=== PATIENT | female | born 1945 | race Caucasian/White ===

== ENCOUNTER → 2016-08-09 | Outpatient (CLI) | payer OTHER ==
[~2016-08-09] MED LIST: ATOR10TA82 PO; COEN100C11 PO; LOSA50TA6 PO; OFLO0.3S4 OPR; OMEG-112 PO; PANT40TA PO; PRED1SUS3 OPR; RALO60TA30 PO; RANI300T2 PO; [UNRECOGNIZED DRUG - OTHER] PO
--- NOTE | 2016-08-09 09:16 | DIAGNOSTIC IMAGING REPORT ---
LEFT PELVIS UNILATERAL HIP 1 VIEW CLINICAL HISTORY: LEFT HIP PAIN COMPARISON STUDY: None. FINDINGS: No fracture or dislocation within the pelvis or hips. There is osteitis pubis. Moderate to severe osteoarthritis within the left hip demonstrated by cartilage space narrowing and marginal osteophytes. There is also subchondral sclerosis. The right hip cartilage spaces maintained for age. The sacrum is intact. IMPRESSION: Moderate to severe left hip osteoarthritis. No fracture or dislocation. Electronically signed by: Alexei Braga M.D. 08/09/2016 9:15 AM Dictated Date/Time: 08/09/2016 9:13 AM
== END | disposition home or self-care (01) ==
LOC: C.RDSM 11:08
PROVIDERS: ATTEND Physician Assistant
DX: M25.552 Pain in left hip (principal)

== ENCOUNTER → 2016-08-15 | Outpatient (CLI) | payer OTHER ==
--- NOTE | 2016-08-15 14:09 | MAMMOGRAPHY REPORT ---
BILATERAL DIGITAL SCREENING MAMMOGRAM WITH CAD: 08/15/2016 CLINICAL HISTORY: Routine screening. Patient has no complaints. TECHNIQUE: Bilateral CC and MLO views were obtained. Current study was also evaluated with a Comput er Aided Detection (CAD) system. COMPARISON: Comparison is made to exams dated: 08/16/2015 mammogram, 01/27/2015 mammogram, 4 mammogram, 01/05/2013 mammogram, 12/20/2011 mammogram, and 12/18/2010 mammogram - [facility]. BREAST COMPOSITION: There are scattered areas of fibroglandular density in both breasts. FINDINGS: There are bilateral scattered and grouped benign rim calcifications in the breasts. Chang german, there are possible new clusters of microcalcifications in the 12:00 and upper outer middle one third of the left breast, for which additional spot magnification views are recommended. No other suspicious mass, architectural distortion or cluster of suspicious microcalcifications is s een bilaterally. IMPRESSION: ACR BI-RADS CATEGORY 0: INCOMPLETE EVALUATION: NEED ADDITIONAL IMAGING EVALUATION The possible new clusters of microcalcifications in the left 12:00 and upper outer breast need addit ional imaging evaluation. The patient will be called to schedule an appointment. Approximately 10% of breast cancers are not detected with mammography. A negative mammographic repor t should not delay biopsy if a clinically suggestive mass is present. Ellie Levin M.D. ay/:08/15/2016 09:36:05 Wet Primer Powder Blender: Janee COLLINS(Dacrie)(M), [facility] letter sent: Addl Imaging 0 BI-RADS Code: ACR BI-RADS Category 0: Incomplete Evaluation: Need Additional Imaging Evaluation
== END | disposition home or self-care (01) ==
LOC: C.MAMM 09:10
PROVIDERS: ATTEND Obstetrics & Gynecology
DX: Z12.31 Encounter for screening mammogram for malignant neoplasm of breast (principal); R92.0 Mammographic microcalcification found on diagnostic imaging of breast

== ENCOUNTER → 2016-08-22 | Outpatient (CLI) | payer OTHER ==
--- NOTE | 2016-08-22 13:13 | MAMMOGRAPHY REPORT ---
UNILATERAL LEFT DIGITAL DIAGNOSTIC MAMMOGRAM: 08/22/2016 CLINICAL HISTORY: Callback from screening mammogram for left breast calcifications. TECHNIQUE: Spot magnification left CC and ML views were obtained. COMPARISON: Comparison is made to exams dated: 08/15/2016 mammogram, 08/16/2015 mammogram, 01/27/2015 ultrasound, 01/27/2015 mammogram, 07/27/2014 mammogram, and 01/27/2014 mammogram - [facility]. BREAST COMPOSITION: There are scattered areas of fibroglandular density in the left breast. FINDINGS: Again noted are loosely grouped benign-appearing calcifications in the left 12:00 breast w hich are stable compared to the 2016 spot magnification views and have coarsened from exams prior to 2016, and are considered benign given the stability and coarsening. However, there is a 4 mm cluster of calcifications in the left upper outer quadrant which are increased compared to prior exams, and are linear in distribution. Given the interval increase and linear distribution, the calcifications are indeterminate and stereotactic biopsy is recommended for further evaluation. IMPRESSION: ACR BI-RADS CATEGORY 4: SUSPICIOUS Increasing cluster of calcifications in a linear distribution in the left upper outer quadrant. The calcifications are indeterminate and stereotactic biopsy is recommended for further evaluation. A phone call was made to the physician's office to confirm faxed results were received. The patient has been verbally notified of the results. She tentatively scheduled the biopsy before leaving the [facility]. Approximately 10% of breast cancers are not detected with mammography. A negative mammographic report should not delay biopsy if a clinically suggestive mass is present. Kristen Davis M.D. /:08/22/2016 11:53:44 Waste Specialist: Janee PIERCE)(Cyn), [facility] letter sent: Abnormal 4/5 BI-RADS Code: ACR BI-RADS Category 4: Suspicious
== END | disposition home or self-care (01) ==
LOC: C.MAMM 11:21
PROVIDERS: ATTEND Obstetrics & Gynecology
DX: R92.0 Mammographic microcalcification found on diagnostic imaging of breast (principal)

== ENCOUNTER → 2016-08-29 | Outpatient (CLI) | payer OTHER ==
--- NOTE | 2016-08-29 13:21 | Discharge Instructions ---
Discharge Instructions Procedure Procedure Date: Aug 29, 2016. Reason for visit: Left Calcs. Discharge Discharge Date: Aug 29, 2016. Discharge Diagnosis: status post breast biopsy Instructions Activity Recommendations: Additional Limitations (see below) Return to School/Work: no limitations Recommended Home Diet: No Limitations Provider Instructions: ACTIVITY RECOMMENDATIONS: * No lifting, pushing, pulling or exercising the affected side for three days. RETURN TO SCHOOL/WORK: * You may return to work/school after the procedure, but do not perform any strenuous activities for 24 to 48 hours. MEDICATIONS: * Tylenol (two 325 mg) every four to six hours if needed for mild pain (if not allergic to Tylenol). DIET: * Resume previous diet. SPECIAL CARE INSTRUCTIONS: * Keep biopsy site dry for 24 hours. May shower after 24 hours, but do not soak (bathe) incision. * May remove Tegaderm (plastic patch) tomorrow AFTER showering. * Leave the steri-strips on for one week. Allow the steri-strips to fall off by themselves. If not off after one week, you may remove them. You may place a Bandaid crosswise over the strips, if desired. * Apply ice 10 minutes on and 10 minutes off as needed. * Wear a bra at bedtime to sleep more comfortably for 2-3 days. * Your referring physician should have the results after approximately 5 to 7 business days. * Call for unusual bleeding, fever, drainage, etc or if you have any questions call during normal business hours or after hours call Dr Davis, . FOLLOW UP VISIT: Follow-up with Referring Physician as scheduled. Allergies Coded Allergies: Cephalexin (Verified Allergy, Unknown, UNKNOWN, 03/02/15) PER PT CAUSED VAGINAL YEAST INFECTION Lisinopril (Verified Allergy, Unknown, UNKNOWN, 03/02/15) PER PT CAUSES COUGH. Amauri Llamas Recommendations: Call your doctor if: * Temperature above 101 degrees * Pain not relieved by pain medicine ordered * There is increased drainage or redness from any incision * You have any unanswered questions or concerns. Your Doctors Instructions noted above were prepared by provider Kristen Davis. Patient Signature Section: Patient Instructions Signature Page Tata Petty Patient (or Guardian) Signature/Date: I have read and understand the instructions given to me by my caregivers. Caregiver/RN/Doctor Signature/Date: The above-named patient and/or guardian has received patient instructions on this date. + Original Patient Signature Page (only) stays with chart. Please make copy for patient.
--- NOTE | 2016-08-29 16:40 | MAMMOGRAPHY REPORT ---
THIS REPORT HAS BEEN AMENDED. STEREOTACTIC GUIDED BIOPSY LEFT BREAST: 08/29/2016 CLINICAL HISTORY: Indeterminate calcifications in the left upper outer quadrant. PATIENT CONSENT: The procedure, risks, benefits, and alternatives of stereotactic biopsy with clip pl acement were discussed with the patient, and verbal and written consent was obtained. A timeout was performed immediately prior to the procedure. PROCEDURE DESCRIPTION: With stereotactic guidance, aseptic technique, and lidocaine as a local anesth etic (1% lidocaine to anesthetize the skin and 1% lidocaine with epinephrine to anesthetize the deepe r tissues), the area of concern in the left upper outer quadrant was sampled multiple times with a 9- gauge vacuum-assisted biopsy needle ([employer]). The path of approach was lateral. The specimen r adiograph demonstrates calcifications to be present in the samples. A metallic marker clip was place d at the biopsy site. This was confirmed on postprocedure mammograms. Direct pressure was applied a t the biopsy site and hemostasis was readily achieved. The patient tolerated the procedure without c omplication. She was given wound care instructions. COMPARISON: Comparison is made to exams dated: 08/22/2016 mammogram, 08/15/2016 mammogram, and 6 mammogram - [facility]. IMPRESSION: STEREOTACTIC GUIDED BIOPSY Stereotactic guided biopsy of indeterminate calcifications in the left upper outer quadrant, with cli p placement. The patient will receive pathology results from her referring provider. Kristen Davis M.D. ah/:08/29/2016 13:22:35 Exhibits Curator: Justyna Haskins RT(R)(M), [facility] AMENDMENT: 10/02/2016 Ellie Levin M.D. Pathology results from the stereotactic guided biopsy of linear microcalcifications in the upper oute r middle one third of the left breast yielded benign breast tissue with microcalcification. Negative for in situ and invasive carcinoma. The pathology results are concordant with the imaging appearanc e. There were other grouped and clustered microcalcifications in the 12:00 middle to posterior left [address]ie[address] st were previously followed with spot magnification views and appear to have coarsened based on those diagnostic images, but given the numerous bilateral microcalcifications, would recommend remaining a diagnostic patient in 12 months at the time of next annual exam to include spot magnification views. These recommendations were discussed with Dr. Godinez at approximately 4 PM on 10/01/2016.
--- NOTE | 2016-08-29 16:40 | MAMMOGRAPHY REPORT ---
UNILATERAL LEFT DIGITAL DIAGNOSTIC MAMMOGRAM: 08/29/2016 CLINICAL HISTORY: Status post left breast stereotactic biopsy. TECHNIQUE: Left CC and LM views were obtained. COMPARISON: Comparison is made to exams dated: 08/22/2016 mammogram, 08/15/2016 mammogram, 08/16/2015 ma mmogram, 01/27/2015 mammogram, 01/27/2014 mammogram, and 01/05/2013 mammogram - [facility]. BREAST COMPOSITION: There are scattered areas of fibroglandular density in the left breast. FINDINGS: A preprocedural left LM view was obtained for biopsy planning purposes. Postprocedural le ft CC and LM views were obtained, which shows a new biopsy marker clip at the site of the biopsied ca lcifications in the left upper outer quadrant. No significant postbiopsy hematoma is seen. IMPRESSION: POST PROCEDURE IMAGING FOR MARKER PLACEMENT New biopsy marker clip status post left breast stereotactic biopsy. Pathology results are pending. Approximately 10% of breast cancers are not detected with mammography. A negative mammographic report should not delay biopsy if a clinically suggestive mass is present. Kristen Davis M.D. ah/:08/29/2016 13:38:41 Awning Maker And Installer: Justyna COLLINS(R)(M), [facility] BI-RADS Code: Post Procedure Imaging For Marker Placement
== END | disposition home or self-care (01) ==
LOC: C.MAMM 12:43
PROVIDERS: ATTEND Obstetrics & Gynecology
DX: R92.0 Mammographic microcalcification found on diagnostic imaging of breast (principal)

== ENCOUNTER → 2017-01-29 | Outpatient (CLI) | payer OTHER | END | disposition home or self-care (01) | LOC: C.MAMM 10:17 | PROVIDERS: ATTEND Family Medicine | DX: Z09 Encounter for follow-up examination after completed treatment for conditions other than malignant neoplasm (principal); Z87.39 Personal history of other diseases of the musculoskeletal system and connective tissue ==

== ENCOUNTER → 2017-05-02 | Outpatient (CLI) | payer OTHER ==
--- NOTE | 2017-05-02 09:38 | DIAGNOSTIC IMAGING REPORT ---
R ANKLE MIN 3 VIEWS ROUTINE, R TIBIA/FIBULA 2 VIEWS ROUTINE CLINICAL HISTORY: 71 years-old Female presenting with M79.606 Leg pain, [id number]. TECHNIQUE: Frontal, mortise, and lateral views of the right ankle as well as frontal and lateral views of the right lower leg were obtained. COMPARISON: Plain radiographs of the right ankle from 08/31/2008. FINDINGS: Right ankle: Ossicle at the inferior pole of the lateral malleolus is unchanged from prior, possibly indicating old avulsion injury or chronic degeneration. Ankle mortise intact. No acute fracture or malalignment. No advanced degenerative change. Inferior bone spur noted at the calcaneus at the origin of the plantar fascia. No gross evidence of an ankle joint effusion. Right lower leg: Knee joint and ankle mortise congruent. Minimal osteophytosis suggested at the medial and patellofemoral compartments of the knee. No acute fracture or malalignment. No radiographic soft tissue abnormality. IMPRESSION: 1. No acute osseous injury of the right ankle. 2. No acute osseous injury of the right lower leg. Electronically signed by: Gurpreet To M.D. 05/02/2017 9:37 AM Dictated Date/Time: 05/02/2017 9:34 AM
== END | disposition home or self-care (01) ==
LOC: C.RAD 09:10
PROVIDERS: ATTEND Psychiatry & Neurology Neurology
DX: M79.604 Pain in right leg (principal)

== ENCOUNTER → 2017-05-08 | Outpatient (CLI) | payer OTHER ==
--- NOTE | 2017-05-08 08:21 | DIAGNOSTIC IMAGING REPORT ---
MRI LUMBAR SPINE W/O CONTRAST CLINICAL HISTORY: M54.16 low back pain with right leg radiculopathy. TECHNIQUE: Sagittal and axial T1, T2 and STIR images were obtained. COMPARISON STUDY: No previous studies for comparison. OBSERVATIONS: T12-L1 endplate edema, is likely on a degenerative discogenic basis. L1-2: No disc protrusions or extrusions. No evidence of spinal canal or neural foraminal compromise. L2-3: No disc protrusions or extrusions. No evidence of spinal canal or neural foraminal compromise. L3-4: There is a mild circumferential disc bulge. There is no significant spinal or foraminal stenosis L4-5: There is a mild circumferential disc bulge. There is facet joint arthropathy. There is no significant spinal or foraminal stenosis. There is a minimal grade 1 spondylolisthesis of L4 on L5 L5-S1: There is a minimal grade 1 spondylolisthesis of L5 on S1. There is a mild circumferential disc bulge. There is no significant spinal or foraminal stenosis. The conus medullaris and cauda equina appear normal. IMPRESSION: Mild multilevel spondylitic changes. No evidence of significant spinal or foraminal stenosis Electronically signed by: Jimmy Brito M.D. 05/08/2017 8:20 AM Dictated Date/Time: 05/08/2017 8:15 AM
== END | disposition home or self-care (01) ==
LOC: C.MRIBC 06:56
PROVIDERS: ATTEND Psychiatry & Neurology Neurology
DX: M54.16 Radiculopathy, lumbar region (principal); M47.896 Other spondylosis, lumbar region

== ENCOUNTER 2019-06-04 04:52 | Inpatient (IN) ==
--- NOTE | 2019-05-20 15:06 | History & Physical Report ---
Date of Service May 20, 2019 Assessment & Plan (1) Primary localized osteoarthrosis of right hip: DIAGNOSIS: Right hip osteoarthritis. PROCEDURE: Right total hip arthroplasty. PLAN: The patient is scheduled to undergo this procedure with Dr. Gurpreet Wu as an inpatient at [facility] on June 04, 2019. Risks and complications of the procedure such as infection, bleeding, pain, scarring, nerve and blood vessel damage, weakness, wound problems, incomplete relief of symptoms, hardware failure, hardware loosening, wire fracture, tendon or ligament injury, dislocation, leg length inequality, localized embolism, heart attack, stroke, and were explained to the patient at her visit yesterday by Dr. Wu. Informed consent from the procedure was obtained. We have obtained preoperative medical clearance from the patient's primary care provider, Dr. Luis Farrell. We have up-to-date labs including CBC with differential, complete metabolic panel, EKG, hemoglobin A1c, and a chest x-ray. We will need a new urinalysis, urine culture, PT/INR, blood type and screen and a nasal culture for MRSA. Patient has her Pre Anesthesia Testing appointment next Saturday at the hospital and will obtain the necessary testing at that time. The patient was scheduled for her 2-week postoperative followup visit with myself on 06/19/19 @ 2 PM. The patient was advised she will be provided with prescriptions for narcotic pain medication upon discharge from the hospital. PDMP was checked. No red flags were raised from prescribing this medication. I also advised her that we will prescribe her with some diclofenac sodium and instructed her about the use of a baby aspirin twice daily and Extra Strength Tylenol postoperatively for DVT prophylaxis and pain control respectively. The patient states that she already has a handicap plackard for her vehicle that is valid until the end of August. The patient has a walker and hip kit that she purchased last August. The patient was given some paperwork in regard to discharge planning. She has attending the lectures in offered by [facility] in regard to joint replacement therapy and has paperwork that instructed her about antibiotic use prior to any dental procedures postoperatively. I provided the patient with a booklet for hip replacement surgery, advised her to read thoroughly, showed her the exercises that she would do for 2 weeks postoperatively. She states she will most likely use [facility] to come into her home to help her do these exercises prior to her 2- week followup visit. The patient verbalized understanding of all information provided during today's visit, thanks us for her care, and states if she has additional questions or concerns that should arise prior to her surgery date, she will contact the clinic accordingly. History of Present Illness Primary Care Provider: Luis Farrell Chief Complaint: Right Hip Pain History of Present Illness: This 74-year-old female presents to the clinic today for preoperative history and physical. This patient was initially scheduled to undergo a Right total hip arthroplasty on 09/12/18 but due to a diagnosis of breast cancer that required surgery, chemotherapy and radiation therapy was delayed until all treatment was complete and clearance from her oncologist. The patient has a longstanding history of significant right hip pain and feels it has become increasingly worse over the past 9 months causing her to limp with ambulation. The patient has failed conservative measurements including physical therapy and use of nonsteroidal agents; Tylenol, turmeric, Voltaren gel. She states that this pain is preventing her from doing her normal daily activities, which include walking, hiking, and gardening. Past Medical History: Problems: Preop examination Trochanteric bursitis History of squamous cell carcinoma Neuropathy Polyneuropathy Degenerative joint disease (DJD) of hip IT band syndrome Biswas's cyst Degenerative arthritis of knee Knee pain, left Prediabetic, prediabetes HTN - Hypertension GERD Hyperlipidemia Allergic rhinitis due to allergen Torn meniscus Family history of cardiovascular disease HEADACHE Hip pain, left Hand pain, left Shoulder joint pain Seasonal allergies Osteoarthrosis of the carpometacarpal joint of the thumb Impingement syndrome of shoulder region H/O: injury Strain of rotator cuff capsule Cholesterol Index finger Family history of OA - Osteoarthritis of joint of finger Fatigue - symptom Breast cancer, left Procedure History Procedure Procedure Date Comments Mohs surgery Insertion of A-port right subclavian vein 11/20/2018 Lumpectomy of left breast 09/26/2018 Surgery 09/26/2018 - left breast partial masectomy Diagnostic mammogram 08/27/2018 - New biopsy clips status post left breast and axillary biopsies. Path report pending Biopsy of breast 08/27/2018 - The differential is taht of invasive lobular cancer versus invasive ductal cancer Ultrasound Guided Biopsy Left Breast 08/27/2018 - Impression:Ultrasound-guided core needle biopsy of the left 11:00 breast mass, with clip placement. The patient will receive pathology results from her referring provider. Unilateral Left Digital Diagnostic Mammogram Tomosynthesis and targeted left ultrasound 08/26/2018 - Impression: ACR BI RADS CATEGORY 4: SUSPICOUS ULTRASOUND.1. There is a persistent irregular and spiculated mass with associated clustered calcification in the 11:00 to 12:00 posterior left breast seen mammographically and on ultrasound. The largest mammographic mreasurement is 15 mm, the largest ultrasound measurement is 11.5 mm, slight differences are felt to be due to the ill-defined nature of this lesion. Further characterization with left breast ultrasound-guided core biopsy is recommended. 2. Left axillary lymph node sampling is also recommended with fine-needle aspiration and possible core biopsy, of the most prominent 33.6 mm lymph node identified in the left axilla. Mammogram 08/21/2018 - acr bi-rads category 0 : incomplete evaluation: need additional imaging evaluation left breast focal asymmetry with possible associated architectural distortion, for which additional imagine evaluation is recommended Mammogram - screening 08/19/2017 - WNL - 1 yr Epidural steroid injection 08/08/2017 - osmin [place] - lumbar MRI of lumbar spine 05/08/2017 - MULTI MIDLEVEL SPONDYLITIC CHANGES. No evidence of significant spinal or foraminal stenosis X-ray of right ankle 05/02/2017 - no acute osseous injury of right ankle Lower leg X-ray-right 05/02/2017 - no acute osseous injur to right lower leg EMG - Electromyography 02/19/2017 - sensory-motor axonal polyneuropathy Femoral neck DEXA scan 01/29/2017 - Z score 1.3 - followup January 2019 Mammogram 08/29/2016 - amended biopsy left breastnegative for in situ & invasive carcinomarepaet 1 yr unilateral left mammogram 08/22/2016 - increasing cluster of calcifications in a linear distrubution in the left upper outer quadrant. The calcifications are indeterminate and stereotactic biopsy is recommended for further evaluation - Dr. Flores ordered Mammogram - screening 08/15/2016 - benign breast tissue with microcalcifications, Negative for in Situ and invasive carcinoma - stereotactic guided biopsy - there are bilateral scattered and grouped benign rim calcifications in the breasts. However, there are possible new clusters of microcalcifications in the 12:00 and upper outer middle one third of the left breast, for which additional spot magnification views are recommended. Skeletal X-ray of pelvis and hip 08/09/2016 - Moderate to severe left hip osteoarthritis. No fracture or dilocation Biswas's cyst 07/16/2016 - aspiratio Mammogram - screening 08/16/2015 - WNL - 1yr X-ray of left knee 07/19/2015 - exophytic bony exostosis projecting from the proximal fibula. Study of knee is otherwise negative. Cataract extraction 03/02/2015 - senile cataract, left eye Cataract extraction 02/16/2015 - senilr nuclear right eye Mammogram abnormal 01/27/2015 - lenghty report - repeat 6 months PAP test date 10/01/2014 Mammogram - screening 07/27/2014 - cluster calcifications - recheck 6 months Mammogram 01/27/2014 - New clustered microcalcifications in left breast benign. Short interval f/u recommended. Abnormal mammogram 01/11/2014 - need compression views of left breast Mammogram 01/05/2013 - No evidence of malignancy Right shoulder /SAD/biceps Tenotomy 10/21/2012 EKG-preop 09/29/2012 R shoulder x-ray-PSSM 07/21/2012 DEXA-Normal 10/16/2010 - Repeat in 5 yearas rec : OCT 2015 COLONOSCOPY 03/18/2008 Cardiac Cath--WNL 03/18/2004 Dermabrasion to face 03/18/2002 Stress ECHO-False Positive 05/16/2001 FNA RIGHT BREAST 03/18/2001 Fusion Fifth Metatarsal RIGHT foot 03/18/1997 Right foot surgery 1995 BRANNON-BSO 03/18/1993 Dermabrasion to face 03/18/1991 RIGHT Axillary growth removed-BENIGN 03/18/1952 Allergies and Sensitivities: Keflex(vaginitis) Allergy Not found in Search(nasal congestion) lisinopril(COUGH) Current Home Meds: (Last Updated 05/19 07:58) vitamin D (Calcium 600+D) 1 tab PO bid; glucosamine (glucosamine-chondroitin 600 mg-750 mg oral tablet) PO BID; topical (diclofenac 1% topical gel)apply 1 APPLICATION TOPICALLY four times a day if needed - NOT TO EXCEED 16 GRAMS/DAY/SINGLE JOINT OF LOWER EXTREMITIES; (Pepcid 20 mg oral tablet) 10 mg PO Daily avoid eating and drinking for 10 minutes after each dose & use prn; losartan (hydroCHLOROthiazide-losartan 12.5 mg-50 mg oral tablet) take 1 tablet by mouth once daily 90 DAY SUPPLY PER INSURANCE PLEASE letrozole 2.5 mg PO Daily; topical (mometasone 0.1% topical cream) 1 appl topical bid apply to forehead dermatitis until clear and then as needed multivitamin(Aleve) prn; polyunsaturated fatty acids (omega-3 polyunsaturated fatty acids 1100 mg oral delayed release capsule)(pantoprazole 40 mg oral delayed release tablet) take 1 tablet by mouth once daily(Crestor 10 mg oral tablet) 10 mg PO qhs; (Coenzyme Q10) 100 mg PO Daily Date 05/19 07:58 Temp 36.6 Pulse 84 BP 126/70 RR 24 SpO2 97% Wt(kg) 36.6 Physical Exam: Skin: Patient's skin is normal in appearance. No open skin lesions or discharge. Eyes: Pupils are equal reactive to light and accommodating. Extraocular movements are intact. Throat: Posterior pharynx clear with absence of edema, erythema, or exudate. Cardiovascular Exam: Patient has a regular rate and rhythm with no murmurs or gallops appreciated. Lungs: Auscultation of lung myers reveals clear breath sounds throughout with no wheezing, rales, or rhonchi. Abdomen is not obese, nondistended, nontender with normoactive bowel sounds. Extremities: Right hip, the patient has negative Logroll test, positive straight leg raise test, positive Stinchfield test. Flexion to 130 degrees. She has no pain with light internal and external rotation. SHIRLEY test is 3 fists. Quad strength is 3.5 to 5/5. There is tenderness to palpation over the posterior aspect of the hip. Pain when patient performs straight leg raise test and Stinchfield test is referred to the anterior groin. The patient is neurovascularly intact in the right lower extremity. External rotation is to 30 degrees and internal rotation to 10 degrees. The patient's gait is antalgic. Neurological Exam: Cranial nerves 2 through 12 are intact. No motor or sensory deficits. Psychological/General Exam: The patient is alert and oriented x3 with proper grooming and hygiene. DIAGNOSIS: Right hip osteoarthritis. PROCEDURE: Right total hip arthroplasty. PLAN: The patient is scheduled to undergo this procedure with Dr. Gurpreet Wu as an inpatient at [facility] on June 04, 2019. Risks and complications of the procedure such as infection, bleeding, pain, sc arring, nerve and blood vessel damage, weakness, wound problems, incomplete relief of symptoms, hardware failure, hardware loosening, wire fracture, tendon or ligament injury, dislocation, leg length inequality, localized embolism, heart attack, stroke, and were explained to the patient at her visit yesterday by Dr. Wu. Informed consent from the procedure was obtained. We have obtained preoperative medical clearance from the patient's primary care provider, Dr. Luis Farrell. We have up-to-date labs including CBC with differential, complete metabolic panel, EKG, hemoglobin A1c, and a chest x-ray. We will need a new urinalysis, urine culture, PT/INR, blood type and screen and a nasal culture for MRSA. Patient has her Pre Anesthesia Testing appointment next Saturday at the hospital and will obtain the necessary testing at that time. The patient was scheduled for her 2-week postoperative followup visit with myself on 06/19/19 @ 2 PM. The patient was advised she will be provided with prescriptions for narcotic pain medication upon discharge from the hospital. PDMP was checked. No red flags were raised from prescribing this medication. I also advised her that we will prescribe her with some diclofenac sodium and instructed her about the use of a baby aspirin twice daily and Extra Strength Tylenol postoperatively for DVT prophylaxis and pain control respectively. The patient states that she already has a handicap plackard for her vehicle that is valid until the end of August. The patient has a walker and hip kit that she purchased last August. The patient was given some paperwork in regard to discharge planning. She has attending the lectures in offered by [facility] in regard to joint replacement therapy and has paperwork that instructed her about antibiotic use prior to any dental procedures postoperatively. I provided the patient with a booklet for hip replacement surgery, advised her to read thoroughly, showed her the exercises that she would do for 2 weeks postoperatively. She states she will most likely use [facility] to come into her home to help her do these exercises prior to her 2- week followup visit. The patient verbalized understanding of all information provided during today's visit, thanks us for her care, and states if she has additional questions or concerns that should arise prior to her surgery date, she will contact the clinic accordingly. Allergies Allergy/AdvReac Type Severity Reaction Status Date / Time cephalexin Allergy Unknown VAGINITIS Verified 02/23/19 11:33 adhesive tape AdvReac Mild SKIN Verified 02/23/19 11:33 IRRITATION AT TIMES-SOME TAPES lisinopril AdvReac Unknown Cough Verified 02/23/19 11:33 Home Medications Home Medications Medication Instructions Recorded Confirmed Type Calcium 600 with Vitamin D3 1 tab PO BID 08/15/18 02/23/19 History Centrum Silver 1 tab PO QAM 08/15/18 02/23/19 History Glucosamine-Chondr (boswellia) 1 tab PO BID 08/15/18 02/23/19 History coenzyme Q10 [CoQ-10] 100 mg PO QPM 08/15/18 02/23/19 History losartan-hydrochlorothiazide 1 tab PO QAM 08/15/18 02/23/19 History omega-3 fatty acids [Fish Oil 1,000 mg PO QAM 08/15/18 02/23/19 History Concentrate] rosuvastatin 10 mg PO QPM 08/15/18 02/23/19 History acetaminophen [Tylenol Extra 1,000 mg PO BID PRN 11/11/18 02/23/19 History Strength] naproxen sodium [Aleve] 220 mg PO BID PRN 11/11/18 02/23/19 History pantoprazole 40 mg tablet,delayed 40 mg PO PRN tab 12/31/18 02/23/19 History release raloxifene 60 mg tablet 60 mg PO QAM 12/31/18 02/23/19 History cannabidiol 100 mg/mL oral solution PO DAILY ml 03/02/19 02/23/19 History fluocinonide 0.05 % topical cream 1 applic TOP QID PRN #60 gm 03/02/19 Rx Past Med/Surg History Medical History Anxiety NO MEDS 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 Per patient negative test-NO ISSUES SINCE Hx of migraines Hx of rosacea Hyperlipidemia Hypertension Osteoarthritis Port-A-Cath in place (11/20/18) Insertion of A-Port Right Subclavian Vein Dr. Payne 11-20-18 Seasonal allergies Surgical History H/O excision of mass SQUAMOUS CELL SKIN BETWEEN BREASTS H/O partial mastectomy 09/2018 WITH NODE BX-[facility]-GETTING CHEMO Q 3 WEEKS BINH History of cardiac cath 2004 [facility]-NO PROBLEMS/NO STENTS History of colonoscopy History of Mohs micrographic surgery for skin cancer nose Hx of foot surgery right Hx of rotator cuff surgery right Hx of total hysterectomy S/P cataract surgery R/L Status post epidural steroid injection done 06/2017 and 07/2017 Family History Father , age 80 stroke Family history of diabetes mellitus Brother Age: 80 Family history of diabetes mellitus Hypertension Heart disease Grandmother (Paternal) , in her seventies perhaps cause unknown Family history of diabetes mellitus Sister Age: 60 Hypertension Breast cancer Mother , of heart disease Heart disease Social History Preferred Language: Czech Communication Ability: Effective Visual Impairment: No Limitations 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 5-6 cigarettes per week. ; Second Hand Exposure: No ; Hx Alcohol Use: Yes Alcohol type: beer and wine Hx Substance Use: No Review of Systems All systems reviewed & are unremarkable except as noted in HPI & below Physical Exam Physical Exam: Physical Exam: Skin: Patient's skin is normal in appearance. No open skin lesions or discharge. Eyes: Pupils are equal reactive to light and accommodating. Extraocular movements are intact. Throat: Posterior pharynx clear with absence of edema, erythema, or exudate. Cardiovascular Exam: Patient has a regular rate and rhythm with no murmurs or gallops appreciated. Lungs: Auscultation of lung myers reveals clear breath sounds throughout with no wheezing, rales, or rhonchi. Abdomen is not obese, nondistended, nontender with normoactive bowel sounds. Extremities: Right hip, the patient has neg ative Logroll test, positive straight leg raise test, positive Stinchfield test. Flexion to 130 degrees. She has no pain with light internal and external rotation. SHIRLEY test is 3 fists. Quad strength is 3.5 to 5/5. There is tenderness to palpation over the posterior aspect of the hip. Pain when patient performs straight leg raise test and Stinchfield test is referred to the anterior groin. The patient is neurovascularly intact in the right lower extremity. External rotation is to 30 degrees and internal rotation to 10 degrees. The patient's gait is antalgic. Neurological Exam: Cranial nerves 2 through 12 are intact. No motor or sensory deficits. Psychological/General Exam: The patient is alert and oriented x3 with proper grooming and hygiene.
--- NOTE | 2019-05-25 16:14 | PAT Medication Instructions ---
Medication Instructions Date of Service May 25, 2019 Home Medications Medication Instructions Recorded fluocinonide 0.05 % topical cream 1 applic TOP QID PRN #60 gm 03/02/19 Centrum Silver 1 tab PO QAM Glucosamine-Chondr (boswellia) 1 tab PO BID coenzyme Q10 [CoQ-10] 100 mg PO QPM losartan-hydrochlorothiazide 1 tab PO QAM omega-3 fatty acids [Fish Oil Concentrate] 1,000 mg PO QAM rosuvastatin 10 mg PO QPM acetaminophen [Tylenol Extra Strength] 1,000 mg PO BID PRN naproxen sodium [Aleve] 220 mg PO BID PRN pantoprazole 40 mg tablet,delayed release 40 mg PO PRN fluocinonide 0.05 % topical cream 1 applic TOP QID PRN calcium carbonate-vitamin D3 [Calcium 600 + D(3)] 1 tab PO BID letrozole 2.5 mg PO QAM ASK your surgeon for instructions naproxen sodium [Aleve] 220 mg PO BID PRN STOP taking 2 weeks before surgery If surgery is within 2 weeks, stop taking as soon as possible. Glucosamine-Chondr (boswellia) 1 tab PO BID coenzyme Q10 [CoQ-10] 100 mg PO QPM omega-3 fatty acids [Fish Oil Concentrate] 1,000 mg PO QAM STOP taking 24 hours before surgery fluocinonide 0.05 % topical cream 1 applic TOP QID PRN DO NOT take the morning of surgery Centrum Silver 1 tab PO QAM losartan-hydrochlorothiazide 1 tab PO QAM calcium carbonate-vitamin D3 [Calcium 600 + D(3)] 1 tab PO BID Take morning of surgery With a small sip of water, OTHERWISE NOTHING TO EAT OR DRINK AFTER MIDNIGHT: acetaminophen [Tylenol Extra Strength] 1,000 mg PO BID PRN (if needed, may be taken up to four hours before surgery) pantoprazole 40 mg tablet,delayed release 40 mg PO PRN (if needed) letrozole 2.5 mg PO QAM Take evening before surgery rosuvastatin 10 mg PO QPM acetaminophen [Tylenol Extra Strength] 1,000 mg PO BID PRN (if needed) pantoprazole 40 mg tablet,delayed release 40 mg PO PRN (if needed) Other Notes If you have any questions please call us at [phone] or [phone] or [phone] or [phone]
--- NOTE | 2019-05-26 08:56 | Anesthesiology Consultation ---
Date of Service May 26, 2019 Assessment & Plan (1) Encounter for pre-operative examination: Chart Review Chart Review: Acceptable Risk for Surgery (pending surgeon-ordered PCP clearance) and Patient seen in Pre Admission Testing Teaching & Discussion Instructed NPO after midnight before surgery, except medications with 15 cc of water. Medication instructions provided according to the PAT guidelines. History Surgery Operation Date: 06/04/19 11:35 Proposed Procedures p Right Total Hip Arthroplasty - Gurpreet Wu MD Height/Weight Height: 5 ft 6 in Weight: 67.5 kg Allergies Allergy/AdvReac Type Severity Reaction Status Date / Time cephalexin Allergy Unknown VAGINITIS Verified 05/25/19 15:17 adhesive tape AdvReac Mild SKIN Verified 05/25/19 15:17 IRRITATION AT TIMES-SOME TAPES lisinopril AdvReac Unknown Cough Verified 05/25/19 15:17 Medications Home Medications Medication Instructions Recorded Confirmed Last Taken Centrum Silver 1 tab PO QAM 08/15/18 05/25/19 11/19/18 06:30 Glucosamine-Chondr (boswellia) 1 tab PO BID 08/15/18 05/25/19 11/16/18 19:00 coenzyme Q10 [CoQ-10] 100 mg PO QPM 08/15/18 05/25/19 11/16/18 19:00 losartan-hydrochlorothiazide 1 tab PO QAM 08/15/18 05/25/19 11/19/18 06:30 omega-3 fatty acids [Fish Oil 1,000 mg PO QAM 08/15/18 05/25/19 11/16/18 06:30 Concentrate] rosuvastatin 10 mg PO QPM 08/15/18 05/25/19 11/19/18 19:00 acetaminophen [Tylenol Extra 1,000 mg PO BID PRN 11/11/18 05/25/19 11/19/18 20:00 Strength] naproxen sodium [Aleve] 220 mg PO BID PRN 11/11/18 05/25/19 Unknown pantoprazole 40 mg tablet,delayed 40 mg PO PRN PRN tab 12/31/18 05/25/19 Unknown release fluocinonide 0.05 % topical cream 1 applic TOP QID PRN #60 gm 03/02/19 05/25/19 Unknown calcium carbonate-vitamin D3 1 tab PO BID 05/25/19 05/25/19 Unknown [Calcium 600 + D(3)] letrozole 2.5 mg PO QAM 05/25/19 05/25/19 Unknown Past Medical History Medical History GERD (gastroesophageal reflux disease) History of breast cancer (~2018) L BREAST 2019 [place] Finished chemo 12/2018, finished radiation 02/2019. History of neuropathy Legs. Resolved with steroid injections by pain mgmt. History of palpitations 2003 - cardiac workup included stress test, which was + for reversible ischemia -- sent to [place] for cath (no stents). Per patient cath was clear. No issues since, does not follow with cardio. Hx of migraines Hx of rosacea Hx of skin cancer, basal cell Hx of squamous cell carcinoma of skin Hyperlipidemia Hypertension Osteoarthritis Port-A-Cath in place (11/20/18) Insertion of A-Port Right Subclavian Vein Dr. Payne 11-20-18 Seasonal allergies Exercise / Class Metabolic Activity II 4-5 Yardwork/Stairs/Walk up hill (DOES STAIRS DAILY AT HOME, USING CANE FOR HIP PAIN, NO SOB OR CP) Past Family History Family History Father , age 80 stroke Family history of diabetes mellitus Brother Age: 80 Family history of diabetes mellitus Hypertension Heart disease Grandmother (Paternal) , in her seventies perhaps cause unknown Family history of diabetes mellitus Sister Age: 60 Hypertension Breast cancer Mother , of heart disease Heart disease Past Surgical History Surgical History H/O excision of mass SQUAMOUS CELL SKIN BETWEEN BREASTS H/O partial mastectomy L SIDE 09/2018 WITH [facility] [place] of cardiac [place] [facility] [place]AL STRESS TEST-NO STENTS, PT REPORTS NO CAD. History of colonoscopy History of Mohs micrographic surgery for skin cancer nose Hx of bilateral cataract extraction Hx of foot surgery right Hx of rotator cuff surgery right Hx of total hysterectomy Status post epidural steroid injection done 06/2017 and 07/2017 Past Anesthesia History No Hx of Anesthesia Complications and No Family Hx of Anesthesia Complications History of PONV No Hx of PONV and No Hx of Motion Sickness Social History Smoking Status: Former smoker Do You Dip or Chew Tobacco: No Smoking End Date: QUIT Hx Alcohol Use: Yes Alcohol type: beer and wine alcohol intake frequency: 0-2 drinks per day (2/day) Hx Substance Use: No Review of Systems Pt denies any recent chest pain, shortness of breath, palpitations, cough, fever or URI. +seasonal allergies/runny nose/mild congestion Physical Exam Vital Signs BP: 134/79 P: 77bpm SPO2: 97% RA T: 98.2 R: 12 ENMT Mouth: + dentures (partial upper); no chipped teeth and no loose teeth Thyromental Distance: > or= 3.5 Finger Breadths (3.5) Mallampati Class: I Neck normal visual inspection; neck extension not limited Respiratory normal respiratory effort Auscultation: lungs clear to auscultation bilaterally Cardiovascular Rate/Rhythm: regular rate and regular rhythm Heart Sounds: no murmur Extremities: no edema Testing Laboratory Results PT 10.6 Seconds (9.0-12.0) 05/26/19 09:14 INR 1.0 (0.9-1.1) 05/26/19 09:14 Urine Color Yellow 05/26/19 09:14 Urine Appearance Clear (Clear) 05/26/19 09:14 Urine pH 8.5 (4.5-7.5) H 05/26/19 09:14 Ur Specific [place] 1.009 (1.000-1.030) 05/26/19 09:14 Urine Protein Negative (Negative) 05/26/19 09:14 Urine Glucose (UA) Negative (Negative) 05/26/19 09:14 Urine Ketones Negative (Negative) 05/26/19 09:14 Urine Nitrite Negative (Negative) 05/26/19 09:14 Ur Leukocyte Esterase Negative (Negative) 05/26/19 09:14 Blood Type O Positive 05/26/19 09:14 Antibody Screen NEGATIVE 05/26/19 09:14 05/26/19 09:14 Urine Culture - Final Urine,Clean Catch Alpha strep. not enterococcus 05/12/19 WBC: 3.55 H/H: 12.6/37.6 PLATELETS: 202 SODIUM: 134 POTASSIUM: 3.9 CHLORIDE: 100 CO2: 28 BUN: 14 CREATININE: 0.71 GLUCOSE: 102 A1C: 5.9% Electrocardiogram Date: 08/20/18 Findings: + NSR @ (72bpm) Chest X-Ray Date: 11/20/18 IMPRESSION: 1. A right subclavian central venous infusion port has been placed as above. No pneumothorax is identified post procedure. 2. The lungs are clear.
[2019-05-26 10:12] LABS: Appearance Urine Clear (Clear); Bilirubin Urine Negative (Negative); Blood Urine Negative (Negative); Color Urine Yellow; Glucose Urine UA Negative (Negative); Ketones Urine Negative (Negative); Leukocyte Esterase Urine Negative (Negative); Nitrite Urine Negative (Negative); Protein Urine Negative (Negative); Prothrombin Time 10.6 Seconds (9.0-12.0); Specific Gravity Urine 1.009 (1.000-1.030); Urobilinogen Urine Negative (Negative); pH Urine 8.5 (4.5-7.5)
[2019-06-04] MEDS ORDERED: ACETAMINOPHEN 500 MG TAB PO SCH (06:00)
[2019-06-04] MEDS ORDERED: SCOPOLAMINE 1.5 MG TDSY TD SCH (06:00)
[2019-06-04] MEDS ORDERED: TRANEXAMIC ACID 1,000 MG **IV Pre-op IV SCH (06:00)
[2019-06-04] MEDS ORDERED: CEFAZOLIN 2000MG 2,000 MG/15 ML SYR IV SCH (06:00)
[2019-06-04] MEDS ORDERED: TRANEXAMIC ACID 1,000 MG **IV Intra-op IV SCH (06:00)
[2019-06-04] MEDS ORDERED: METOCLOPRAMIDE HCL 10 MG TABLET PO SCH (06:00)
[2019-06-04] MEDS ORDERED: FAMOTIDINE 20 MG TAB PO SCH (06:00)
[2019-06-04] MEDS ORDERED: TRAMADOL HCL 50 MG TABLET PO SCH (06:00)
[2019-06-04] MEDS ORDERED: dexAMETHasone 4 MG TAB PO SCH (06:00)
[2019-06-04] MEDS ORDERED: CeleBREX 200 MG CAP PO SCH (06:00)
[2019-06-04] MEDS ORDERED: ROPIVACAINE 0.5% HCL/PF 150 MG, BUPIVACAINE 0.5% MPF 30 ML, EPINEPHrine 0.15 MG, Ketoro... INFIL SCH (06:00)
[2019-06-04] MEDS ORDERED: LR 60ML/HR IV SCH (06:00)
[2019-06-04] MEDS ORDERED: LR 500ML BOLUS, THEN 15ML/HR IV SCH (06:00)
[2019-06-04] MEDS ORDERED: BUPIVACAINE 0.5 % 5 MG/1 ML PF 10ML VIAL ONE (06:22)
[2019-06-04] MEDS ORDERED: ORTHO JOINT ANESTHETIC ONE (06:35)
[2019-06-04] MEDS ORDERED: BACITRACIN INJ 50,000 UNIT VIAL ONE (06:35)
[2019-06-04] MEDS ORDERED: fentaNYL citrate 100 MCG/2 ML VIAL ONE (06:42)
[2019-06-04] MEDS ORDERED: MIDAZOLAM HCL 1 MG/ML 2ML VIAL ONE (06:43)
[2019-06-04] MEDS ORDERED: ATROPINE SULFATE 0.1 MG/ML 10ML SYR IV PRN (06:46)
[2019-06-04] MEDS ORDERED: fentaNYL citrate 100 MCG/2 ML VIAL IV PRN (06:46)
[2019-06-04] MEDS ORDERED: ONDANSETRON INJ 2 MG/ML 2 ML VIAL IV PRN ×2 (06:46→08:54)
[2019-06-04] MEDS ORDERED: ePHEDrine sulfate 50 MG/ML AMP IV PRN (06:46)
--- NOTE | 2019-06-04 07:08 | History & Physical Bridge Note ---
Date of Service June 04, 2019 History & Physical Bridge Note I have examined the patient, reviewed the History & Physical and in the interval since the performance of the History & Physical I have noted the following changes of clinical significance: no changes noted
[2019-06-04] MEDS ORDERED: LIDOCAINE HCL 2% 2 ML VIAL/AMP(20MG/ML) INFIL ONE (07:40)
[2019-06-04] MEDS ORDERED: ePHEDrine sulfate 50 MG/ML SYR ONE (07:40)
[2019-06-04] MEDS ORDERED: PROPOFOL IV EMULSION 10 MG/ML 20 ML VIAL IV ONE (07:40)
[2019-06-04] MEDS ORDERED: PHENYLEPHRINE 100MCG/ML 5ML SYR ONE (07:40)
--- NOTE | 2019-06-04 08:39 | Post Operative Brief Note ---
Immediate Post Op Note v1 Date of Surgery June 04, 2019 Pre & Post Diagnosis Operation Date: 06/04/19 07:00 Pre-Op Diagnosis: Right Hip Arthritis Post-Op Diagnosis: Right Hip Arthritis I identified the patient and participated in the time-out.: Yes Procedure Operation Date: 06/04/19 07:00 Actual Procedures p Right Total Hip Arthroplasty(Right) - Gurpreet Wu MD Surgeon Gurpreet Wu MD Wallpaper Inspector And Shipper JOSHUA Beverly PA-C Estimated Blood Loss 100 Findings Consistent with Post-Op Diagnosis Fluids 1200 cc Specimens Femoral head Anesthesia Type Spinal MAC Complications none Disposition Accompanied Patient To Recovery: No Disposition: Recovery Room
[2019-06-04] MEDS ORDERED: DiphenhydrAMINE HCL 50 MG/ML VIAL IV PRN (08:54)
[2019-06-04] MEDS ORDERED: OXYCODONE HCL IR 5 MG TAB (IMMEDIATE RELEASE) PO PRN (08:54)
[2019-06-04] MEDS ORDERED: ALUMINUM/MAGNESIUM SUSP 30 ML UDC PO PRN (08:54)
[2019-06-04] MEDS ORDERED: MAGNESIUM HYDROXIDE SUSP 30 ML UDC PO PRN (08:54)
[2019-06-04] MEDS ORDERED: NALOXONE HCL 0.4 MG/1 ML VIAL/CARP IV PRN (08:54)
[2019-06-04] MEDS ORDERED: METOCLOPRAMIDE HCL INJ 5 MG/ML 2 ML VIAL IV PRN (08:54)
[2019-06-04] MEDS ORDERED: bisacodyL 10 MG SUPP PR PRN (08:54)
--- NOTE | 2019-06-04 08:54 | Operative Report ---
Post Operative Report Pre & Post Diagnosis Operation Date: 06/04/19 07:00 Pre-Op Diagnosis: Right Hip Arthritis Post-Op Diagnosis: Right Hip Arthritis I identified the patient and participated in the time-out.: Yes Procedure Operation Date: 06/04/19 07:00 Actual Procedures p Right Total Hip Arthroplasty(Right) - Gurpreet Wu MD Surgeon Gurpreet Wu MD Business Services Assistant JOSHUA Beverly PA-C Estimated Blood Loss 100 Findings Consistent with Post-Op Diagnosis Specimens femoral head Complications none Disposition Accompanied Patient To Recovery: Yes Disposition: Recovery Room Description of Procedure I was present during the entire case assisting with retraction, wound closure and dressing application. Please see Dr. Wu procedure note for specifics of the case. I attest to the content of the Intraoperative Record and any orders documented therein. Any exceptions are noted below.
[2019-06-04] MEDS ORDERED: FLUOCINONIDE 0.05% CR 15 GM TUBE EXT PRN (08:58)
[2019-06-04] MEDS ORDERED: ACETAMINOPHEN 500 MG TAB PO PRN (08:58)
[2019-06-04] MEDS ORDERED: PANTOprazole 40 MG TAB PO PRN (08:58)
[2019-06-04] MEDS ORDERED: NON-FORMULARY MEDICATION (Multivit-Min-Fa-Lycopen-Lutein [Centrum Silver] 1 TAB) PO SCH (09:00)
--- NOTE | 2019-06-04 09:19 | XRay Report ---
AP PELVIS, CROSSTABLE LATERAL RIGHT HIP History: Right total hip arthroplasty. Degenerative arthritis. Postop. FINDINGS: The patient is status post a right total hip arthroplasty. The hardware is intact. No fract ure or dislocation. IMPRESSION: Right total hip arthroplasty. No evidence for hardware complication ACT 112: Negative or not required by law. Electronically signed by: Alexei Braga M.D. 06/04/2019 9:18 AM
--- NOTE | 2019-06-04 09:25 | Anesthesiology Progress Note ---
Date of Service June 04, 2019 Anesthesia Post Procedure Vital Signs Vital Signs: Temp Pulse Pulse Resp BP Pulse Ox 06/04/19 09:15 97.3 F L 92 H 17 132/71 100 06/04/19 09:05 80 19 142/66 H 100 06/04/19 08:55 79 10 L 132/69 100 06/04/19 08:49 96.8 F L 86 24 131/87 100 06/04/19 05:54 98.2 F 76 18 179/89 H 100 Transfer of Care Handoff Completed per policy Notes Mental Status: alert / awake / arousable and participated in evaluation Patient Amnestic to Procedure: Yes Nausea / Vomiting: adequately controlled Pain: adequately controlled Airway Patency, RR, SpO2: stable & adequate BP & HR: stable & adequate Hydration State: stable & adequate Neuraxial Anesthesia: was administered and sensory block is resolving Anesthetic Complications: no major complications apparent and Pt Satisfied with anesthetic care
[2019-06-04] MEDS ORDERED: NAPROXEN 250 MG TAB PO PRN (10:44)
[2019-06-04] MEDS ORDERED: SODIUM CHLORIDE 0.9% 1000ML 1,000 ML IV SCH (10:45)
--- NOTE | 2019-06-04 11:30 | Operative Report (OR) ---
DATE OF OPERATION: 06/04/2019 PREOPERATIVE DIAGNOSIS: Right hip osteoarthritis. POSTOPERATIVE DIAGNOSIS: Same. OPERATIONS PERFORMED: Right total hip arthroplasty. SURGEON: Gurpreet Wu MD. NURSE RECRUITER: Vale Beverly. ESTIMATED BLOOD LOSS: 100 mL. SPECIMENS: Femoral head. COMPLICATIONS: None. IMPLANTS: 1. DePuy [place] acetabular sector cup with Gription size 52 mm outer diameter. 2. Polyethylene liner for 32 mm femoral head, neutral Ultrex polyethylene. 3. Cancellous bone screw 6.5 mm x 30 mm. 4. DePuy [place] standard offset size 6 tapered stem. 5. Articuleze metal femoral head 32 mm diameter with a +1 offset. INDICATIONS: The patient is a 74-year-old female who has had right hip pain for the last several years. I actually had her on the operating room schedule for 1 year ago until she was diagnosed with breast cancer and had to have surgery and chemotherapy to treat her breast cancer. She has now recovered and is medically cleared for surgery. She has excruciating pain that is affecting her activities of daily living. I had a long discussion with her about the risks and benefits of surgery, alternatives to surgery and expected outcomes. After reviewing all these, she elected to proceed with surgery. All questions were answered. Informed consent was signed. OPERATIVE FINDINGS: Degenerative osteoarthritis of the right hip. A metal on polyethylene bearing total hip arthroplasty was performed through posterior approach. DESCRIPTION OF THE OPERATION: The patient was identified in the preoperative holding area where her surgical site was marked. She was given a spinal anesthetic, then brought back to main operating room where she was placed on the operating room table in the lateral decubitus position. Axillary roll was placed. All bony prominences were padded. Perioperative antibiotics were administered. She was prepped and draped in normal sterile fashion. Prior to incision, a multidisciplinary timeout was called. All in the room were in agreement. We began by making a 14 cm long curved incision for posterior approach to the hip. I dissected down through subcutaneous tissues to the level of the fascia. The fascia was incised in line with the incision. The [place] was placed. The trochanteric bursa was excised. The short external rotators and piriformis were dissected off the posterior hip capsule and a box cut was made in the capsule. The femoral head was dislocated. Our center of femoral head to lesser trochanter distance was measured at 58 mm. I then made a femoral neck cut at 13 mm, which was our preoperative template. We then exposed the acetabulum. The labrum was sharply excised. The contents of the cotyloid fossa were removed with electrocautery. We then began reaming with a size 42 mm reamer. This was used to medialize the acetabulum and removed the medial osteophytes. I then sequentially reamed her up all the way to a size 52 cup. This gave us a good cancellous bleeding bone circumferentially. We then irrigated out the acetabulum and opened up the size 52 Gription acetabular sector cup. This was impacted into position with 45 degrees of lateral opening and 25 degrees of anteversion. A single cancellous screw was placed up into the ilium. Excellent fixation was obtained. The polyethylene liner was then placed into position. The locking mechanism was checked and it had engaged. We then removed a posterior inferior osteophyte using a curved osteotome. The femur was then exposed. Next, the lateral hip capsule and the lateral neck were removed with a box osteotome. Intramedullary guide was used followed by the lateralizing reamer. I then reamed her up to a size 6 [place] femoral stem. I then broached her up to a size 5. We initially began trialing with a size 5 broach. However, even with the +5 head in a standard neck segment she was short on her leg lengths. Therefore, I elected to upsize her to the 6 broach. This had a little bit proud from our femoral neck cut, but when we trialed her with a +5 offset head she had symmetric leg lengths and appropriate shuck test. She was stable in the extension and external rotation position. She was stable in the sleeper position. At 90 degrees of hip flexion, she could be internally rotated up to 50 degrees before leaving out of the cup. I was happy with the stability exam. Therefore, removed the size 6 broach. I then irrigated out the femoral canal and opened up the size 6 standard offset [place] femoral stem. This was impacted down into position. It did sit about 2 mm more proud than the broach. Therefore, I trialed her with the +1.5 head. This gave us a similar stability exam to prior and her center femoral head to lesser trochanter distance was 58, reproducing her akhiok offset. I therefore opened up a 32 mm +1 metal femoral head and gently impacted this onto the trunnion. The hip was then atraumatically reduced. The wound was irrigated with dilute Betadine solution. The periarticular injection was then placed. The piriformis, short external rotators and posterior hip capsule were repaired through holes in the posterior aspect of the greater trochanter with #2 Vicryl sutures. The fascia was run with a looped #1 PDS. The subcutaneous layer was closed with a running #1 PDS. Deep dermal layer was closed with running 2-0 Vicryl. Zipline was used for the skin followed by a Silverlon dressing and a compressive dressing over the top of this. The patient was then carefully rolled supine, transferred to recovery room in stable condition with an abduction pillow in place. POSTOPERATIVE COURSE: The patient will be admitted overnight in the hospital for pain control and monitoring. She will be weightbearing as tolerated with posterior hip precautions. Aspirin for DVT prophylaxis. I attest to the content of the Intraoperative Record and any orders documented therein. Any exception s are noted below.
[2019-06-04] MEDS: LOSARTAN/HCTZ 50/12.5MG TAB PO SCH (12:27)
[2019-06-04] MEDS: CALCIUM 600MG + VIT D 400 IU TAB PO SCH ×2 (12:27→20:57)
[2019-06-04] MEDS: OMEGA-3 (PURIFIED FISH OIL) 1 GM CAP PO SCH (12:27)
[2019-06-04] MEDS: ASPIRIN 81 MG ECTAB PO SCH ×2 (12:27→20:57)
[2019-06-04] MEDS: MULTIVITAMIN TAB PO SCH (12:27)
[2019-06-04] MEDS: KETOROLAC TROMETHAMINE 15 MG/ML VIAL IV SCH ×3 (12:28→23:37)
[2019-06-04] MEDS: ACETAMINOPHEN 500 MG TAB PO SCH ×2 (13:36→22:23)
[2019-06-04] MEDS: CEFAZOLIN 2000MG 2,000 MG/15 ML SYR IV SCH ×2 (14:14→22:25)
[2019-06-04] MEDS ORDERED: TRANEXAMIC ACID / 0.7% NACL 1,000 MG/100 ML BAG IV SCH (14:56)
[2019-06-04] MEDS: CHECK SCOPOLAMINE PATCH PLACEMENT SCH ×2 (17:10→23:37)
[2019-06-04] MEDS: DOCUSATE SODIUM 100 MG CAP PO SCH (20:57)
[2019-06-04] MEDS ORDERED: NON-FORMULARY MEDICATION (Coenzyme Q10 [Coq-10] 100 MG) PO SCH (21:00)
[2019-06-04] MEDS ORDERED: SENNA 8.6 MG TAB PO SCH (21:00)
[2019-06-04] MEDS ORDERED: ROSUVASTATIN CALCIUM 10 MG TAB PO SCH (21:00)
[2019-06-05 03:24] VITALS: O2SAT 99
[2019-06-05 05:12] LABS: Hemoglobin 9.2 g/dL (12.0-16.0); Immature Granulocytes # (auto) 0.01 K/uL (0.00-0.02); Immature Granulocytes % (auto) 0.2 %; Lymphocytes # (auto) 0.82 K/uL (1.2-3.4); Lymphocytes % (auto) 12.9 %; Mean Corpuscular Hemoglobin 29.2 pg (25-34); Mean Corpuscular Hgb Conc 34.1 g/dL (32-36); Mean Corpuscular Volume 85.7 fL (80-100); Mean Platelet Volume 9.9 fL (7.4-10.4); Monocytes # (auto) 0.47 K/uL (0.11-0.59); Monocytes % (auto) 7.4 %; Neutrophils # (auto) 5.06 K/uL (1.4-6.5); Neutrophils % (auto) 79.5 %; Platelet Count 179 K/uL (130-400); RDW Coefficient of Variation 14.1 % (11.5-14.5); RDW Standard Deviation 44.1 fL (36.4-46.3); Red Blood Count 3.15 M/uL (4.2-5.4); White Blood Count 6.36 K/uL (4.8-10.8)
[2019-06-05 05:37] LABS: BUN Creatinine Ratio 16.5 (10-20); Calcium 8.7 mg/dl (8.5-10.1); Creatinine Clr Calc Pharmacy 57.8 ml/min; Est GFR (African American) 92.7
[2019-06-05] MEDS: ACETAMINOPHEN 500 MG TAB PO SCH (05:55)
[2019-06-05] MEDS: KETOROLAC TROMETHAMINE 15 MG/ML VIAL IV SCH (05:55)
[2019-06-05] MEDS ORDERED: dexAMETHasone 4 MG TAB PO SCH (08:00)
[2019-06-05] MEDS: MULTIVITAMIN TAB PO SCH (08:27)
[2019-06-05] MEDS: LOSARTAN/HCTZ 50/12.5MG TAB PO SCH (08:27)
[2019-06-05] MEDS: CALCIUM 600MG + VIT D 400 IU TAB PO SCH (08:27)
[2019-06-05] MEDS: OMEGA-3 (PURIFIED FISH OIL) 1 GM CAP PO SCH (08:27)
[2019-06-05] MEDS: DOCUSATE SODIUM 100 MG CAP PO SCH (08:27)
[2019-06-05] MEDS: ASPIRIN 81 MG ECTAB PO SCH (08:27)
[2019-06-05] MEDS: CHECK SCOPOLAMINE PATCH PLACEMENT SCH (08:28)
--- NOTE | 2019-06-05 08:57 | Anesthesiology Progress Note ---
Date of Service June 05, 2019 JULIA patient, patient was in bathroom. Anesthesia Post Procedure Vital Signs Vital Signs: Temp Pulse Pulse Pulse Resp BP Pulse Ox 06/05/19 07:31 36.5 C 67 18 116/71 99 06/05/19 03:24 36.8 C 70 16 126/70 99 06/04/19 23:15 36.8 C 77 16 120/63 97 06/04/19 19:41 36.8 C 86 16 107/62 98 06/04/19 15:02 36.7 C 88 16 108/61 99 06/04/19 13:00 36.6 C 89 16 121/66 100 06/04/19 12:07 89 16 136/78 100 06/04/19 11:00 36.4 C L 80 16 130/77 100 06/04/19 10:29 36.4 C L 93 H 16 121/74 100 06/04/19 09:40 75 16 127/60 100 06/04/19 09:25 78 14 134/60 100 06/04/19 09:15 36.3 C L 92 H 17 132/71 100 06/04/19 09:05 80 19 142/66 H 100
[2019-06-05] MEDS ORDERED: LETROZOLE 2.5 MG TAB PO SCH (09:00)
--- NOTE | 2019-06-05 10:46 | Orthopedic Progress Note ---
Date of Service June 05, 2019 Assessment & Plan (1) S/P total hip arthroplasty: Total hip precautions review WBAT with walker assistance PT/OT Ice with EZ wrap Abduction pillow use x 6 wks DVT prophy with TEDs and Aspirin Pain control with PO meds keep dressing in place until 2 wk f/u Discharge home today with home health services F/u at [facility] as scheduled in 2 wks With questions call Admission and Anticipated Discharge Date Admission Date: June 04, 2019 Subjective This 74 yo F is day 1 s/p Right total hip arthroplasty. She is doing very well and has completed PT and OT this AM. She states that she is ready to go home and has home health services doing her PT starting tomorrow. At this time she denies pain, fever, chills, sweats, nausea, vomiting, CP, SOB, lethargy or numbness/tingling in the Right LE. Review of Systems Review of Systems: All systems reviewed & are unremarkable except as noted in Subjective Physical Exam Physical Exam: Right Hip: dressing clean, dry and intact. Able to depict light sensation to touch circumferentially around dressing. Able to perform SLRT. Can actively dorsi/plantar flex foot. Quad strength 3/5. NV intact. No pain with light passive internal/external hip rotation. Knee ROM from 0-90 easily. Calf soft and supple. Periph pulses easily palpable. Cap refill < 2 seconds. Results & Data ([facility]) Vital Signs (Past 12 Hours) Vital Signs Temp Pulse Resp BP Pulse Ox 06/05/19 07:31 36.5 C 67 18 116/71 99 06/05/19 03:24 36.8 C 70 16 126/70 99 06/04/19 23:15 36.8 C 77 16 120/63 97 Laboratory Results 06/05/19 06/05/19 Range/Units 04:50 04:50 WBC 6.36 (4.8-10.8) K/uL RBC 3.15 L (4.2-5.4) M/uL Hgb 9.2 L (12.0-16.0) g/dL Hct 27.0 L (37-47) % MCV 85.7 (80-100) fL MCH 29.2 (25-34) pg MCHC 34.1 (32-36) g/dL RDW Std Deviation 44.1 (36.4-46.3) fL RDW Coeff of Scott 14.1 (11.5-14.5) % Plt Count 179 (130-400) K/uL MPV 9.9 (7.4-10.4) fL Immature Gran % (Auto) 0.2 % Neut % (Auto) 79.5 % Lymph % (Auto) 12.9 % [place] % (Auto) 7.4 % Eos % (Auto) 0.0 % Baso % (Auto) 0.0 % Immature Gran # (Auto) 0.01 (0.00-0.02) K/uL Neut # (Auto) 5.06 (1.4-6.5) K/uL Lymph # (Auto) 0.82 L (1.2-3.4) K/uL [place] # (Auto) 0.47 (0.11-0.59) K/uL Eos # (Auto) 0.00 (0-0.5) K/uL Baso # (Auto) 0.00 (0-0.2) K/uL Sodium 131 L (136-145) mmol/L Potassium 4.0 (3.5-5.1) mmol/L Chloride 98 (98-107) mmol/L Carbon Dioxide 29 (21-32) mmol/L Anion Gap 4.0 (3-11) BUN 12 (7-18) mg/dl Creatinine 0.73 (0.6-1.2) mg/dl Est Cr Clr Drug Dosing 57.8 ml/min Est GFR ( Amer) 92.7 Est GFR (Non-Af Amer) 80.0 BUN/Creatinine Ratio 16.5 (10-20) Glucose 123 H (70-99) mg/dl Calcium 8.7 (8.5-10.1) mg/dl
--- NOTE | 2019-06-05 10:51 | Discharge Summary ---
Date of Service June 05, 2019 Admission HPI Per Admitting Provider Chief Complaint: Right Hip Pain History of Present Illness: This 74-year-old female presents to the clinic today for preoperative history and physical. This patient was initially scheduled to undergo a Right total hip arthroplasty on 09/12/18 but due to a diagnosis of breast cancer that required surgery, chemotherapy and radiation therapy was delayed until all treatment was complete and clearance from her oncologist. The patient has a longstanding history of significant right hip pain and feels it has become increasingly worse over the past 9 months causing her to limp with ambulation. The patient has failed conservative measurements including physical therapy and use of nonsteroidal agents; Tylenol, turmeric, Voltaren gel. She states that this pain is preventing her from doing her normal daily activities, which include walking, hiking, and gardening. Past Medical History: Problems: Preop examination Trochanteric bursitis History of squamous cell carcinoma Neuropathy Polyneuropathy Degenerative joint disease (DJD) of hip IT band syndrome Biswas's cyst Degenerative arthritis of knee Knee pain, left Prediabetic, prediabetes HTN - Hypertension GERD Hyperlipidemia Allergic rhinitis due to allergen Torn meniscus Family history of cardiovascular disease HEADACHE Hip pain, left Hand pain, left Shoulder joint pain Seasonal allergies Osteoarthrosis of the carpometacarpal joint of the thumb Impingement syndrome of shoulder region H/O: injury Strain of rotator cuff capsule Cholesterol Index finger Family history of OA - Osteoarthritis of joint of finger Fatigue - symptom Breast cancer, left Procedure History Procedure Procedure Date Comments Mohs surgery Insertion of A-port right subclavian vein 11/20/2018 Lumpectomy of left breast 09/26/2018 Surgery 09/26/2018 - left breast partial masectomy Diagnostic mammogram 08/27/2018 - New biopsy clips status post left breast and axillary biopsies. Path report pending Biopsy of breast 08/27/2018 - The differential is taht of invasive lobular cancer versus invasive ductal cancer Ultrasound Guided Biopsy Left Breast 08/27/2018 - Impression:Ultrasound-guided core needle biopsy of the left 11:00 breast mass, with clip placement. The patient will receive pathology results from her referring provider. Unilateral Left Digital Diagnostic Mammogram Tomosynthesis and targeted left ul trasound 08/26/2018 - Impression: ACR BI RADS CATEGORY 4: SUSPICOUS ULTRASOUND.1. There is a persistent irregular and spiculated mass with associated clustered calcification in the 11:00 to 12:00 posterior left breast seen mammographically and on ultrasound. The largest mammographic mreasurement is 15 mm, the largest ultrasound measurement is 11.5 mm, slight differences are felt to be due to the ill-defined nature of this lesion. Further characterization with left breast ultrasound-guided core biopsy is recommended. 2. Left axillary lymph node sampling is also recommended with fine-needle aspiration and possible core biopsy, of the most prominent 33.6 mm lymph node identified in the left axilla. Mammogram 08/21/2018 - acr bi-rads category 0 : incomplete evaluation: need additional imaging evaluation left breast focal asymmetry with possible associated architectural distortion, for which additional imagine evaluation is recommended Mammogram - screening 08/19/2017 - WNL - 1 yr Epidural steroid injection 08/08/2017 - osmin Ch[place]m - lumbar MRI of lumbar spine 05/08/2017 - MULTI MIDLEVEL SPONDYLITIC CHANGES. No evidence of significant spinal or foraminal stenosis X-ray of right ankle 05/02/2017 - no acute osseous injury of right ankle Lower leg X-ray-right 05/02/2017 - no acute osseous injur to right lower leg EMG - Electromyography 02/19/2017 - sensory-motor axonal polyneuropathy Femoral neck DEXA scan 01/29/2017 - Z score 1.3 - followup January 2019 Mammogram 08/29/2016 - amended biopsy left breastnegative for in situ & invasive carcinomarepaet 1 yr unilateral left mammogram 08/22/2016 - increasing cluster of calcifications in a linear distrubution in the left upper outer quadrant. The calcifications are indeterminate and stereotactic biopsy is recommended for further evaluation - Dr. Flores ordered Mammogram - screening 08/15/2016 - benign breast tissue with microcalcifications, Negative for in Situ and inv asive carcinoma - stereotactic guided biopsy - there are bilateral scattered and grouped benign rim calcifications in the breasts. However, there are possible new clusters of microcalcifications in the 12:00 and upper outer middle one third of the left breast, for which additional spot magnification views are recommended. Skeletal X-ray of pelvis and hip 08/09/2016 - Moderate to severe left hip osteoarthritis. No fracture or dilocation Biswas's cyst 07/16/2016 - aspiratio Mammogram - screening 08/16/2015 - WNL - 1yr X-ray of left knee 07/19/2015 - exophytic bony exostosis projecting from the proximal fibula. Study of knee is otherwise negative. Cataract extraction 03/02/2015 - senile cataract, left eye Cataract extraction 02/16/2015 - senilr nuclear right eye Mammogram abnormal 01/27/2015 - lenghty report - repeat 6 months PAP test date 10/01/2014 Mammogram - screening 07/27/2014 - cluster calcifications - recheck 6 months Mammogram 01/27/2014 - New clustered microcalcifications in left breast benign. Short interval f/u recommended. Abnormal mammogram 01/11/2014 - need compression views of left breast Mammogram 01/05/2013 - No evidence of malignancy Right shoulder /SAD/biceps Tenotomy 10/21/2012 EKG-preop 09/29/2012 R shoulder x-ray-PSSM 07/21/2012 DEXA-Normal 10/16/2010 - Repeat in 5 yearas rec : OCT 2015 COLONOSCOPY 03/18/2008 Cardiac Cath--WNL 03/18/2004 Dermabrasion to face 03/18/2002 Stress ECHO-False Positive 05/16/2001 FNA RIGHT BREAST 03/18/2001 Fusion Fifth Metatarsal RIGHT foot 03/18/1997 Right foot surgery 1996 BRANNON-BSO 03/18/1993 Dermabrasion to face 03/18/1991 RIGHT Axillary growth removed-BENIGN 03/18/1952 Allergies and Sensitivities: Keflex(vaginitis) Allergy Not found in Search(nasal congestion) lisinopril(COUGH) Current Home Meds: (Last Updated 05/19 07:58) vitamin D (Calcium 600+D) 1 tab PO bid; glucosamine (glucosamine-chondroitin 600 mg-750 mg oral tablet) PO BID; topical (diclofenac 1% topical gel)apply 1 APPLICATION TOPICALLY four times a day if needed - NOT TO EXCEED 16 GRAMS/DAY/SINGLE JOINT OF LOWER EXTREMITIES; (Pepcid 20 mg oral tablet) 10 mg PO Daily avoid eating and drinking for 10 minutes after each dose & use prn; losartan (hydroCHLOROthiazide-losartan 12.5 mg-50 mg oral tablet) take 1 tablet by mouth once daily 90 DAY SUPPLY PER INSURANCE PLEASE letrozole 2.5 mg PO Daily; topical (mometasone 0.1% topical cream) 1 appl topical bid apply to forehead dermatitis until clear and then as needed multivitamin(Aleve) prn; polyunsaturated fatty acids (omega-3 polyunsaturated fatty acids 1100 mg oral delayed release capsule)(pantoprazole 40 mg oral delayed release tablet) take 1 tablet by mouth once daily(Crestor 10 mg oral tablet) 10 mg PO qhs; (Coenzyme Q10) 100 mg PO Daily Date 05/19 07:58 Temp 36.6 Pulse 84 BP 126/70 RR 24 SpO2 97% Wt(kg) 36.6 DIAGNOSIS: Right hip osteoarthritis. PROCEDURE: Right total hip arthroplasty. PLAN: The patient is scheduled to undergo this procedure with Dr. Gurpreet Wu as an inpatient at [facility] on June 04, 2019. Risks and complications of the procedure such as infection, bleeding, pain, scarring, nerve and blood vessel damage, weakness, wound problems, incomplete relief of symptoms, hardware failure, hardware loosening, wire fracture, tendon or ligament injury, dislocation, leg length inequality, localized embolism, heart attack, stroke, and were explained to the patient at her visit yesterday by Dr. Wu. Informed consent from the procedure was obtained. We have obtained preoperative medical clearance from the patient's primary care provider, Dr. Luis Farrell. We have up-to-date labs including CBC with differential, complete metabolic panel, EKG, hemoglobin A1c, and a chest x-ray. We will need a new urinalysis, urine culture, PT/INR, blood type and screen and a nasal culture for MRSA. Patient has her Pre Anesthesia Testing appointment next Saturday at the hospital and will obtain the necessary testing at that time. The patient was scheduled for her 2-week postoperative followup visit with myself on 06/19/19 @ 2 PM. The patient was advised she will be provided with prescriptions for narcotic pain medication upon discharge from the hospital. PDMP was checked. No red flags were raised from prescribing this medication. I also advised her that we will prescribe her with some diclofenac sodium and instructed her about the use of a baby aspirin twice daily and Extra Strength Tylenol postoperatively for DVT prophylaxis and pain control respectively. The patient states that she already has a handicap plackard for her vehicle that is valid until the end of August. The patient has a walker and hip kit that she purchased last August. The patient was given some paperwork in regard to discharge planning. She has attending the lectures in offered by [facility] in regard to joint replacement therapy and has paperwork that instructed her about antibiotic use prior to any dental procedures postoperatively. I provided the patient with a booklet for hip replacement surgery, advised her to read thoroughly, showed her the exercises that she would do for 2 weeks postoperatively. She states she will most likely use [facility] to come into her home to help her do these exercises prior to her 2- week followup visit. The patient verbalized understanding of all information provided during today's visit, thanks us for her care, and states if she has add itional questions or concerns that should arise prior to her surgery date, she will contact the clinic accordingly. Admission Exam Per Admitting Provider Physical Exam: Skin: Patient's skin is normal in appearance. No open skin lesions or discharge. Eyes: Pupils are equal reactive to light and accommodating. Extraocular movements are intact. Throat: Posterior pharynx clear with absence of edema, erythema, or exudate. Cardiovascular Exam: Patient has a regular rate and rhythm with no murmurs or gallops appreciated. Lungs: Auscultation of lung myers reveals clear breath sounds throughout with no wheezing, rales, or rhonchi. Abdomen is not obese, nondistended, nontender with normoactive bowel sounds. Extremities: Right hip, the patient has negative Logroll test, positive straight leg raise test, positive Stinchfield test. Flexion to 130 degrees. She has no pain with light internal and external rota tion. SHIRLEY test is 3 fists. Quad strength is 3.5 to 5/5. There is tenderness to palpation over the posterior aspect of the hip. Pain when patient performs straight leg raise test and Stinchfield test is referred to the anterior groin. The patient is neurovascularly intact in the right lower extremity. External rotation is to 30 degrees and internal rotation to 10 degrees. The patient's gait is antalgic. Neurological Exam: Cranial nerves 2 through 12 are intact. No motor or sensory deficits. Psychological/General Exam: The patient is alert and oriented x3 with proper grooming and hygiene. Principal Diagnosis Right hip osteoarthritis Discharge Exam Right Hip: dressing clean, dry and intact. Able to depict light sensation to touch circumferentially around dressing. Able to perform SLRT. Can actively dorsi/plantar flex foot. Quad strength 3/5. NV intact. No pain with light passive internal/external hip rotation. Knee ROM from 0-90 easily. Calf soft and supple. Periph pulses easily palpable. Cap refill < 2 seconds. Discharge Data Allergies Allergy/AdvReac Type Severity Reaction Status Date / Time adhesive tape AdvReac Mild SKIN Verified 06/04/19 05:43 IRRITATION AT TIMES-SOME TAPES cephalexin AdvReac Mild VAGINITIS Verified 06/04/19 06:52 lisinopril AdvReac Mild Cough Verified 06/04/19 06:52 Consultations 06/05/19 08:00 Consult Case Management - Discharge Planning Routine Procedures Performed Operation Date: 06/04/19 07:00 Actual Procedures p Right Total Hip Arthroplasty(Right) - Gurpreet Wu MD Hospital Course (1) S/P total hip arthroplasty: Patient did very well overnight and with PT/OT this AM. She is anxious to be discharged home and will have inhome PT for the next few weeks. We discussed post op pain control with meds prescribed and talked about DVT prophylaxis with the use of TEDs and aspirin. Total hip precautions review WBAT with walker assistance PT/OT Ice with EZ wrap Abduction pillow use x 6 wks DVT prophy with TEDs and Aspirin Pain control with PO meds keep dressing in place until 2 wk f/u Discharge home today with home health services F/u at [facility] as scheduled in 2 wks With questions call Total Time Total Time Spent Total Time Spent (In Minutes): 25 mins Total Time Includes: Examination of the Patient, Discharge Planning, Medication Reconciliation and Communication With Other Providers Discharge Plan Discharge Items Patient Disposition: Home - Home Health Services Reason For Visit: Right Hip Arthritis Discharge Diagnosis: Right hip osteoarthritis Activity: As commented below Lifting: None Bathing: Keep incision dry Bathing Comment: May shower tomorrow Sexual Activity: Wait until after follow-up appointment Exercise/Sports: Wait until after follow-up appointment Driving/Machine Use: No driving until cleared by orthropedic specialist Weightbearing: Right weightbearing Weightbearing Comment: as tolerated with walker assistance Non-emergency contact: Primary Care Provider and Surgeon Call non-emergency contact if: you have any medication questions, your temperature is above 101.5 and your wound has increased drainage Follow-up/Referrals: Luis Farrell [Primary Care Provider] - Diet: Regular Addtl Attending Provider Instructions: Post-operative Instructions Dear Patient and Family/Friends, Before you are discharged from the hospital, it is important to know what to expect when you get home after surgery. To that end, we have created this sheet of discharge instructions which covers many commonly asked questions. Make sure you go through this sheet in its entirety with your nurse before you are discharged. Please note that we will go over the specifics of your surgery and recovery when you return for your first post-operative visit. Sincerely, Dr. Wu Medications 1. Oxycodone 5 mg: take 1-2 tabs by mouth every 4-6 hours as needed for pain. A prescription for 30 tabs will be sent to your pharmacy. 2. Diclofenac Sodium 75 mg: take 1 tab twice daily for 30 days post operatively. A prescription for 30 tabs with 1 refill will be sent to your pharmacy. Do not take any Aleve or Ibuprofen while using this medication. 3. Aspirin 81 mg: Take 1 tab twice daily for 30 days post operatively for blood clot prevention. Please purchase this medication. 4. Extra Strength Tylenol 500mg: Take 2 tabs every 6-8 hours for 30 days post operatively for pain relief. Please purchase this medication. Pain Expect to be in a fair amount of pain after surgery. Remember, our goal is not to eliminate your pain, but to make it tolerable. It is a good idea to stay ahead of your pain by taking the medications you were prescribed once you get home. Typically, the pain starts improving 3-7 days after surgery. You should start weaning off the narcotic pain medication (oxycodone, hydrocodone, hydromorphone, morphine) as soon as your pain improves. Please call our office if your pain is not adequately controlled. Ice Ice your operative site at least 5 times a day for 15-30 minutes at a time. Make sure you have a thin cloth between the ice or cooling unit and your skin to p revent rachel bite. This is especially important if you received a nerve block. Continue icing your operative site for the first 5-7 days after surgery, then as needed. Diet/Nausea/Vomiting Start by drinking clear liquids and eating crackers. If you can tolerate this, then you may resume your normal diet. If you feel nauseated or vomit, take Zofran/ondansetron (if prescribed). Please call our office if you have intractable nausea or vomiting, or, if after hours, you may go to the Emergency Room for help. Constipation Constipation is a common side effect of narcotic pain medication. If you have not had a bowel movement within 2 days after surgery, we recommend purchasing an over the counter laxative such as Milk of Magnesia, Dulcolax, or Miralax from a local pharmacy, and taking it as instructed. Call our clinic if any questions. Nerve block The anesthesia team sometimes places a nerve block to help with post-operative pain control. This results in significant numbness and inability to move the extremity. The nerve block usually wears off in 8-12 hours, but sometimes can last up to 24 hours. Please call our office if you are still unable to move your extremity after 24 hours, unless you received a pain pump to take home. Nerve blocks typically wear off quickly, so start taking pain medication as soon as you start feeling soreness near your surgical site. Weight bearing and Range of Motion. Do not bear any weight through your operative extremity immediately after surgery. If you had upper extremity surgery, do not lift anything with that arm. If you are in a knee brace, keep it locked in place until your follow-up. We will discuss your weight bearing, range of motion, and lifting restrictions in detail at your first post-operative appointment. Continuous Passive Motion (CPM) Machine If you were prescribed a CPM machine, it will start after your first post- operative appointment, at which time we will give you instructions on the range of motion settings and duration of treatment Physical therapy You will be given a prescription for physical therapy or occupational therapy at your first post-operative appointment. Typically, patients start therapy within 1 week of surgery Wound care and showering We will inspect your wound at your first post-operative visit, and may do a dressing change at that time. Most patients will be in a water-proof dressing that is removed 14 days after surgery. It is normal to see some dried blood on the dressing. Do not remove your dressing, paper strips or sutures yourself unless you are given permission. Showering is allowed the day after surgery. Do not scrub or remove any dressings. The wound should not be submerged underwater (i.e. in a bathtub or pool) until 4 weeks after surgery MARCO stockings If you were given white stockings, these are to be worn at all times except to shower (on both legs) for the first 2 weeks after surgery. Driving You may not drive while taking narcotic pain medication or while in a cast, splint, sling or brace. You, the patient, need to make the final determination about when you are safe to drive, however, the earliest you may consider driving after surgery is below: Hand/Wrist/Elbow Surgery: 3 days Shoulder Surgery: 2 weeks Hip,/Knee/Ankle Surgery: 4 weeks Fracture repair: 6 weeks Return to Work Your return to work depends on what surgery was done and what type of work you do. Please bring any paperwork your employer needs completed to your first post-operative visit. Also, bring a description of your job duties, as this helps us to understand what risks you may face at work. Travel Avoid long distance travel (greater than 1 hour) in airplanes and cars for the first 6 weeks after surgery. If you must travel, you need to have a Doppler ultrasound done before you travel to rule out a blood clot in your legs. Follow-up You should have a follow-up appointment already scheduled 1-2 days after surgery. If not, please contact our office to make this appointment before you leave the hospital. When to call the office It is normal to have swelling and bruising in the limb that was operated on. This will improve with time. It is also normal to have fevers for the first 2 days after surgery. Reasons you should call your doctor include: Uncontrolled pain; Nausea, vomiting, or constipation that does not improve with medication; Fevers over 101.5, chills, sweats; Drainage or bleeding from the wound; Foul odor; Spreading areas of redness; Any other concerns Pending Studies at Discharge: No Stand-Alone Forms: My [facility] Medications and DC Order Prescriptions: New oxycodone 5 mg tablet 5 mg PO Q6H Qty: 30 RF: 0 diclofenac sodium 75 mg tablet,delayed release (DR/EC) 75 mg PO BID Qty: 60 RF: 1 Continued fluocinonide 0.05 % cream 1 applic TOP QID PRN (Reason: itching) Qty: 60 RF: 1 acetaminophen [Tylenol Extra Strength] 500 mg Tablet 1,000 mg PO BID PRN (Reason: Pain) RF: 0 omega-3 fatty acids [Fish Oil Concentrate] 1,000 mg Capsule 1,000 mg PO QAM RF: 0 losartan-hydrochlorothiazide 50-12.5 mg Tablet 1 tab PO QAM RF: 0 coenzyme Q10 [CoQ-10] 100 mg Capsule 100 mg PO QPM RF: 0 rosuvastatin 10 mg Tablet 10 mg PO QPM RF: 0 Centrum Silver 0.4-300-250 mg-mcg-mcg Tablet 1 tab PO QAM RF: 0 Glucosamine-Chondr (boswellia) 543-786-74-1-3 mg Tablet 1 tab PO BID RF: 0 pantoprazole [Protonix] 40 mg tablet,delayed release (DR/EC) 40 mg PO PRN PRN (Reason: GERD) RF: 0 calcium carbonate-vitamin D3 [Calcium 600 + D(3)] 600 mg(1,500mg) -200 unit Tablet 1 tab PO BID RF: 0 letrozole 2.5 mg Tablet 2.5 mg PO QAM RF: 0 Discontinued naproxen sodium [Aleve] 220 mg Capsule 220 mg PO BID PRN (Reason: Pain) RF: 0 Admission Data Admit Date/Time: 06/04/19 08:54 Attending Provider: Gurpreet Wu Admit Provider: Gurpreet Wu Primary Care Provider: Luis Farrell Other Interventions: Discharge Summary Assessment (RN) Last Done: 06/05/19 10:34
[2019-06-05 11:45] VITALS: BP 125/69; PULSE 81; TEMP 97.9
== END 2019-06-05 12:52 | disposition home health service (06) | DRG 470 ==
LOC: ASU 04:52 → 3E 08:54

== ENCOUNTER 2019-12-31 06:52 | Observation (INO) ==
--- NOTE | 2019-12-08 15:16 | PAT Medication Instructions ---
Medication Instructions Date of Service December 08, 2019 Home Medications Medication Instructions Recorded fluocinonide 0.05 % topical cream 1 applic TOP QID PRN #60 gm 03/02/19 Centrum Silver 1 tab PO QAM Glucosamine-Chondr (boswellia) 1 tab PO BID coenzyme Q10 [CoQ-10] 100 mg PO QPM losartan-hydrochlorothiazide 1 tab PO QAM omega-3 fatty acids [Fish Oil Concentrate] 1,000 mg PO QAM rosuvastatin 10 mg PO QPM acetaminophen [Tylenol Extra Strength] 1,000 mg PO BID PRN pantoprazole 40 mg tablet,delayed release 40 mg PO PRN fluocinonide 0.05 % topical cream 1 applic TOP QID PRN calcium carbonate-vitamin D3 [Calcium 600 + D(3)] 1 tab PO BID anastrozole 1 mg tablet 1 mg PO QAM diclofenac sodium 75 mg PO BID PRN Continue as directed anastrozole 1 mg tablet 1 mg PO QAM (unless surgeon directs otherwise) ASK your surgeon for instructions diclofenac sodium 75 mg PO BID PRN STOP taking 2 weeks before surgery Glucosamine-Chondr (boswellia) 1 tab PO BID coenzyme Q10 [CoQ-10] 100 mg PO QPM omega-3 fatty acids [Fish Oil Concentrate] 1,000 mg PO QAM STOP taking 24 hours before surgery fluocinonide 0.05 % topical cream 1 applic TOP QID PRN DO NOT take the morning of surgery Centrum Silver 1 tab PO QAM losartan-hydrochlorothiazide 1 tab PO QAM calcium carbonate-vitamin D3 [Calcium 600 + D(3)] 1 tab PO BID Take morning of surgery With a small sip of water, OTHERWISE NOTHING TO EAT OR DRINK AFTER MIDNIGHT: acetaminophen [Tylenol Extra Strength] 1,000 mg PO BID PRN (okay to take up to 4 hours prior to surgery if needed) pantoprazole 40 mg tablet,delayed release 40 mg PO PRN (if needed) Take evening before surgery rosuvastatin 10 mg PO QPM acetaminophen [Tylenol Extra Strength] 1,000 mg PO BID PRN (if needed) pantoprazole 40 mg tablet,delayed release 40 mg PO PRN (if needed) calcium carbonate-vitamin D3 [Calcium 600 + D(3)] 1 tab PO BID Other Notes If you have any questions please call us at [phone] or [phone] or [phone] or [phone]
--- NOTE | 2019-12-09 11:08 | Anesthesiology Consultation ---
Date of Service December 09, 2019 Assessment & Plan (1) Encounter for pre-operative examination: COVID Status: As of 12/08 assessment, patient denies travel to endemic area, known exposure/sick contacts, or symptoms of COVID19. Patient instructed that they and their household members must follow strict social distancing guidelines, wear a mask in public and avoid travel for 14 days prior to surgery. Preoperative COVID19 testing to be completed prior to surgery per surgeon's a rrangements. Patient made aware to self-isolate as much as possible between COVID testing and surgery. S/P R VAHE 06/04/2019 -- SAB x 1 attempt; pt very happy with surgery and anesthetic. Chart Review Chart Review: Acceptable Risk for Surgery (pending surgeon-ordered PCP clearance done 11/16) and Patient seen in Pre Admission Testing Teaching & Discussion Instructed NPO after midnight before surgery, except medications with 15 cc of water. Medication instructions provided according to the PAT guidelines. History Surgery Operation Date: 12/31/19 07:15 Proposed Procedures p Left Total Hip Arthroplasty - Gurpreet Wu MD Height/Weight Height: 5 ft 6.5 in Weight: 66.8 kg Allergies Allergy/AdvReac Type Severity Reaction Status Date / Time adhesive tape AdvReac Mild SKIN Verified 12/08/19 14:08 IRRITATION AT TIMES-SOME TAPES cephalexin AdvReac Mild VAGINITIS Verified 12/08/19 14:08 lisinopril AdvReac Mild Cough Verified 12/08/19 14:08 Medications Home Medications Medication Instructions Recorded Confirmed Last Taken Centrum Silver 1 tab PO QAM 08/15/18 12/08/19 06/03/19 07:00 Glucosamine-Chondr (boswellia) 1 tab PO BID 08/15/18 12/08/19 05/21/19 coenzyme Q10 [CoQ-10] 100 mg PO QPM 08/15/18 12/08/19 05/21/19 losartan-hydrochlorothiazide 1 tab PO QAM 08/15/18 12/08/19 06/03/19 07:00 omega-3 fatty acids [Fish Oil 1,000 mg PO QAM 08/15/18 12/08/19 05/21/19 Concentrate] rosuvastatin 10 mg PO QPM 08/15/18 12/08/19 06/03/19 19:00 acetaminophen [Tylenol Extra 1,000 mg PO BID PRN 11/11/18 12/08/19 06/03/19 21:00 Strength] pantoprazole 40 mg tablet,delayed 40 mg PO PRN PRN tab 12/31/18 12/08/19 06/04/19 04:00 release fluocinonide 0.05 % topical cream 1 applic TOP QID PRN #60 gm 03/02/19 12/08/19 Unknown calcium carbonate-vitamin D3 1 tab PO BID 05/25/19 12/08/19 06/03/19 19:00 [Calcium 600 + D(3)] anastrozole 1 mg tablet 1 mg PO QAM 08/06/19 12/08/19 Unknown diclofenac sodium 75 mg PO BID PRN 12/08/19 12/08/19 Unknown Past Medical History Medical History GERD (gastroesophageal reflux disease) History of breast cancer (~2018) L BREAST 2019 [place] Finished chemo 12/2018, finished radiation 02/2019. History of neuropathy Legs. Resolved with steroid injections by pain mgmt. History of palpitations 2003 - cardiac workup included stress test, which was + for reversible ischemia -- sent to [place] for cath (no stents). Per patient cath was clear. No issues since, does not follow with cardio. Hx of migraines Hx of rosacea Hx of skin cancer, basal cell Hx of squamous cell carcinoma of skin Hyperlipidemia Hypertension Osteoarthritis Port-A-Cath in place (11/20/18) Insertion of A-Port Right Subclavian Vein Dr. Payne 11-20-18 Seasonal allergies Exercise / Class Metabolic Activity II 4-5 Yardwork/Stairs/Walk up hill (Denies CP or SOB with 1 FOS) Past Family History Family History Father , age 80 stroke Family history of diabetes mellitus Brother Age: 80 Family history of diabetes mellitus Hypertension Heart disease Grandmother (Paternal) , in her seventies perhaps cause unknown Family history of diabetes mellitus Sister Age: 60 Hypertension Breast cancer Mother , of heart disease Heart disease Past Surgical History Surgical History H/O excision of mass SQUAMOUS CELL SKIN BETWEEN BREASTS H/O partial mastectomy L SIDE 09/2018 WITH NODE [facility] History of cardiac cath 2004 [facility] [place] DUE TO ABNORMAL STRESS TEST-NO STENTS, PT REPORTS NO CAD. History of colonoscopy History of Mohs micrographic surgery for skin cancer nose History of right hip replacement Hx of bilateral cataract extraction Hx of foot surgery right Hx of rotator cuff surgery right Hx of total hysterectomy Status post epidural steroid injection done 06/2017 and 07/2017 Past Anesthesia History No Hx of Anesthesia Complications and No Family Hx of Anesthesia Complications s/p R VAHE 06/04/2019 -- SAB x 1, pt very happy with surgery and anesthetic. History of PONV No Hx of PONV and No Hx of Motion Sickness Social History Smoking Status: Never smoker Do You Dip or Chew Tobacco: No Hx Alcohol Use: Yes Alcohol type: beer and wine alcohol intake frequency: 0-2 drinks per day Hx Substance Use: No substance use type: does not use Review of Systems Pt denies any recent chest pain, shortness of breath, palpitations, cough, fever, URI, or uncontrolled acid reflux. Physical Exam Vital Signs BP: 169/70 (pt reports it was 130s at surgeon's office) P: 74bpm SPO2: 99% RA T: 98.7 F R: 12 ENMT Mouth: + dentures (partial upper); no chipped teeth and no loose teeth Thyromental Distance: > or= 3.5 Finger Breadths Mallampati Class: I Neck normal visual inspection; neck extension not limited Respiratory normal respiratory effort Auscultation: lungs clear to auscultation bilaterally Cardiovascular Rate/Rhythm: regular rate and regular rhythm Heart Sounds: no murmur Extremities: no edema Testing Laboratory Results 12/09/19 11:22 12/09/19 11:22 PT 10.5 Seconds (9.0-12.0) 12/09/19 11:22 INR 1.0 (0.9-1.1) 12/09/19 11:22 Urine Color Yellow 12/09/19 11:22 Urine Appearance Clear (Clear) 12/09/19 11:22 Urine pH 7.5 (4.5-7.5) 12/09/19 11:22 Ur Specific [place] 1.010 (1.000-1.030) 12/09/19 11:22 Urine Protein Negative (Negative) 12/09/19 11:22 Urine Glucose (UA) Negative (Negative) 12/09/19 11:22 Urine Ketones Negative (Negative) 12/09/19 11:22 Urine Nitrite Negative (Negative) 12/09/19 11:22 Ur Leukocyte Esterase Negative (Negative) 12/09/19 11:22 Blood Type O Positive 12/09/19 11:22 Antibody Screen NEGATIVE 12/09/19 11:22 A1C 5.8% 10/26/19 Electrocardiogram Date: 12/09/19 Findings: + NSR @ (69bpm) and + no change from (08/2018) *unconfirmed
[2019-12-09 12:53] LABS: Basophils # (auto) 0.02 K/uL (0-0.2); Basophils % (auto) 0.4 %; Eosinophils # (auto) 0.05 K/uL (0-0.5); Eosinophils % (auto) 0.9 %; Hematocrit (blood only) 38.7 % (37-47); Immature Granulocytes # (auto) 0.01 K/uL (0.00-0.02); Immature Granulocytes % (auto) 0.2 %; Lymphocytes # (auto) 1.06 K/uL (1.2-3.4); Lymphocytes % (auto) 18.9 %; Mean Corpuscular Hemoglobin 29.3 pg (25-34); Mean Corpuscular Hgb Conc 33.6 g/dL (32-36); Mean Corpuscular Volume 87.2 fL (80-100); Mean Platelet Volume 10.7 fL (7.4-10.4); Monocytes # (auto) 0.37 K/uL (0.11-0.59); Monocytes % (auto) 6.6 %; Neutrophils # (auto) 4.09 K/uL (1.4-6.5); Platelet Count 252 K/uL (130-400); RDW Coefficient of Variation 13.7 % (11.5-14.5); RDW Standard Deviation 43.8 fL (36.4-46.3); Red Blood Count 4.44 M/uL (4.2-5.4)
[2019-12-09 12:56] LABS: Appearance Urine Clear (Clear); Bilirubin Urine Negative (Negative); Blood Urine Negative (Negative); Color Urine Yellow; Glucose Urine UA Negative (Negative); Ketones Urine Negative (Negative); Leukocyte Esterase Urine Negative (Negative); Nitrite Urine Negative (Negative); Protein Urine Negative (Negative); Urobilinogen Urine Negative (Negative); pH Urine 7.5 (4.5-7.5)
[2019-12-09 13:07] LABS: Prothrombin Time 10.5 Seconds (9.0-12.0)
[2019-12-09 13:17] LABS: Albumin Globulin Ratio 0.9 (0.9-2); Albumin Level 3.6 gm/dl (3.4-5.0); BUN Creatinine Ratio 14.6 (10-20); Bilirubin,Total 1.2 mg/dl (0.2-1); Calcium 9.6 mg/dl (8.5-10.1); Creatinine Clr Calc Pharmacy 66.2 ml/min; Est GFR (Non-African American) 84.6; Globulin 3.9 gm/dl (2.5-4.0); Potassium 4.6 mmol/L (3.5-5.1); Total Protein 7.5 gm/dl (6.4-8.2)
--- NOTE | 2019-12-10 09:40 | History & Physical Report ---
Date of Service December 10, 2019 Assessment & Plan Admission and Anticipated Discharge Date Admission Date: PRE-OP Diagnosis: Left hip osteoarthritis Planned Procedure: Left total hip arthroplasty Plan: Patient is scheduled to undergo this procedure with Dr. Gurpreet Wu of the [facility] on December 31, 2019. Risks and complications of the procedure such as: Infection, bleeding, pain, scarring, nerve blood vessel damage, weakness, wound problems, stiffness, incomplete relief of symptoms, hardware failure, hardware loosening, wear, fracture, tendon or ligament injury, dislocation, leg length inequality, blood clots, embolism, hear t attack, stroke and were explained to the patient at her visit today by Dr. Wu. Informed consent form the procedure was obtained. Patient also understands risks of proceeding with surgical intervention during the COVID-19 pandemic. Currently the patient is asymptomatic and understands that she will be tested for COVID prior to surgery. Patient has her preanesthesia appointment later this morning and while at the hospital obtain a CBC with differential, complete metabolic panel, PT/INR, blood type and screen, urinalysis, urine culture, hemoglobin A1c and a nasal culture for MRSA. We have already obtained preoperative medical clearance from the patient's primary care provider Dr. Farrell and her EKG is up-to-date. During today's visit we went over the total hip packet, talked about discharge planning, total hip precautions and abduction pillow use. Patient states that she understands all these things because she recently underwent the right total hip arthroplasty. She states that she plans on having in-home therapy with [facility] for 2 weeks postop and then will transition to outpatient physical therapy after her 2-week follow-up with myself on January 14 at 1 PM. She has a walker that she will bring with her on the day of surgery. She will also bring her hip kit. I advised her that she will be discharged on some pain medication, anti-inflammatory medication and aspirin twice daily for DVT prophylaxis. Patient verbalized understanding of all information provided during today's visit. She thanked us for the care that she received. Patient states she has questions or concerns prior to her surgery, she will contact the clinic. History of Present Illness Chief Complaint: Left Hip Pain Primary Care Provider: Luis Farrell History of Present Illness (including history relevant to procedure): 74-year-old female presents the clinic today for preoperative history and physical. Patient underwent a right total hip arthroplasty on June 04, 2019 and has been doing very well since surgery. She now complains of significant left hip pain that is no longer alleviated with use of diclofenac sodium. She feels that it is affecting her gait significantly. She understands she has art hritis in this hip and states that it is becoming significantly worse. Patient states that she has had to start using a cane as an ambulatory aid due to the pain she is experiencing. Patient is ready to proceed with surgical intervention. Past Medical History: Problems: Preop testing Total bilirubin, elevated Osteoarthritis Status post total hip replacement, right Preop examination Trochanteric bursitis History of squamous cell carcinoma Neuropathy Polyneuropathy Degenerative joint disease (DJD) of hip IT band syndrome Biswas's cyst Degenerative arthritis of knee Knee pain, left Prediabetic, prediabetes HTN - Hypertension GERD Hyperlipidemia Allergic rhinitis due to allergen Torn meniscus Family history of cardiovascular disease HEADACHE Hip pain, left Hand pain, left Shoulder joint pain Seasonal allergies Osteoarthrosis of the carpometacarpal joint of the thumb Impingement syndrome of shoulder region H/O: injury Strain of rotator cuff capsule Cholesterol Index finger Family history of OA - Osteoarthritis of joint of finger Fatigue - symptom Breast cancer, left Procedure History Procedure Procedure Date [place] [facility] replacement of right hip joint 06/04/2019 Hip replacement 06/02/2019 Insertion of A-port right subclavian vein 11/20/2018 Lumpectomy of left breast 09/26/2018 Surgery 09/26/2018 - left breast partial masectomy Diagnostic mammogram 08/27/2018 - New biopsy clips status post left breast and axillary biopsies. Path report pending Biopsy of breast 08/27/2018 - The differential is taht of invasive lobular cancer versus invasive ductal cancer Ultrasound Guided Biopsy Left Breast 08/27/2018 - Impression:Ultrasound-guided core needle biopsy of the left 11:00 breast mass, with clip placement. The patient will receive pathology results from her referring provider. Unilateral Left Digital Diagnostic Mammogram Tomosynthesis and targeted left ultrasound 08/26/2018 - Impression: ACR BI RADS CATEGORY 4: SUSPICOUS ULTRASOUND.1. There is a persistent irregular and spiculated mass with associated clustered calcification in the 11:00 to 12:00 posterior left breast seen mammographically and on ultrasound. The largest mammographic mreasurement is 15 mm, the largest ultrasound measurement is 11.5 mm, slight differences are felt to be due to the ill-defined nature of this lesion. Further characterization with left breast ultrasound-guided core biopsy is recommended. 2. Left axillary lymph node sampling is also recommended with fine-needle aspiration and possible core biopsy, of the most prominent 33.6 mm lymph node identified in the left axilla. Mammogram 08/21/2018 - acr bi-rads category 0 : incomplete evaluation: need additional imaging evaluation left breast focal asymmetry with possible associated architectural distortion, for which additional imagine evaluation is recommended Mammogram - screening 08/19/2017 - WNL - 1 yr Epidural steroid injection 08/08/2017 - osmin [place] - lumbar MRI of lumbar spine 05/08/2017 - MULTI MIDLEVEL SPONDYLITIC CHANGES. No evidence of significant spinal or foraminal stenosis X-ray of right ankle 05/02/2017 - no acute osseous injury of right ankle Lower leg X-ray-right 05/02/2017 - no acute osseous injur to right lower leg EMG - Electromyography 02/19/2017 - sensory-motor axonal polyneuropathy Femoral neck DEXA scan 01/29/2017 - Z score 1.3 - followup January 2019 Mammogram 08/29/2016 - amended biopsy left breastnegative for in situ & invasive carcinomarepaet 1 yr unilateral left mammogram 08/22/2016 - increasing cluster of calcifications in a linear distrubution in the left upper outer quadrant. The calcifications are indeterminate and stereotactic biopsy is recommended for further evaluation - Dr. Flores ordered Mammogram - screening 08/15/2016 - benign breast tissue with microcalcifications, Negative for in Situ and invasive carcinoma - stereotactic guided biopsy - there are bilateral scattered and grouped benign rim calcifications in the breasts. However, there are possible new clusters of microcalcifications in the 12:00 and upper outer middle one third of the left breast, for which additional spot magnification views are recommended. Skeletal X-ray of pelvis and hip 08/09/2016 - Moderate to severe left hip osteoarthritis. No fracture or dilocation Biswas's cyst 07/16/2016 - aspiratio Mammogram - screening 08/16/2015 - WNL - 1yr X-ray of left knee 07/19/2015 - exophytic bony exostosis projecting from the proximal fibula. Study of knee is otherwise negative. Cataract extraction 03/02/2015 - senile cataract, left eye Cataract extraction 02/16/2015 - senilr nuclear right eye Mammogram abnormal 01/27/2015 - lenghty report - repeat 6 months PAP test date 10/01/2014 Mammogram - screening 07/27/2014 - cluster calcifications - recheck 6 months Mammogram 01/27/2014 - New clustered microcalcifications in left breast benign. Short interval f/u recommended. Abnormal mammogram 01/11/2014 - need compression views of left breast Mammogram 01/05/2013 - No evidence of malignancy Right shoulder /SAD/biceps Tenotomy 10/21/2012 EKG-preop 09/29/2012 R shoulder x-ray-PSSM 07/21/2012 DEXA-Normal 10/16/2010 - Repeat in 5 yearas rec : OCT 2015 COLONOSCOPY 03/18/2008 Cardiac Cath--WNL 03/18/2004 Dermabrasion to face 03/18/2002 Stress ECHO-False Positive 05/16/2001 FNA RIGHT BREAST 03/18/2001 Fusion Fifth Metatarsal RIGHT foot 03/18/1997 Right foot surgery 1995 BRANNON-BSO 03/18/1993 Dermabrasion to face 03/18/1991 RIGHT Axillary growth removed-BENIGN 03/18/1952 Allergies and Sensitivities: Keflex(vaginitis) Allergy Not found in Search(nasal congestion) lisinopril(COUGH) Social history: Patient consumes approximately 7 alcoholic beverages per week but denies tobacco or illicit drug use. Family history: Cancer, cardiovascular disease, diabetes, heart disease, hypertension, hyperlipidemia and stroke Current Home Meds: (Last Updated 11/18 09:53) (amoxicillin 500 mg oral capsule) 2,000 mg PO As indicated one hour before dental and other procedures as directed(anastrozole 1 mg oral tablet) 1 mg PO Dailyvitamin D (Calcium 600+D) 1 tab PO bidglucosamine (glucosamine-chondroitin 600 mg-750 mg oral tablet) PO BIDtopical (diclofenac 1% topical gel) apply 1 APPLICATION TOPICALLY four times a day if needed - NOT TO EXCEED 16 GRAMS/DAY/SINGLE JOINT OF LOWER EXTREMITIES(diclofenac sodium 75 mg oral delayed release tablet) take 1 tablet by mouth twice a day with food if needed for pain(Pepcid 20 mg oral tablet) 10 mg PO Daily avoid eating and drinking for 10 minutes after each dose & use prnlosartan (hydroCHLOROthiazide-losartan 12.5 mg-50 mg oral tablet) take 1 tablet by mouth once daily 90 DAY SUPPLY PER INSURANCE PLEASEtopical (mometasone 0.1% topical cream) 1 appl topical bid apply to forehead dermatitis until clear and then as needed multivitamin(Aleve) prnpolyunsaturated fatty acids (omega-3 polyunsaturated fatty acids 1100 mg oral delayed release capsule)(pantoprazole 40 mg oral delayed release tablet) take 1 tablet by mouth once daily(Crestor 10 mg oral tablet) 10 mg PO qhs(Coenzyme Q10) 100 mg PO Daily Allergies Allergy/AdvReac Type Severity Reaction Status Date / Time adhesive tape AdvReac Mild SKIN Verified 12/08/19 14:08 IRRITATION AT TIMES-SOME TAPES cephalexin AdvReac Mild VAGINITIS Verified 12/08/19 14:08 lisinopril AdvReac Mild Cough Verified 12/08/19 14:08 Home Medications Home Medications Medication Instructions Recorded Confirmed Type Centrum Silver 1 tab PO QAM 08/15/18 12/08/19 History Glucosamine-Chondr (boswellia) 1 tab PO BID 08/15/18 12/08/19 History coenzyme Q10 [CoQ-10] 100 mg PO QPM 08/15/18 12/08/19 History losartan-hydrochlorothiazide 1 tab PO QAM 08/15/18 12/08/19 History omega-3 fatty acids [Fish Oil 1,000 mg PO QAM 08/15/18 12/08/19 History Concentrate] rosuvastatin 10 mg PO QPM 08/15/18 12/08/19 History acetaminophen [Tylenol Extra 1,000 mg PO BID PRN 11/11/18 12/08/19 History Strength] pantoprazole 40 mg tablet,delayed 40 mg PO PRN PRN tab 12/31/18 12/08/19 History release fluocinonide 0.05 % topical cream 1 applic TOP QID PRN #60 gm 03/02/19 12/08/19 Rx calcium carbonate-vitamin D3 1 tab PO BID 05/25/19 12/08/19 History [Calcium 600 + D(3)] anastrozole 1 mg tablet 1 mg PO QAM 08/06/19 12/08/19 History diclofenac sodium 75 mg PO BID PRN 12/08/19 12/08/19 History Past Med/Surg History Medical History GERD (gastroesophageal reflux disease) History of breast cancer (~2018) L BREAST 2019 [place] Finished chemo 12/2018, finished radiation 02/2019. History of neuropathy Legs. Resolved with steroid injections by pain mgmt. History of palpitations 2003 - cardiac workup included stress test, which was + for reversible ischemia -- sent to [place] for cath (no stents). Per patient cath was clear. No issues since, does not follow with cardio. Hx of migraines Hx of rosacea Hx of skin cancer, basal cell Hx of squamous cell carcinoma of skin Hyperlipidemia Hypertension Osteoarthritis Port-A-Cath in place (11/20/18) Insertion of A-Port Right Subclavian Vein Dr. Payne 11-20-18 Seasonal allergies Surgical History H/O excision of mass SQUAMOUS CELL SKIN BETWEEN BREASTS H/O partial mastectomy L SIDE 09/2018 WITH [place] [facility] [place] of cardiac cath [place] [facility] [place]-NO STENTS, PT REPORTS NO CAD. History of colonoscopy History of Mohs micrographic surgery for skin cancer nose History of right hip replacement Hx of bilateral cataract extraction Hx of foot surgery right Hx of rotator cuff surgery right Hx of total hysterectomy Status post epidural steroid injection done 06/2017 and 07/2017 Family History Father , age 80 stroke Family history of diabetes mellitus Brother Age: 80 Family history of diabetes mellitus Hypertension Heart disease Grandmother (Paternal) , in her seventies perhaps cause unknown Family history of diabetes mellitus Sister Age: 60 Hypertension Breast cancer Mother , of heart disease Heart disease Social History Smoking Status: Never smoker Second Hand Exposure: No; Hx Alcohol Use: Yes Alcohol type: beer and wine Hx Substance Use: No Preferred Language: [place] Communication Ability: Effective Visual Impairment: No Limitations Metal Sorter Required: No Beliefs That Will Affect Care: None marital status: Current Living Situation: Spouse Feels Safe at Home: No Is there a partner from a previous relationship who is making you feel unsafe now?: No Assistive Devices: Cane Review of Systems All systems reviewed & are unremarkable except as noted in Subjective Physical Exam Physical Exam: Physical Exam: (relevant to the procedure, including heart and lung evaluation) General: Alert and oriented x3 with proper grooming and hygiene Eyes: Pupils are equal and react light with accommodation. Extraocular movement s are intact Throat: Deferred due to COVID-19 precautions Cardiac: Regular rate and rhythm with no murmurs or gallops appreciated Lungs: Clear to auscultation throughout with no wheezing, rales or rhonchi Abdomen: Nonobese, nondistended, nontender with normal active bowel sounds Extremities: Left hip exam shows positive Trendelenburg sign. Range of motion is severely limited with flexion to 80 degrees external rotation of 20 degrees and internal rotation of -5 degrees. Stinchfield test is positive. Neurovascular intact. Neuro: Cranial nerves II through XII are intact no motor or sensory deficit Skin: Normal in appearance with no open skin areas or discharge Results & Data ([facility]) Laboratory Results Lab Results 12/09/19 12/09/19 12/09/19 Range/Units 11:22 11:22 11:22 WBC 5.60 (4.8-10.8) K/uL RBC 4.44 (4.2-5.4) M/uL Hgb 13.0 (12.0-16.0) g/dL Hct 38.7 (37-47) % MCV 87.2 (80-100) fL MCH 29.3 (25-34) pg MCHC 33.6 (32-36) g/dL RDW Std Deviation 43.8 (36.4-46.3) fL RDW Coeff of Scott 13.7 (11.5-14.5) % Plt Count 252 (130-400) K/uL MPV 10.7 H (7.4-10.4) fL Immature Gran % (Auto) 0.2 % Neut % (Auto) 73.0 % Lymph % (Auto) 18.9 % [place] % (Auto) 6.6 % Eos % (Auto) 0.9 % Baso % (Auto) 0.4 % Neut # (Auto) 4.09 (1.4-6.5) K/uL Lymph # (Auto) 1.06 L (1.2-3.4) K/uL [place] # (Auto) 0.37 (0.11-0.59) K/uL Eos # (Auto) 0.05 (0-0.5) K/uL Baso # (Auto) 0.02 (0-0.2) K/uL Immature Gran # (Auto) 0.01 (0.00-0.02) K/uL PT 10.5 (9.0-12.0) Seconds INR 1.0 (0.9-1.1) Sodium (136-145) mmol/L Potassium (3.5-5.1) mmol/L Chloride (98-107) mmol/L Carbon Dioxide (21-32) mmol/L Anion Gap (3-11) BUN (7-18) mg/dl Creatinine (0.6-1.2) mg/dl Est Cr Clr Drug Dosing ml/min Est GFR ( Amer) Est GFR (Non-Af Amer) BUN/Creatinine Ratio (10-20) Glucose (70-99) mg/dl Calcium (8.5-10.1) mg/dl Total Bilirubin (0.2-1) mg/dl AST (15-37) U/L ALT (12-78) U/L Alkaline Phosphatase (45-117) U/L Total Protein (6.4-8.2) gm/dl Albumin (3.4-5.0) gm/dl Globulin (2.5-4.0) gm/dl Albumin/Globulin Ratio (0.9-2) Urine Color Yellow Urine Appearance Clear (Clear) Urine pH 7.5 (4.5-7.5) Ur Specific Pierce 1.010 (1.000-1.030) Urine Protein Negative (Negative) Urine Glucose (UA) Negative (Negative) Urine Ketones Negative (Negative) Urine Blood Negative (Negative) Urine Nitrite Negative (Negative) Urine Bilirubin Negative (Negative) Urine Urobilinogen Negative (Negative) Ur Leukocyte Esterase Negative (Negative) Nasal Screen MRSA (PCR) (Negative) Blood Type Antibody Screen 12/09/19 12/09/19 12/09/19 Range/Units 11:22 11:22 11:22 WBC (4.8-10.8) K/uL RBC (4.2-5.4) M/uL Hgb (12.0-16.0) g/dL Hct (37-47) % MCV (80-100) fL MCH (25-34) pg MCHC (32-36) g/dL RDW Std Deviation (36.4-46.3) fL RDW Coeff of Scott (11.5-14.5) % Plt Count (130-400) K/uL MPV (7.4-10.4) fL Immature Gran % (Auto) % Neut % (Auto) % Lymph % (Auto) % [place] % (Auto) % Eos % (Auto) % Baso % (Auto) % Neut # (Auto) (1.4-6.5) K/uL Lymph # (Auto) (1.2-3.4) K/uL [place] # (Auto) (0.11-0.59) K/uL Eos # (Auto) (0-0.5) K/uL Baso # (Auto) (0-0.2) K/uL Immature Gran # (Auto) (0.00-0.02) K/uL PT (9.0-12.0) Seconds INR (0.9-1.1) Sodium 136 (136-145) mmol/L Potassium 4.6 (3.5-5.1) mmol/L Chloride 100 (98-107) mmol/L Carbon Dioxide 30 (21-32) mmol/L Anion Gap 6.0 (3-11) BUN 10 (7-18) mg/dl Creatinine 0.69 (0.6-1.2) mg/dl Est Cr Clr Drug Dosing 66.2 ml/min Est GFR ( Amer) 98.0 Est GFR (Non-Af Amer) 84.6 BUN/Creatinine Ratio 14.6 (10-20) Glucose 90 (70-99) mg/dl Calcium 9.6 (8.5-10.1) mg/dl Total Bilirubin 1.2 H (0.2-1) mg/dl AST 21 (15-37) U/L ALT 27 (12-78) U/L Alkaline Phosphatase 89 (45-117) U/L Total Protein 7.5 (6.4-8.2) gm/dl Albumin 3.6 (3.4-5.0) gm/dl Globulin 3.9 (2.5-4.0) gm/dl Albumin/Globulin Ratio 0.9 (0.9-2) Urine Color Urine Appearance (Clear) Urine pH (4.5-7.5) Ur Specific Pierce (1.000-1.030) Urine Protein (Negative) Urine Glucose (UA) (Negative) Urine Ketones (Negative) Urine Blood (Negative) Urine Nitrite (Negative) Urine Bilirubin (Negative) Urine Urobilinogen (Negative) Ur Leukocyte Esterase (Negative) Nasal Screen MRSA (PCR) Negative (Negative) Blood Type O Positive Antibody Screen NEGATIVE Diagnostic Findings Studies (relevant to the procedure): AP pelvis x-ray show left hip there is been interval joint space loss with perhaps some early collapse of the superior femoral head.
--- NOTE | 2019-12-11 12:07 | Electrocardiogram Report ---
Test Reason : Blood Pressure : / mmHG Vent. Rate : 069 BPM Atrial Rate : 069 BPM P-R Int : 164 ms QRS Dur : 090 ms QT Int : 424 ms P-R-T Axes : 053 061 059 degrees QTc Int : 454 ms Normal sinus rhythm Normal ECG When compared with ECG of 20-AUG-2018 12:01, No significant change was found Confirmed by Long Sousa ([id number]) on 12/11/2019 12:07:23 PM Referred By: Gurpreet Wu Confirmed By:Long Sousa
[~2019-12-31 06:52] MED LIST changes: +ACETAMINOPHEN 500 MG TAB PO SCH; -ATOR10TA82 PO; +BUPIVACAINE 0.5 % 5 MG/1 ML PF 10ML VIAL ONE; -COEN100C11 PO; +CeleBREX 200 MG CAP PO SCH; +FAMOTIDINE 20 MG TAB PO SCH; -LOSA50TA6 PO; +LR 500ML BOLUS, THEN 15ML/HR IV SCH; +LR 60ML/HR IV SCH; +METOCLOPRAMIDE HCL 10 MG TABLET PO SCH; -OFLO0.3S4 OPR; -OMEG-112 PO; -PANT40TA PO; -PRED1SUS3 OPR; -RALO60TA30 PO; -RANI300T2 PO; +ROPIVACAINE 0.5% HCL/PF 150 MG, BUPIVACAINE 0.5% MPF 30 ML, EPINEPHrine 0.15 MG, Ketoro... INFIL SCH; +TRANEXAMIC ACID 1,000 MG **IV Intra-op IV SCH; +TRANEXAMIC ACID 1,000 MG **IV Pre-op IV SCH; -[UNRECOGNIZED DRUG - OTHER] PO; +ceFAZolin 2000MG 2,000 MG/15 ML SYR IV SCH; +dexAMETHasone 4 MG TAB PO SCH; +traMADol HCL 50 MG TABLET PO SCH
[2019-12-31] MEDS ORDERED: LIDOCAINE HCL 2% 2 ML VIAL/AMP(20MG/ML) INFIL ONE (07:52)
[2019-12-31] MEDS ORDERED: MIDAZOLAM HCL 1 MG/ML 2ML VIAL ONE (07:52)
[2019-12-31] MEDS ORDERED: PROPOFOL IV EMULSION 10 MG/ML 20 ML VIAL IV ONE (07:52)
[2019-12-31] MEDS ORDERED: fentaNYL citrate 100 MCG/2 ML VIAL ONE (07:53)
[2019-12-31] MEDS ORDERED: ePHEDrine sulfate 50 MG/ML AMP IV PRN (08:30)
[2019-12-31] MEDS ORDERED: LABETALOL HCL IV 5 MG/ML 20ML IV PRN (08:30)
[2019-12-31] MEDS ORDERED: PHENYLEPHRINE 100MCG/ML 5ML SYR IV PRN (08:30)
[2019-12-31] MEDS ORDERED: HYDROmorphone INJ 1 MG/ML SYRINGE IV PRN (08:30)
[2019-12-31] MEDS ORDERED: ATROPINE SULFATE 0.1 MG/ML 10ML SYR IV PRN (08:30)
[2019-12-31] MEDS ORDERED: ONDANSETRON INJ 2 MG/ML 2 ML VIAL IV PRN ×2 (08:30→11:38)
[2019-12-31] MEDS ORDERED: fentaNYL citrate 100 MCG/2 ML VIAL IV PRN (08:30)
--- NOTE | 2019-12-31 09:09 | History & Physical Bridge Note ---
Date of Service December 31, 2019 History & Physical Bridge Note I have examined the patient, reviewed the History & Physical and in the interval since the performance of the History & Physical I have noted the following changes of clinical significance: no changes noted
[2019-12-31] MEDS ORDERED: ORTHO JOINT ANESTHETIC ONE (09:21)
[2019-12-31] MEDS ORDERED: diphenhydrAMINE 50 MG/ML VIAL IV PRN (11:38)
[2019-12-31] MEDS ORDERED: ALUMINUM/MAGNESIUM SUSP 30 ML UDC PO PRN (11:38)
[2019-12-31] MEDS ORDERED: METOCLOPRAMIDE HCL INJ 5 MG/ML 2 ML VIAL IV PRN (11:38)
[2019-12-31] MEDS ORDERED: oxyCODONE HCL IR 5 MG TAB (IMMEDIATE RELEASE) PO PRN (11:38)
[2019-12-31] MEDS ORDERED: bisacodyL 10 MG SUPP PR PRN (11:38)
[2019-12-31] MEDS ORDERED: MAGNESIUM HYDROXIDE SUSP 30 ML UDC PO PRN (11:38)
[2019-12-31] MEDS ORDERED: NALOXONE HCL 0.4 MG/1 ML VIAL/CARP IV PRN (11:38)
--- NOTE | 2019-12-31 11:38 | Operative Report ---
Post Operative Report Pre & Post Diagnosis Operation Date: 12/31/19 09:30 Pre-Op Diagnosis: Left Hip Degenerative Joint Disease Post-Op Diagnosis: Left Hip Degenerative Joint Disease I identified the patient and participated in the time-out.: Yes Procedure Operation Date: 12/31/19 09:30 Actual Procedures p Left Total Hip Arthroplasty, Uncemented(Left) - Gurpreet Wu MD Surgeon Gurpreet Wu MD Sprinkler Fitter Apprentice JOSHUA Beverly PA-C; Isabella Chiu MD Estimated Blood Loss 100 Findings Consistent with Post-Op Diagnosis Specimens femoral head Complications none Disposition Accompanied Patient To Recovery: Yes Disposition: Recovery Room Description of Procedure I was present during the entire case assisting with positioning, prepping, draping, retraction, wound closure, dressing and abduction pillow placement. Fellow was also present. I served as an extra set of hands. Please see Dr. Wu procedure note for specifics of the case. I attest to the content of the Intraoperative Record and any orders documented therein. Any exceptions are noted below.
[2019-12-31] MEDS ORDERED: PANTOprazole 40 MG TAB PO PRN (11:42)
[2019-12-31] MEDS ORDERED: ACETAMINOPHEN 500 MG TAB PO PRN (11:42)
[2019-12-31] MEDS ORDERED: FLUOCINONIDE 0.05% CR 15 GM TUBE EXT PRN (11:42)
--- NOTE | 2019-12-31 11:58 | XRay Report ---
XR hip 1V LT w pelvis HISTORY: 74 years-old Female IN PACU - A/P PELVIS and LATERAL HIP left hip osteoarthritis. Total aly int arthroplasty. COMPARISON: Pelvis radiograph 12/09/2019 TECHNIQUE: AP view of the pelvis with crosstable lateral view of the left hip FINDINGS: Unchanged right hip total joint arthroplasty. Left hip total joint arthroplasty has been placed in th e interval and appears to be in satisfactory alignment. Expected postoperative soft tissue swelling a nd deep tissue air. Arterial calcifications are noted. No acute fracture, dislocation or unexpected o paque foreign body. IMPRESSION: Left hip total joint arthroplasty with expected postoperative changes. ACT 112: Negative or not required by law. The above report was generated using voice recognition software. It may contain grammatical, syntax o r spelling errors. Electronically signed by: Hema Henderson M.D. 12/31/2019 11:57 AM
--- NOTE | 2019-12-31 12:03 | Operative Report (OR) ---
DATE OF OPERATION: 12/31/2019 PREOPERATIVE DIAGNOSIS: Left hip osteoarthritis. POSTOPERATIVE DIAGNOSIS: Left hip osteoarthritis. OPERATIONS PERFORMED: Left total hip arthroplasty. SURGEON: Gurpreet Wu MD. ASSISTANTS: Isabella Chiu MD and Vale Beverly PA-C. ESTIMATED BLOOD LOSS: 100 mL. INTRAVENOUS FLUIDS: 1100 mL of crystalloid. SPECIMENS: Femoral head. COMPLICATIONS: None. IMPLANTS: 1. DePuy Seymour Gription acetabular shell sector cup 52 mm outer diameter. 2. Seymour cancellous bone screw measuring 6.5 x 30 mm. 3. Seymour Ultrex polyethylene liner, 32 mm inner diameter and 52 mm outer diameter. 4. DePuy Kinderhook femoral stem size 5 high offset. 5. Biolox delta 32 mm femoral head with a +5 offset. INDICATIONS: Tata is a delightful 74-year-old female who is status post a right total hip arthroplasty done within the last year by myself. She had an excellent outcome from this operation. She now has developed bone on bone arthritis in her contralateral left hip. I had a long discussion with her about the risks and benefits of surgery, alternatives to surgery and expected outcomes. After reviewing all these, she elected to proceed with surgery. All questions were answered. Informed consent was signed. OPERATIVE FINDINGS: The patient had severe degenerative osteoarthritis. A ceramic on polyethylene bearing total hip arthroplasty was performed through a posterior approach. DESCRIPTION OF THE OPERATION: The patient was identified in the preoperative holding area where her surgical site was marked. She was given a spinal anesthetic and brought back to main operating room. She was placed on the operating room table and moved in lateral decubitus position. Axillary roll was placed. All bony prominences were padded. Perioperative antibiotics were administered. She was prepped and draped in normal sterile fashion. Prior to incision, a multidisciplinary timeout was called. All in the room were in agreement. We began by making a 14 cm long incision for a posterior approach to the hip. We dissected down through subcutaneous tissues to the level of fascia. The fascia was incised in line of the incision. Charnley bow was placed. The trochanteric bursa was reflected off of the piriformis and short external rotators. Piriformis and short external rotators were dissected off the posterior aspect of the hip. Upper border of the quadratus femoris was released. A box cut was made in the capsule. The femoral head was dislocated. A femoral neck cut was made at 12 mm, which was our preoperative template. We then exposed the acetabulum. The labrum was sharply excised. She had significant medial osteophyte. Contents of the cotyloid fossa were removed. We then began reaming with a size 44 reamer. This was used to remove the medial osteophyte. We then sequentially reamed her up all the way to a size 52 mm cup. This gave us good circumferential bleeding bone. We then irrigated out the acetabulum and opened up the 52 Seymour sector Gription cup and impacted it down in position with 40 degrees of lateral opening and 25 degrees of anteversion. A single cancellous screw was placed up into the ilium. Excellent fixation was obtained. The polyethylene liner for a 32 mm femoral head was then opened up and impacted into the shell. The locking mechanism was checked and it had engaged as appropriate. Next, the anterior osteophyte was removed off of the acetabulum using a curved osteotome and pituitary rongeur. We then began preparing the femur. The lateral neck was removed with a box osteotome. The canal finder was used followed by the lateralizing reamer. We then reamed her up to approximately size 6 Kinderhook stem, which was a size she had on her other side. We then began broaching. We got her all the way up to a size 5 broach, which had excellent torsional stability and was sitting just proud from her neck cut. We then began trialing her with a standard offset neck. Her stability exam was not quite what I wanted and so we ended up switching her out to a high-offset neck. We trialled with a +5 and then a +8.5 head. She had equal leg lengths with the +8.5 mm head. She had excellent stability. We therefore decided to use the DePuy Kinderhook high-offset stem size 5. The femoral trial components were removed. Femoral canal was irrigated and dried. When we impacted the femoral component, it did sit about 2 mm more proximally than the broach. Therefore, I downsized her to a +5 femoral head. The center of the femoral head to lesser trochanter distance was 55 mm, which is what she was before we made the femoral neck osteotomy. We reduced the hip and checked for stability exam. Her leg lengths were symmetric. Her shuck test was appropriate. She was stable in extension and external rotation and in the sleeper position. At 90 degrees of hip flexion, she could be internally rotated 55 degrees before leaving out of the cup. I was very happy with the stability exam, so I therefore opened up the +5 ceramic femoral head, 32 mm diameter. This was gently impacted onto the trunnion. The hip was atraumatically reduced. Hip was irrigated out with sterile Betadine solution. Periarticular injection was placed. We then began to close. The piriformis, short external rotators and posterior capsule were repaired using #2 Vicryl through the holes in the posterior aspect of the greater trochanter. Fascia was run with a looped #1 PDS. Subcutaneous layer was closed with a running #1 PDS. The deep dermal layer was closed with 2-0 Vicryl. ZipLine was used for the skin. Silverlon dressing was placed. The patient was then rolled supine, leg lengths were checked and were symmetric. She was placed in abduction pillow and transferred to the recovery room in stable condition. POSTOPERATIVE COURSE: The patient will be admitted to the hospital overnight for pain control and monitoring. She will be weightbearing as tolerated with posterior hip precautions. Aspirin for DVT prophylaxis. I attest to the content of the Intraoperative Record and any orders documented therein. Any exception s are noted below.
--- NOTE | 2019-12-31 12:18 | Anesthesiology Progress Note ---
Date of Service December 31, 2019 Anesthesia Post Procedure Vital Signs Vital Signs: Temp Pulse Pulse Resp BP Pulse Ox 12/31/19 12:00 90 19 140/79 96 12/31/19 11:50 71 17 95/77 L 100 12/31/19 11:40 91 H 13 126/67 99 12/31/19 11:33 36.6 C 96 H 17 106/61 98 12/31/19 07:58 91 H 20 166/83 H 99 12/31/19 07:18 37.2 C 94 H 20 161/86 H 98 Transfer of Care Handoff Completed per policy Notes Mental Status: alert / awake / arousable Patient Amnestic to Procedure: Yes Nausea / Vomiting: adequately controlled Pain: adequately controlled Airway Patency, RR, SpO2: stable & adequate BP & HR: stable & adequate Hydration State: stable & adequate Neuraxial Anesthesia: was administered and sensory block is resolving Anesthetic Complications: no major complications apparent and Pt Satisfied with anesthetic care
[2019-12-31] MEDS ORDERED: INFLUENZA VIRUS QUAD VACCINE 0.5 ML SYR IM ONE (12:48)
[2019-12-31] MEDS ORDERED: INFLUENZA ADMINISTRATION CHARGE ONE (12:48)
[2019-12-31] MEDS: ACETAMINOPHEN 500 MG TAB PO SCH ×2 (14:28→21:22)
[2019-12-31] MEDS: SODIUM CHLORIDE 0.9% 1000ML 1,000 ML IV SCH ×2 (14:29→22:46)
--- NOTE | 2019-12-31 14:56 | Operative Report ---
Post Operative Report Pre & Post Diagnosis Operation Date: 12/31/19 09:30 Pre-Op Diagnosis: Left Hip Degenerative Joint Disease Post-Op Diagnosis: Left Hip Degenerative Joint Disease I identified the patient and participated in the time-out.: Yes Procedure Operation Date: 12/31/19 09:30 Actual Procedures p Left Total Hip Arthroplasty, Uncemented(Left) - Gurpreet Wu MD Surgeon Gurpreet Colon MD Reworker JOSHUA Beverly PA-C; Isabella Chiu MD Estimated Blood Loss 100 Findings Consistent with Post-Op Diagnosis Specimens femoral head Anesthesia Type General Complications none Disposition Accompanied Patient To Recovery: Yes Disposition: Recovery Room Description of Procedure as per Bryce Red's note, I assisted in scrubbing and draping, instruments handling, certain parts of the procedure and wound closure I attest to the content of the Intraoperative Record and any orders documented therein. Any exceptions are noted below.
[2019-12-31] MEDS: KETOROLAC TROMETHAMINE 15 MG/ML VIAL IV SCH ×2 (15:57→21:23)
[2019-12-31] MEDS: Scopolamine CHECK PATCH PLACEMENT SCH ×2 (15:57→23:48)
[2019-12-31] MEDS: CLINDAMYCIN 600 MG in DEXTROSE 5% 50 ML IV SCH (17:22)
[2019-12-31] MEDS ORDERED: TRANEXAMIC ACID / 0.7% NACL 1,000 MG/100 ML BAG IV SCH (17:41)
[2019-12-31] MEDS ORDERED: SENNA 8.6 MG TAB PO SCH (21:00)
[2019-12-31] MEDS ORDERED: NON-FORMULARY MEDICATION (Coenzyme Q10 [Coq-10] 100 MG) PO SCH (21:00)
[2019-12-31] MEDS ORDERED: ROSUVASTATIN CALCIUM 10 MG TAB PO SCH (21:00)
[2019-12-31] MEDS: CALCIUM 600MG + VIT D 400 IU TAB PO SCH (21:22)
[2019-12-31] MEDS: DOCUSATE SODIUM 100 MG CAP PO SCH (21:22)
[2019-12-31] MEDS: ASPIRIN 81 MG ECTAB PO SCH (21:22)
[2020-01-01] MEDS: CLINDAMYCIN 600 MG in DEXTROSE 5% 50 ML IV SCH (01:09)
[2020-01-01] MEDS: KETOROLAC TROMETHAMINE 15 MG/ML VIAL IV SCH ×2 (04:59→10:32)
[2020-01-01] MEDS: ACETAMINOPHEN 500 MG TAB PO SCH ×2 (05:01→10:34)
[2020-01-01 06:33] LABS: Eosinophils # (auto) 0.01 K/uL (0-0.5); Eosinophils % (auto) 0.1 %; Hemoglobin 10.3 g/dL (12.0-16.0); Immature Granulocytes # (auto) 0.01 K/uL (0.00-0.02); Immature Granulocytes % (auto) 0.1 %; Lymphocytes # (auto) 0.85 K/uL (1.2-3.4); Lymphocytes % (auto) 11.5 %; Mean Corpuscular Hemoglobin 29.5 pg (25-34); Mean Corpuscular Hgb Conc 34.3 g/dL (32-36); Mean Platelet Volume 10.1 fL (7.4-10.4); Monocytes # (auto) 0.54 K/uL (0.11-0.59); Monocytes % (auto) 7.3 %; Neutrophils # (auto) 5.97 K/uL (1.4-6.5); Platelet Count 175 K/uL (130-400); RDW Standard Deviation 41.1 fL (36.4-46.3); Red Blood Count 3.49 M/uL (4.2-5.4); White Blood Count 7.38 K/uL (4.8-10.8)
[2020-01-01 07:03] LABS: Calcium 9.2 mg/dl (8.5-10.1); Creatinine Clr Calc Pharmacy 57.8 ml/min; Est GFR (African American) 84.3; Est GFR (Non-African American) 72.7; Potassium 4.2 mmol/L (3.5-5.1)
[2020-01-01] MEDS ORDERED: dexAMETHasone 4 MG TAB PO SCH (08:00)
[2020-01-01] MEDS ORDERED: ANASTROZOLE 1 MG TAB PO SCH (09:00)
[2020-01-01] MEDS ORDERED: NON-FORMULARY MEDICATION (Multivit-Min-Fa-Lycopen-Lutein [Centrum Silver] 1 TAB) PO SCH (09:00)
[2020-01-01] MEDS ORDERED: LOSARTAN/HCTZ 50/12.5MG TAB PO SCH (09:00)
[2020-01-01] MEDS ORDERED: OMEGA-3 (PURIFIED FISH OIL) 1 GM CAP PO SCH (09:00)
[2020-01-01] MEDS ORDERED: MULTIVITAMIN TAB PO SCH (09:00)
[2020-01-01] MEDS: CALCIUM 600MG + VIT D 400 IU TAB PO SCH (09:15)
[2020-01-01] MEDS: Scopolamine CHECK PATCH PLACEMENT SCH (09:15)
[2020-01-01] MEDS: ASPIRIN 81 MG ECTAB PO SCH (09:15)
[2020-01-01] MEDS: DOCUSATE SODIUM 100 MG CAP PO SCH (09:15)
--- NOTE | 2020-01-01 11:06 | Orthopedic Progress Note ---
Date of Service January 01, 2020 Assessment & Plan (1) S/P total hip arthroplasty: Total hip precautions weightbearing as tolerated with walker assistance PT/OT Keep dressing in place DVT prophylaxis with TEDs and aspirin Abduction pillow use for 6 weeks Pain control with p.o. meds Ice with the EZ wrap Follow-up at [facility] as scheduled in 2 weeks. With questions call [phone] Admission and Anticipated Discharge Date Admission Date: December 31, 2019 Subjective This 74 yo F is day 1 s/p left total hip arthroplasty. She states that she is doing very well, and that she had no issues with PT/OT this AM. Patient states that she is ready to go home. Currently she denies CP, SOB, nausea, vomiting, fever, chills, sweats, lethargy or numbness/tingling in the left lower extremity. Review of Systems Review of Systems: All systems reviewed & are unremarkable except as noted in HPI & below Physical Exam Physical Exam: Left hip: Silverlon is clean dry and intact. Patient is able to perform a straight leg raise test. Logroll test is negative. Patient experiences no pain with light passive internal and external hip rotation. She has no calf tenderness. She is able to actively dorsi and plantarflex her foot without difficulty. Quad strength is 4 out of 5. Patient is neurovascularly intact in the left lower extremity. Results & Data ([facility]) Vital Signs (Past 12 Hours) Vital Signs Temp Pulse Resp BP Pulse Ox 01/01/20 07:00 36.6 C 65 16 128/74 99 01/01/20 03:11 36.7 C 62 16 120/74 99 12/31/19 23:55 36.6 C 58 L 18 127/69 98 Laboratory Results 01/01/20 01/01/20 Range/Units 06:00 06:00 WBC 7.38 (4.8-10.8) K/uL RBC 3.49 L (4.2-5.4) M/uL Hgb 10.3 L (12.0-16.0) g/dL Hct 30.0 L (37-47) % MCV 86.0 (80-100) fL MCH 29.5 (25-34) pg MCHC 34.3 (32-36) g/dL RDW Std Deviation 41.1 (36.4-46.3) fL RDW Coeff of Scott 13.0 (11.5-14.5) % Plt Count 175 (130-400) K/uL MPV 10.1 (7.4-10.4) fL Immature Gran % (Auto) 0.1 % Neut % (Auto) 81.0 % Lymph % (Auto) 11.5 % Oliver % (Auto) 7.3 % Eos % (Auto) 0.1 % Baso % (Auto) 0.0 % Neut # (Auto) 5.97 (1.4-6.5) K/uL Lymph # (Auto) 0.85 L (1.2-3.4) K/uL Oliver # (Auto) 0.54 (0.11-0.59) K/uL Eos # (Auto) 0.01 (0-0.5) K/uL Baso # (Auto) 0.00 (0-0.2) K/uL Immature Gran # (Auto) 0.01 (0.00-0.02) K/uL Sodium 133 L (136-145) mmol/L Potassium 4.2 (3.5-5.1) mmol/L Chloride 101 (98-107) mmol/L Carbon Dioxide 26 (21-32) mmol/L Anion Gap 6.0 (3-11) BUN 15 (7-18) mg/dl Creatinine 0.79 (0.6-1.2) mg/dl Est Cr Clr Drug Dosing 57.8 ml/min Est GFR ( Amer) 84.3 Est GFR (Non-Af Amer) 72.7 BUN/Creatinine Ratio 19.0 (10-20) Glucose 124 H (70-99) mg/dl Calcium 9.2 (8.5-10.1) mg/dl
--- NOTE | 2020-01-01 11:07 | Discharge Summary ---
Date of Service January 01, 2020 Admission HPI Per Admitting Provider History of Present Illness (including history relevant to procedure): 74-year-old female presents the clinic today for preoperative history and physical. Patient underwent a right total hip arthroplasty on June 04, 2019 and has been doing very well since surgery. She now complains of significant left hip pain that is no longer alleviated with use of diclofenac sodium. She feels that it is affecting her gait significantly. She understands she has arthritis in this hip and states that it is becoming significantly worse. Patient states that she has had to start using a cane as an ambulatory aid due to the pain she is experiencing. Patient is ready to proceed with surgical intervention. Past Medical History: Problems: Preop testing Total bilirubin, elevated Osteoarthritis Status post total hip replacement, right Preop examination Trochanteric bursitis History of squamous cell carcinoma Neuropathy Polyneuropathy Degenerative joint disease (DJD) of hip IT band syndrome Biswas's cyst Degenerative arthritis of knee Knee pain, left Prediabetic, prediabetes HTN - Hypertension GERD Hyperlipidemia Allergic rhinitis due to allergen Torn meniscus Family history of cardiovascular disease HEADACHE Hip pain, left Hand pain, left Shoulder joint pain Seasonal allergies Osteoarthrosis of the carpometacarpal joint of the thumb Impingement syndrome of shoulder region H/O: injury Strain of rotator cuff capsule Cholesterol Index finger Family history of OA - Osteoarthritis of joint of finger Fatigue - symptom Breast cancer, left Procedure History Procedure Procedure Date Comments Mohs surgery Total replacement of right hip joint 06/04/2019 Hip replacement 06/02/2019 Insertion of A-port right subclavian vein 11/20/2018 Lumpectomy of left breast 09/26/2018 Surgery 09/26/2018 - left breast partial masectomy Diagnostic mammogram 08/27/2018 - New biopsy clips status post left breast and axillary biopsies. Path report pending Biopsy of breast 08/27/2018 - The differential is taht of invasive lobular cancer versus invasive ductal cancer Ultrasound Guided Biopsy Left Breast 08/27/2018 - Impression:Ultrasound-guided core needle biopsy of the left 11:00 breast mass, with clip placement. The patient will receive pathology results from her referring provider. Unilateral Left Digital Diagnostic Mammogram Tomosynthesis and targeted left ultrasound 08/26/2018 - Impression: ACR BI RADS CATEGORY 4: SUSPICOUS ULTRASOUND.1. There is a persistent irregular and spiculated mass with associated clustered calcification in the 11:00 to 12:00 posterior left breast seen mammographically and on ultrasound. The largest mammographic mreasurement is 15 mm, the largest ultrasound measurement is 11.5 mm, slight differences are felt to be due to the ill-defined nature of this lesion. Further characterization with left breast ultrasound-guided core biopsy is recommended. 2. Left axillary lymph node sampling is also recommended with fine-needle aspiration and possible core biopsy, of the most prominent 33.6 mm lymph node identified in the left axilla. Mammogram 08/21/2018 - acr bi-rads category 0 : incomplete evaluation: need additional imaging evaluation left breast focal asymmetry with possible associated architectural distortion, for which additional imagine evaluation is recommended Mammogram - screening 08/19/2017 - WNL - 1 yr Epidural steroid injection 08/08/2017 - osmin Ch[place]m - lumbar MRI of lumbar spine 05/08/2017 - MULTI MIDLEVEL SPONDYLITIC CHANGES. No evidence of significant spinal or foraminal stenosis X-ray of right ankle 05/02/2017 - no acute osseous injury of right ankle Lower leg X-ray-right 05/02/2017 - no acute osseous injur to right lower leg EMG - Electromyography 02/19/2017 - sensory-motor axonal polyneuropathy Femoral neck DEXA scan 01/29/2017 - Z score 1.3 - followup January 2019 Mammogram 08/29/2016 - amended biopsy left breastnegative for in situ & invasive carcinomarepaet 1 yr unilateral left mammogram 08/22/2016 - increasing cluster of calcifications in a linear distrubution in the left upper outer quadrant. The calcifications are indeterminate and stereotactic biopsy is recommended for further evaluation - Dr. Flores ordered Mammogram - screening 08/15/2016 - benign breast tissue with microcalcifications, Negative for in Situ and invasive carcinoma - stereotactic guided biopsy - there are bilateral scattered and grouped benign rim calcifications in the breasts. However, there are possible new clusters of microcalcifications in the 12:00 and upper outer middle one third of the left breast, for which additional spot magnification views are recommended. Skeletal X-ray of pelvis and hip 08/09/2016 - Moderate to severe left hip osteoarthritis. No fracture or dilocation Biswas's cyst 07/16/2016 - aspiratio Mammogram - screening 08/16/2015 - WNL - 1yr X-ray of left knee 07/19/2015 - exophytic bony exostosis projecting from the proximal fibula. Study of knee is otherwise negative. Cataract extraction 03/02/2015 - senile cataract, left eye Cataract extraction 02/16/2015 - senilr nuclear right eye Mammogram abnormal 01/27/2015 - lenghty report - repeat 6 months PAP test date 10/01/2014 Mammogram - screening 07/27/2014 - cluster calcifications - recheck 6 months Mammogram 01/27/2014 - New clustered microcalcifications in left breast benign. Short interval f/u recommended. Abnormal mammogram 01/11/2014 - need compression views of left breast Mammogram 01/05/2013 - No evidence of malignancy Right shoulder /SAD/biceps Tenotomy 10/21/2012 EKG-preop 09/29/2012 R shoulder x-ray-PSSM 07/21/2012 DEXA-Normal 10/16/2010 - Repeat in 5 yearas rec : OCT 2015 COLONOSCOPY 03/18/2008 Cardiac Cath--WNL 03/18/2004 Dermabrasion to face 03/18/2002 Stress ECHO-False Positive 05/16/2001 FNA RIGHT BREAST 03/18/2001 Fusion Fifth Metatarsal RIGHT foot 03/18/1997 Right foot surgery 1996 BRANNON-BSO 03/18/1993 Dermabrasion to face 03/18/1991 RIGHT Axillary growth removed-BENIGN 03/18/1952 Allergies and Sensitivities: Keflex(vaginitis) Allergy Not found in Search(nasal congestion) lisinopril(COUGH) Social history: Patient consumes approximately 7 alcoholic beverages per week but denies tobacco or illicit drug use. Family history: Cancer, cardiovascular disease, diabetes, heart disease, hypertension, hyperlipidemia and stroke Current Home Meds: (Last Updated 11/18 09:53) (amoxicillin 500 mg oral capsule) 2,000 mg PO As indicated one hour before dental and other procedures as directed(anastrozole 1 mg oral tablet) 1 mg PO Dailyvitamin D (Calcium 600+D) 1 tab PO bidglucosamine (glucosamine-chondroitin 600 mg-750 mg oral tablet) PO BIDtopical (diclofenac 1% topical gel) apply 1 APPLICATION TOPICALLY four times a day if needed - NOT TO EXCEED 16 GRAMS/DAY/SINGLE JOINT OF LOWER EXTREMITIES(diclofenac sodium 75 mg oral delayed release tablet) take 1 tablet by mouth twice a day with food if needed for pain(Pepcid 20 mg oral tablet) 10 mg PO Daily avoid eating and drinking for 10 minutes after each dose & use prnlosartan (hydroCHLOROthiazide-losartan 12.5 mg-50 mg oral tablet) take 1 tablet by mouth once daily 90 DAY SUPPLY PER INSURANCE PLEASEtopical (mometasone 0.1% topical cream) 1 appl topical bid apply to forehead dermatitis until clear and then as needed multivitamin(Aleve) prnpolyunsaturated fatty acids (omega-3 polyunsaturated fatty acids 1100 mg oral delayed release capsule)(pantoprazole 40 mg oral delayed release tablet) take 1 tablet by mouth once daily(Crestor 10 mg oral tablet) 10 mg PO qhs(Coenzyme Q10) 100 mg PO Daily Admission Exam Per Admitting Provider Physical Exam: (relevant to the procedure, including heart and lung evaluation) General: Alert and oriented x3 with proper grooming and hygiene Eyes: Pupils are equal and react light with accommodation. Extraocular movements are intact Throat: Deferred due to COVID-19 precautions Cardiac: Regular rate and rhythm with no murmurs or gallops appreciated Lungs: Clear to auscultation throughout with no wheezing, rales or rhonchi Abdomen: Nonobese, nondistended, nontender with normal active bowel sounds Extremities: Left hip exam shows positive Trendelenburg sign. Range of motion is severely limited with flexion to 80 degrees external rotation of 20 degrees and internal rotation of -5 degrees. Stinchfield test is positive. Neurovascular intact. Neuro: Cranial nerves II through XII are intact no motor or sensory deficit Skin: Normal in appearance with no open skin areas or discharge Principal Diagnosis Left hip osteoarthritis Discharge Exam Left hip: Silverlon is clean dry and intact. Patient is able to perform a straight leg raise test. Logroll test is negative. Patient experiences no pain with light passive internal and external hip rotation. She has no calf ten derness. She is able to actively dorsi and plantarflex her foot without difficulty. Quad strength is 4 out of 5. Patient is neurovascularly intact in the left lower extremity. Discharge Data Allergies Allergy/AdvReac Type Severity Reaction Status Date / Time adhesive tape AdvReac Mild SKIN Verified 12/31/19 07:34 IRRITATION AT TIMES-SOME TAPES cephalexin AdvReac Mild VAGINITIS Verified 12/31/19 07:34 lisinopril AdvReac Mild Cough Verified 12/31/19 07:34 Consultations 01/01/20 08:00 Consult Case Management - Discharge Planning Routine Procedures Performed Operation Date: 12/31/19 09:30 Actual Procedures p Left Total Hip Arthroplasty, Uncemented(Left) - Gurpreet Wu MD Hospital Course (1) S/P total hip arthroplasty: Patient did very well overnight. She had no issues with physical therapy or occupational therapy this morning. She plans on discharge home today with in-home health services with on license of [facility]. Total hip precautions weightbearing as tolerated with walker assistance PT/OT Keep dressing in place DVT prophylaxis with TEDs and aspirin Abduction pillow use for 6 weeks Pain control with p.o. meds Ice with the EZ wrap Follow-up at [facility] orthopedics as scheduled in 2 weeks. With questions call [phone] Total Time Total Time Spent Total Time Spent (In Minutes): 25 minutes Total Time Includes: Examination of the Patient, Discharge Planning and Medication Reconciliation Discharge Plan Discharge Items Patient Disposition: Home - Home Health Services Reason For Visit: Left Hip Arthritis Discharge Diagnosis: Left hip osteoarthritis Activity: As commented below Bathing: Keep incision dry Bathing Comment: may shower tomorrow Sexual Activity: Wait until after follow-up appointment Exercise/Sports: Wait until after follow-up appointment Driving/Machine Use: No driving until cleared by correctional program specialist Weightbearing: Left weightbearing Weightbearing Comment: as tolerated with walker assistance Non-emergency contact: Primary Care Provider Call non-emergency contact if: you have any medication questions, your temperature is above 101.5, your wound has increased drainage and your wound pain has increased Follow-up/Referrals: Luis Farrell [Primary Care Provider] - Diet: Regular Addtl Attending Provider Instructions: Post-operative Instructions Dear Patient and Family/Friends, Before you are discharged from the hospital, it is important to know what to expect when you get home after surgery. To that end, we have created this sheet of discharge instructions which covers many commonly asked questions. Make sure you go through this sheet in its entirety with your nurse before you are discharged. Please note that we will go over the specifics of your surgery and recovery when you return for your first post-operative visit. Sincerely, Dr. Wu Medications 1. Oxycodone 5mg: take 1-2 tabs every 4-6 hours as needed for pain. 30 tablets will be sent to your pharmacy. 2. Diclofenac Sodium 75 mg: take 1 tab twice daily for 30 days post operatively. This will be sent to your pharmacy with 1 refill. 3. Aspirin 81 mg: take 2 tabs daily for 30 days post operatively for blood clot prevention. Please purchase. 4. Extra Strength Tylenol 500 mg: take 2 tabs every 4-6 hours as needed for post op pain control. Please purchase. Pain Expect to be in a fair amount of pain after surgery. Remember, our goal is not to eliminate your pain, but to make it tolerable. It is a good idea to stay ahead of your pain by taking the medications you were prescribed once you get home. Typically, the pain starts improving 3-7 days after surgery. You should start weaning off the narcotic pain medication (oxycodone, hydrocodone, hydromorphone, morphine) as soon as your pain improves. Please call our office if your pain is not adequately controlled. Ice Ice your operative site at least 5 times a day for 15-30 minutes at a time. Make sure you have a thin cloth between the ice or cooling unit and your skin to prevent rachel bite. This is especially important if you received a nerve block. Continue icing your operative site for the first 5-7 days after surgery, then as needed. Diet/Nausea/Vomiting Start by drinking clear liquids and eating crackers. If you can tolerate this, then you may resume your normal diet. If you feel nauseated or vomit, take Zofran/ondansetron (if prescribed). Please call our office if you have intracta ble nausea or vomiting, or, if after hours, you may go to the Emergency Room for help. Constipation Constipation is a common side effect of narcotic pain medication. If you have not had a bowel movement within 2 days after surgery, we recommend purchasing an over the counter laxative such as Milk of Magnesia, Dulcolax, or Miralax from a local pharmacy, and taking it as instructed. Call our clinic if any questions. Nerve block The anesthesia team sometimes places a nerve block to help with post-operative pain control. This results in significant numbness and inability to move the extremity. The nerve block usually wears off in 8-12 hours, but sometimes can last up to 24 hours. Please call our office if you are still unable to move y our extremity after 24 hours, unless you received a pain pump to take home. Nerve blocks typically wear off quickly, so start taking pain medication as soon as you start feeling soreness near your surgical site. Weight bearing and Range of Motion. Do not bear any weight through your operative extremity immediately after surgery. If you had upper extremity surgery, do not lift anything with that arm. If you are in a knee brace, keep it locked in place until your follow-up. We will discuss your weight bearing, range of motion, and lifting restrictions in detail at your first post-operative appointment. Continuous Passive Motion (CPM) Machine If you were prescribed a CPM machine, it will start after your first post- operative appointment, at which time we will give you instructions on the range of motion settings and duration of treatment Physical therapy You will be given a prescription for physical therapy or occupational therapy at your first post-operative appointment. Typically, patients start therapy within 1 week of surgery Wound care and showering We will inspect your wound at your first post-operative visit, and may do a dressing change at that time. Most patients will be in a water-proof dressing that is removed 14 days after surgery. It is normal to see some dried blood on the dressing. Do not remove your dressing, paper strips or sutures yourself unless you are given permission. Showering is allowed the day after surgery. Do not scrub or remove any dressings. The wound should not be submerged underwater (i.e. in a bathtub or pool) until 4 weeks after surgery MARCO stockings If you were given white stockings, these are to be worn at all times except to shower (on both legs) for the first 2 weeks after surgery. Driving You may not drive while taking narcotic pain medication or while in a cast, spli nt, sling or brace. You, the patient, need to make the final determination about when you are safe to drive, however, the earliest you may consider driving after surgery is below: Hand/Wrist/Elbow Surgery: 3 days Shoulder Surgery: 2 weeks Hip,/Knee/Ankle Surgery: 4 weeks Fracture repair: 6 weeks Return to Work Your return to work depends on what surgery was done and what type of work you do. Please bring any paperwork your employer needs completed to your first post-operative visit. Also, bring a description of your job duties, as this helps us to understand what risks you may face at work. Travel Avoid long distance travel (greater than 1 hour) in airplanes and cars for the first 6 weeks after surgery. If you must travel, you need to have a Doppler ultrasound done before you travel to rule out a blood clot in your legs. Follow-up You should have a follow-up appointment already scheduled 1-2 days after surgery. If not, please contact our office to make this appointment before you leave the hospital. When to call the office It is normal to have swelling and bruising in the limb that was operated on. This will improve with time. It is also normal to have fevers for the first 2 days after surgery. Reasons you should call your doctor include: Uncontrolled pain; Nausea, vomiting, or constipation that does not improve with medication; Fevers over 101.5, chills, sweats; Drainage or bleeding from the wound; Foul odor; Spreading areas of redness; Any other concerns Pending Studies at Discharge: No Stand-Alone Forms: [facility] Medications and DC Order Prescriptions: New oxycodone 5 mg tablet 5 mg PO Q6H MDD 6 tabs per day Qty: 30 RF: 0 diclofenac sodium 75 mg tablet,delayed release (DR/EC) 75 mg PO BID Qty: 60 RF: 1 Continued anastrozole 1 mg tablet 1 mg PO QAM RF: 0 fluocinonide 0.05 % cream 1 applic TOP QID PRN (Reason: itching) Qty: 60 RF: 1 acetaminophen [Tylenol Extra Strength] 500 mg Tablet 1,000 mg PO BID PRN (Reason: Pain) RF: 0 omega-3 fatty acids [Fish Oil Concentrate] 1,000 mg Capsule 1,000 mg PO QAM RF: 0 losartan-hydrochlorothiazide 50-12.5 mg Tablet 1 tab PO QAM RF: 0 coenzyme Q10 [CoQ-10] 100 mg Capsule 100 mg PO QPM RF: 0 rosuvastatin 10 mg Tablet 10 mg PO QPM RF: 0 Centrum Silver 0.4-300-250 mg-mcg-mcg Tablet 1 tab PO QAM RF: 0 Glucosamine-Chondr (boswellia) 856-038-44-1-3 mg Tablet 1 tab PO BID RF: 0 pantoprazole [Protonix] 40 mg tablet,delayed release (DR/EC) 40 mg PO PRN PRN (Reason: GERD) RF: 0 calcium carbonate-vitamin D3 [Calcium 600 + D(3)] 600 mg(1,500mg) -200 unit Tablet 1 tab PO BID RF: 0 diclofenac sodium 75 mg Tablet,Delayed Release (Dr/Ec) 75 mg PO BID PRN (Reason: Pain) RF: 0 Discharge Orders: Discharge Order (Routine); Ordered 01/01/20 Ordered By: Ross Beverly Admission Data Admit Date/Time: 12/31/19 11:38 Attending Provider: Gurpreet Wu Admit Provider: Gurpreet Wu Primary Care Provider: Luis Farrell Other Providers: [facility]
[2020-01-01 11:19] VITALS: BP 124/67; TEMP 98.6; O2SAT 98
[2020-01-01 12:21] VITALS: PULSE 68
[2020-01-01] MEDS ORDERED: CeleBREX 200 MG CAP PO SCH (21:00)
[2020-01-01] MEDS ORDERED: DICLOFENAC SODIUM 75 MG TABCR PO PRN (21:00)
== END 2020-01-01 13:19 | disposition home health service (06) ==
LOC: 3E 06:52 → ASU 06:52

== ENCOUNTER 2023-08-05 00:26 | Inpatient (IN) ==
--- OUTSIDE RECORDS SUMMARY | 2023-08-05 00:32 | External Medical Summary | Continuity of Care Document ---
Author Name Unknown Organization [facility] [address] [address] [place] [id number] Care Team Providers Care Corrections Caseworker Name Role Phone Luis Farrell Primary Care Physician [phone] [facility]counter [id number] Date(s): 04/25/23 - 04/25/[facility] 0 [facility] 207 [facility] [address] [address] [phone] Encounter Diagnosis Body mass index [BMI] 25.0-25.9, adult(Discharge Diagnosis) - 04/25/23 GERD(Discharge Diagnosis) - 04/24/23 HTN - Hypertension(Discharge Diagnosis) - 04/24/23 Hyperlipidemia(Discharge Diagnosis) - 04/24/23 Health care maintenance(Discharge Diagnosis) - 04/24/23 Prediabetic, prediabetes(Discharge Diagnosis) - 04/24/23 Discharge Disposition: Home or Self Care Attending Physician: MD Farrell Michael P Allergies, Adverse Reactions, Alerts Substance Reaction Severity Status lisinopril COUGH Active Keflex vaginitis Resolved Macrobid nausea Active Allergy Not found in Search 1 nasal congestion Active 1Seasonal allergies- video production intern jv Assessment and Plan Extracted from: Title:Office Visit Note Author:MD Jami, Anthony Shirley Date:04/25/23 1.GERD STATUS:Chronic stable. Previous visit: Flaring recently and on Protonix x 4 weeks now with some improvement Her stress is high due to brother dying. She was doing well until brother got worse and GERD flared. Protonix prn handles this. DATA:Labs/Tests reviewed. GOAL:Maintain/improve stability. PLAN:Continue current monitoring. . 2.HTN - Hypertension STATUS:Chronic stable. Previous visit: Rec to stop Losartan and start Olmesartan 20 mg daily. Then next visit consider increase Olmesartan prn and stop HCTZ--may help BP control and hyponatremia. Do this 1 week after surgery. She si running high at home. DATA:Labs reviewed. At home 118-158/ 70s today for us = 124/70 . She is using a 2 year old cuff at home. At home she runs 130-137/ 80s HR 102 today but in 70s at home---brother is dying and she is anxious. DATA:Labs/Tests reviewed. GOAL:Maintain/improve stability. PLAN:Continue current monitoring.Hold steady for now and see what BP runs after stress with Bro is reduced. Increase K+ . 3.Health care maintenance FLU- 2022 COVID- 2022 RSV- Not yet but plans to do this Tdap- plans to get 4.Hyperlipidemia STATUS:Chronic stable. Previous visit: FLP At goal MAY 2022---then repeat MAY 2023 DATA:Labs/Tests reviewed. GOAL:Maintain/improve stability. PLAN:Continue current monitoring.FLP for JUN visit . 5.Prediabetic, prediabetes STATUS:Chronic stable. Previous visit: Ordered A1C for FU. DATA:Labs/Tests reviewed. A1C= 5.3 GOAL:Maintain/improve stability. PLAN:Continue current monitoring.A1C for APR visit . Summary: Medications: reviewed/changed/refilled _ Completed Results:_Reviewed Labs:_6 mos: Follow up visit: Return to clinic: _6 months Other activities completed this visit: Education provided (discussion, questions, etc) _ Discussed: _ Coordinate care: Primary care and _ Time spent: Pre-visit planning: _ 8 [id number] visit: _ 30 Total visit time: _ 38 *does not include time for AWV or procedure if applicable Immunizations Given and Recorded Vaccine Date Status Refusal Reason influenza virus vaccine, inactivated 1 12/14/21 Gi annabella influenza virus vaccine, inactivated 02/16/20 Ezio rded influenza virus vaccine, inactivated 02/26/19 Give n influenza virus vaccine, inactivated 01/07/18 Give n influenza virus vaccine, inactivated 01/01/17 Give n influenza virus vaccine, inactivated 12/27/15 Give n influenza virus vaccine, inactivated 01/24/15 Ezio rded influenza virus vaccine, inactivated 01/12/14 Give n influenza virus vaccine, inactivated 01/15/13 Give n influenza virus vaccine, inactivated 01/24/12 Give n SARS-CoV-2 (COVID-19) mRNA-1273 vaccine 2 02/02/21 Recorded SARS-CoV-2 (COVID-19) mRNA-1273 vaccine 05/03/20 G iven zoster vaccine, inactivated 03/22/20 Recorded zoster vaccine, inactivated 3 09/29/19 Recorded pneumococcal 13-valent vaccine 12/14/14 Given tetanus/diphtheria/pertuss, acel (Tdap) 09/30/12 G iven diphther/haemophil/pertuss,acel/tetanus 4 12/20/09 Recorded diphther/haemophil/pertuss,acel/tetanus 5 12/20/09 Recorded diphther/haemophil/pertuss,acel/tetanus 6 12/20/09 Recorded zoster vaccine live 01/06/09 Recorded pneumococcal 23-valent vaccine 10/08/08 Recorded diphtheria/pertussis, acellular/tetanus 12/21/99 R ecorded tetanus toxoids-diphtheria, Td (Adult) 7 07/25/89 Recorded 1Early/Late Reason: Early/Late Reason: Other : on time. 2Result Comment: 2021-06-12: Historical information-source unspecified 3Result Comment: Given at [facility] 4Result Comment: [07/20/2011 Uncharted] error 5Result Comment: [07/20/2011 Uncharted] error 6Result Comment: 2020-03-23: Historical information-source unspecified 7Result Comment: 2020-03-23: Historical information-source unspecified Medications Aleve Start: 07/04/12 8:44:00, See Instructions, prn Start Date: 07/04/12 Status: Ordered amLODIPine 5 mg oral tablet Start: 02/21/23 10:34:00 EST, 1 tab, PO, Daily, Disp# 30 tab, Refills: 10, Note to Pharmacy: stop Olmesartan, Pharmacy: [id number] Start Date: 02/21/23 Stop Date: 01/17/24 Status: Ordered amoxicillin 500 mg oral capsule Start: 02/27/23 8:45:00 EST, 4 cap, PO, As indicated, Disp# 12 cap, Refills: 3, one hour before dental and other procedures as directed, Pharmacy: [id number] Start Date: 02/27/23 Status: Ordered anastrozole 1 mg oral tablet Start: 07/17/19 12:51:00 EDT, 1 tab, PO, Daily Start Date: 07/17/19 Status: Ordered betamethasone dipropionate 0.05% topical cream Start: 12/25/22 11:29:00 EDT, 1 appl, topical, bid, Disp# 50 g, Refills: 3, apply to chest lesion until clear, Pharmacy: [id number] Start Date: 12/25/22 Status: Ordered Boostrix (Tdap) intramuscular suspension Start: 01/10/23 10:23:00 EDT, 0.5 mL, IM, ONCE, Disp# 0.5 mL, Pharmacy: [id number] Start Date: 01/10/23 Status: Ordered Calcium 600+D Start: 01/10/10 10:23:04 EDT, 1 tab, PO, bid, Refills: 0, current medication from another provider Start Date: 01/10/10 Status: Ordered Coenzyme Q10 Start: 01/10/10 10:23:26, 100 mg =, PO, Daily, Refills: 0, current medication from another provider Start Date: 01/10/10 Status: Ordered diclofenac 1% topical gel Start: 08/09/20 8:16:00 EDT, See Instructions, Disp# 100 g, Refills: 2, apply 1 APPLICATION TOPICALLY four times a day if needed - NOT TO EXCEED 16 GRAMS/DAY/SINGLE JOINT OF LOWER EXTREMITIES, Pharmacy: [facility] Start Date: 08/09/20 Status: Ordered diclofenac sodium 75 mg oral delayed release tablet Start: 08/08/21 8:23:00 EDT, See Instructions, Disp# 60 tab, Refills: 3, take 1 tablet by mouth twice a day with food if needed for pain, Pharmacy: [facility] Start Date: 08/08/21 Status: Ordered Efudex 5% topical cream Start: 12/07/20 10:56:00 EDT, 1 appl, topical, bid, Disp# 40 g, Refills: 0, apply to forehead,nose,and lip for 3 weeks, Pharmacy: [facility] [place] [address] Start Date: 12/07/20 Status: Ordered erythromycin 0.5% ophthalmic ointment Start: 06/01/20 12:28:00 EDT, 0.5 inch, both eyes, qid, Disp# 3.5 g, Refills: 1, Pharmacy: [facility] [place] [address] Start Date: 06/01/20 Stop Date: 06/21/20 Status: Ordered glucosamine-chondroitin 600 mg-750 mg oral tablet Start: 08/19/12 10:35:00, See Instructions, PO BID Start Date: 08/19/12 Status: Ordered hydroCHLOROthiazide 25 mg oral tablet Start: 04/25/23 10:38:00 EST, 1 tab, PO, Daily, Disp# 90 tab, Refills: 4, Pharmacy: [id number] Start Date: 04/25/23 Status: Ordered ketoconazole 2% topical cream Start: 06/21/22 11:25:00 EDT, 1 appl, topical, qhs, Disp# 60 g, Refills: 2, apply to abdomen until rash is clear, Pharmacy: [id number] Start Date: 06/21/22 Status: Ordered mometasone 0.1% topical cream Start: 10/16/18 9:21:00 EDT, 1 appl, topical, bid, Disp# 30 g, Refills: 1, apply to forehead dermatitis until clear and then as needed, Pharmacy: [facility] [place] [address] Start Date: 10/16/18 Status: Ordered multivitamin Start: 01/10/10 10:23:38, Refills: 0, current medication from another provider Start Date: 01/10/10 Status: Ordered nystatin 100,000 units/g topical powder Start: 06/21/22 11:25:00 EDT, See Instructions, Disp# 120 g, Refills: 3, apply to abdomen after shower and meticulous drying each am, Pharmacy: [facility] #[id number] Start Date: 06/21/22 Status: Ordered omega-3 polyunsaturated fatty acids 1100 mg oral delayed release capsule Start: 01/10/10 10:22:10, Refills: 0, current medication from another provider Start Date: 01/10/10 Status: Ordered pantoprazole 40 mg oral delayed release tablet Start: 04/09/23 12:24:00 EST, 1 tab, PO, Daily, Disp# 90 tab, Refills: 0, Pharmacy: [id number] Start Date: 04/09/23 Status: Ordered Pepcid 20 mg oral tablet Start: 02/09/19 13:19:00 EST, 0.5 tab, PO, Daily, Disp# 15 tab, Refills: 2, avoid eating and drinking for 10 minutes after each dose & use prn, Note to Pharmacy: replace zantac, Pharmacy: [facility] Start Date: 02/09/19 Stop Date: 05/10/19 Status: Ordered rosuvastatin 10 mg oral tablet Start: 06/25/22 16:04:00 EDT, See Instructions, Disp# 90 tab, Refills: 3, take 1 tablet by mouth atbedtime, Pharmacy: [facility] #[id number] Start Date: 06/25/22 Status: Ordered Mental Status 04/25/23 Barriers to Learning one year None evide nt Mandatory Health Literacy Documentation Yes Health Literacy Communication Barriers N ever Primary Language Brazilian Problem List Condition Confirmation Course Effective Dates Status H ealth Status Informant Allergic rhinitis due to allergen Confirmed Active Degenerative joint disease (DJD) of hip Confirmed Active Total bilirubin, elevated Confirmed Active Family history of cardiovascular disease Confirmed Active Fatigue - symptom Confirmed Active GERD Confirmed Active H/O: injury Confirmed Active Hand pain, left Confirmed Active HEADACHE Confirmed Active Hx of basal cell carcinoma Confirmed Active History of squamous cell carcinoma Confirmed Active Status post total hip replacement, right Confirmed Active Hordeolum eyelid Confirmed Active HTN - Hypertension Confirmed Active Hyperlipidemia Confirmed Active Hyponatremia Confirmed Active IT band syndrome Confirmed Active Impingement syndrome of shoulder region Confirmed Active Index finger 1 Confirmed Active Knee pain, left Confirmed Active Breast cancer, left 2 Confirmed 09/01/18 Active Neuropathy Confirmed Active OA - Osteoarthritis of joint of finger 3 Confirmed Active Osteoarthritis Confirmed Active Osteoarthrosis of the carpometacarpal joint of the thumb Confirmed Active Health care maintenance Confirmed Active Polyneuropathy Confirmed Active Prediabetic, prediabetes Confirmed Active Degenerative arthritis of knee Confirmed Active Seasonal allergies Confirmed Active Shoulder joint pain Confirmed Active Cervical strain Confirmed Active Strain of rotator cuff capsule Confirmed Active Biswas's cyst Confirmed Active Trochanteric bursitis Confirmed Active 1left 2S/P lumpectomy LEFT on SEPTEMBER 26, 2018, Chemo started NOV 04, 2018 x 4 treatments Q 3 weeks. RTX x 20treatments ending MAR 04 2019. Esther understands that treatments are expected to be curative. 3left thumb Diagnosis Diagnosis Type Effective Dates Health Status Clinical Service Informant GERD Discharge Diagnosis 04/24/23 HTN - Hypertension Discharge Diagnosis 04/24/23 Hyperlipidemia Discharge Diagnosis 04/24/23 Health care maintenance Discharge Diagnosis 04/24/23 Prediabetic, prediabetes Discharge Diagnosis 04/24/23 Body mass index [BMI] 25.0-25.9, adult Discharge Diagnosis 04/25/23 Non-Specified Procedures Procedure Date Related Diagnosis Body Site Status Shave biopsy of skin 06/21/22 Comp leted DEXA (dual energy X-ray absorptiometry) of lateral spine 1 06/05/21 Completed Colonoscopy 2 10/12/20 Completed Colonoscopy 3 10/12/20 Completed Prosthetic arthroplasty of left hip 4 12/31/19 Completed Date of last mammogram 5 08/2019 Completed Total replacement of right hip joint 06/04/19 Completed Hip replacement 06/02/19 Completed Insertion of A-port right javed bclavian vein 11/20/18 Completed Lumpectomy of left breast 09/26/18 Completed Surgery 6 09/26/18 Completed Biopsy of breast 7 08/27/18 Comple kayla Diagnostic mammogram 8 08/27/18 Co mpleted Ultrasound Guided Biopsy Left Breast 9 08/27/18 Completed Unilateral Left Digital Diag nostic Mammogram Tomosynthesis and targeted left ultrasound 10 08/26/18 Completed Mammogram 11 08/21/18 Completed Mammogram - screening 12 08/19/17 Completed Epidural steroid injection 13 08/08/17 Completed MRI of lumbar spine 14 05/08/17 Co mpleted Lower leg X-ray-right 15 05/02/17 Completed X-ray of right ankle 16 05/02/17 C ompleted EMG - Electromyography 17 02/19/17 Completed Femoral neck DEXA scan 18 01/29/17 Completed Mammogram 19 08/29/16 Completed unilateral left mammogram 20 08/22/16 Completed Mammogram - screening 21, 22, 23 08/15/16 Completed Skeletal X-ray of pelvis and hip 24 08/09/16 Completed Biswas's cyst 25 07/16/16 Completed Mammogram - screening 26 08/16/15 Completed X-ray of left knee 27 07/19/15 Com pleted Cataract extraction 28 03/02/15 Co mpleted Cataract extraction 29 02/16/15 Co mpleted Mammogram abnormal 30 01/27/15 Com pleted PAP test date 10/01/14 Completed Mammogram - screening 31 07/27/14 Completed Mammogram 32 01/27/14 Completed Abnormal mammogram 33 01/11/14 Com pleted Mammogram 34 01/05/13 Completed Right shoulder /SAD/biceps Tenotomy 10/21/12 Completed EKG-preop 09/29/12 Completed R shoulder x-ray-PSSM 07/21/12 Com pleted DEXA-Normal 35 10/16/10 Completed COLONOSCOPY 03/18/08 Completed Cardiac Cath--WNL 03/18/04 Complet ed Dermabrasion to face 03/18/02 Comp leted Stress ECHO-False Positive 05/16/01 Completed FNA RIGHT BREAST 03/18/01 Complete d Fusion Fifth Metatarsal RIGHT foot 03/18/97 Completed Right foot surgery 1995 Comple kayla BRANNON-BSO 03/18/93 Completed Dermabrasion to face 03/18/91 Comp leted RIGHT Axillary growth removed-BENIGN 03/18/52 Completed Mohs surgery Completed 1AP spine L2-L3 t-score 0.4 Forearm radius t-score -1.9 z-score 0.6 2Impression: -The entire examined colon is normal on direct and retroflexion views -No specimens collected 3COLO to cecum normal exam, no repeat colo given age 4-Degenerative joint disease with 80% eburnation. Marginal osteophytes present -Synovium: Non-specific chronic synovitis 5had routine and diagnostic. finding in suture line. 6left breast partial masectomy 7The differential is taht of invasive lobular cancer versus invasive ductal cancer 8New biopsy clips status post left breast and axillary biopsies. Path report pending 9Impression: Ultrasound-guided core needle biopsy of the left 11:00 breast mass, with clip placement. The patient will receive pathology results from her referring provider. 10Impression: ACR BI RADS CATEGORY 4: SUSPICOUS ULTRASOUND. 1. There is a persistent irregular and spiculated mass with associated clustered calcification in the 11:00 to 12:00 posterior left breast seen mammographically and on ultrasound. The largest mammographic mreasurement is 15 mm, the largest ultrasound measurement is 11.5 mm, slight differences are felt to be due to the ill-defined nature of this lesion. Further characterization with left breast ult rasound-guided core biopsy is recommended. 2. Left axillary lymph node sampling is also recommended with fine-needle aspiration and possible core biopsy, of the most prominent 33.6 mm lymph node identified in the left axilla. 11acr bi-rads category 0 : incomplete evaluation: need additional imaging evaluation left breast focal asymmetry with possible associated architectural distortion, for which additionalimagine evaluation is recommended 12WNL - 1 yr 13jennifer Gilbert - lumbar 14MULTI MIDLEVEL SPONDYLITIC CHANGES. No evidence of significant spinal or foraminal stenosis 15no acute osseous injur to right lower leg 16no acute osseous injury of right ankle 17sensory-motor axonal polyneuropathy 18Z score 1.3 - followup January 2019 19amended biopsy left breast negative for in situ & invasive carcinoma repaet 1 yr 20increasing cluster of calcifications in a linear distrubution in the left upper outer quadrant. Thecalcifications are indeterminate and stereotactic biopsy is recommended for further evaluation - Dr. Flores ordered 21there are bilateral scattered and grouped benign rim calcifications in the breasts. However, there are possible new clusters of microcalcifications in the 12:00 and upper outer middle one third of the left breast, for which additional spot magnification views are recommended. 22stereotactic guided biopsy 23benign breast tissue with microcalcifications, Negative for in Situ and invasive carcinoma 24Moderate to severe left hip osteoarthritis. No fracture or dilocation 25aspiratio 26WNL - 1yr 27exophytic bony exostosis projecting from the proximal fibula. Study of knee is otherwise negative. 28senile cataract, left eye 29senilr nuclear right eye 30lenghty report - repeat 6 months 31cluster calcifications - recheck 6 months 32New clustered microcalcifications in left breast benign. Short interval f/u recommended. 33need compression views of left breast 34No evidence of malignancy 35Repeat in 5 yearas rec : OCT 2015 Vital Signs Most recent to oldest [Reference Range]: 1 Height 164 cm (04/25/23 10:03 AM) Patient Weight 68.7 kg (04/25/23 10:03 AM) Body Mass Index 25.54 kg/m2 (04/25/23 10:03 AM) Heart Rate 102 bpm (04/25/23 10:03 AM) Respiratory Rate 18 br/min (04/25/23 10:03 AM) Blood Pressure 136/76mmHg (04/25/23 10:03 AM) Cuff Pulse Pressure 60 mmHg (04/25/23 10:03 AM) Social History Social History Type Response Tobacco Former smoker, Cigar ettes, 15 year(s). Stopped age [age] Years. 1 Smoking Status Never smoked cigaret kristan Sex Female 14 cig per day x 15 years FCM Outpt Note * MD Jami, Luis Shirley: PERFORM Event Display: FCM Outpt Note Authored Date: [id number] Chief Complaint Blood pressure check. History of Present Illness Most recent visitwith Dr. Farrell: 02/21/23 CC: FU on established problems (status = chronic): Breast CA Left, HTN, HLD, Low Na, Pre Dm Address new problems (status = acute): Concerned with BP Review of Systems Constitutional: No fever, No chills, No fatigue. Respiratory: No shortness of breath, No cough, No wheezing. Cardiovascular: No chest pain, No palpitations. Gastrointestinal: No nausea, No vomiting, No diarrhea, No abdominal pain. Neurologic:No numbness, No tingling, No headache. Physical Exam Vitals & Measurements HR:102(Monitored) RR:18 BP:136/76 SpO2:98% HT:164cm WT:68.700kg(Dosing) WT:68.7kg BMI:25.54 PHQ2 Data(Data Documented on:04/25/2023 10:02) Emotional health assessment NEGATIVE General: Alert and oriented, No acute distress. HEENT: Eyes WNL, Tympanic membranes are clear, No pharyngeal erythema, No sinus tenderness. Neck: Supple, Non-tender, No jugular venous distention, No lymphadenopathy, No thyromegaly. Respiratory: Lungs are clear to auscultation, Respirations are non-labored, Breath sounds are equal. Cardiovascular: Normal rate, Regular rhythm, No murmur, rubs or gallops. Gastrointestinal: Soft, Non-tender, Non-distended, Normal bowel sounds. Neurologic: Alert, Oriented, No focal deficits. Psychiatric: Cooperative, Appropriate mood & affect. Assessment/Plan 1.GERD STATUS:Chronic stable. Previous visit: Flaring recently and on Protonix x 4 weeks now with some improvement Her stress is high due to brother dying. She was doing well until brother got worse and GERD flared. Protonix prn handles this. DATA:Labs/Tests reviewed. GOAL:Maintain/improve stability. PLAN:Continue current monitoring. . 2.HTN - Hypertension STATUS:Chronic stable. Previous visit: Rec to stop Losartan and start Olmesartan 20 mg daily. Then next visit consider increase Olmesartan prn and stop HCTZ--may help BP control and hyponatremia. Do this 1 week after surgery. She si running high at home. DATA:Labs reviewed. At home 118-158/ 70s today for us = 124/70 . She is using a 2 year old cuff at home. At home she runs 130-137/ 80s HR 102 today but in 70s at home---brother is dying and she is anxious. DATA:Labs/Tests reviewed. GOAL:Maintain/improve stability. PLAN:Continue current monitoring.Hold steady for now and see what BP runs after stress with Brois reduced. Increase K+ . 3.Health care maintenance FLU- 2022 NOV COVID- 2022 RSV- Not yet but plans to do this Tdap- plans to get 4.Hyperlipidemia STATUS:Chronic stable. Previous visit: FLP At goal MAY 2022---then repeat MAY 2023 DATA:Labs/Tests reviewed. GOAL:Maintain/improve stability. PLAN:Continue current monitoring.FLP for APR visit . 5.Prediabetic, prediabetes STATUS:Chronic stable. Previous visit: Ordered A1C for FU. DATA:Labs/Tests reviewed. A1C= 5.3 GOAL:Maintain/improve stability. PLAN:Continue current monitoring.A1C for APR visit . Summary: Medications: reviewed/changed/refilled _Completed Results:_Reviewed Labs:_6 mos: Follow up visit: Return to clinic: _6 months Other activities completed this visit: Education provided (discussion, questions, etc) _ Discussed: _ Coordinate care: Primary care and _ Time spent: Pre-visit planning: _ 8 Iphm-[id number] visit: _ 30 Total visit time: _ 38 *does not include time for AWV or procedure if applicable Problem List/Past Medical History Ongoing Allergic rhinitis due to allergen Biswas's cyst Breast cancer, left Cervical strain Degenerative arthritis of knee Degenerative joint disease (DJD) of hip Family history of cardiovascular disease Fatigue - symptom GERD H/O: injury Hand pain, left HEADACHE Health care maintenance History of squamous cell carcinoma Hordeolum eyelid HTN - Hypertension Hx of basal cell carcinoma Hyperlipidemia Hyponatremia Impingement syndrome of shoulder region Index finger IT band syndrome Knee pain, left Neuropathy OA - Osteoarthritis of joint of finger Osteoarthritis Osteoarthrosis of the carpometacarpal joint of the thumb Polyneuropathy Prediabetic, prediabetes Seasonal allergies Shoulder joint pain Status post total hip replacement, right Strain of rotator cuff capsule Total bilirubin, elevated Trochanteric bursitis Procedure/Surgical History Shave biopsy of skin (06/21/2022)DEXA (dual energy X-ray absorptiometry) of lateral spine (06/05/2021)Colonoscopy (10/12/2020)Colonoscopy (10/12/2020)Prosthetic arthroplasty of left hip (12/31/2019)Date of last mammogram (08/2019)Total replacement of right hip joint (06/04/2019)Hip replacement (06/02/2019)Insertion of A-port right subclavian vein (11/20/2018)Surgery (09/26/2018)Lumpectomy of left breast (09/26/2018)Ultrasound Guided Biopsy Left Breast (08/27/2018)Biopsy of breast (08/27/2018)Diagnostic mammogram (08/27/2018)Unilateral Left Digital Diagnostic Mammogram Tomosynthesis and targeted left ultrasound (08/26/2018)Mammogram (08/21/2018)Mammogram - screening (08/19/2017)Epidural steroid injection (08/08/2017)MRI of lumbar spine (05/08/2017)Lower leg X-ray-right (05/02/2017)X-ray of right ankle (05/02/2017)EMG - Electromyography (02/19/2017)Femoral neck DEXA scan (01/29/2017)Mammogram (08/29/2016)unilateral left mammogram (08/22/2016)Mammogram - screening (08/15/2016)Skeletal X-ray of pelvis and hip (08/09/2016)Biswas's cyst (07/16/2016)Mammogram - screening (08/16/2015)X-ray of left knee (07/19/2015)Cataract extraction (03/02/2015)Cataract extraction (02/16/2015)Mammogram abnormal (01/27/2015)PAP test date (10/01/2014)Mammogram - screening (07/27/2014)Mammogram (01/27/2014)Abnormal mammogram (01/11/2014)Mammogram (01/05/2013)Right shoulder /SAD/biceps Tenotomy (10/21/2012)EKG-preop (09/29/2012)R shoulder x-ray-PSSM (07/21/2012)DEXA-Normal (10/16/2010)COLONOSCOPY (03/18/2008)Cardiac Cath--WNL (03/18/2004)Dermabrasion to face (03/18/2002)Stress ECHO-False Positive (05/16/2001)FNA RIGHT BREAST (03/18/2001)Fusion Fifth Metatarsal RIGHT foot (03/18/1997)Right foot surgery (1995)BRANNON-BSO (03/18/1993)Dermabrasion to face (03/18/1991)RIGHT Axillary growth removed-BENIGN (03/18/1952)Mohs surgery Medications amLODIPine(amLODIPine 5 mg oral tablet), 5 mg= 1 tab, PO, Daily, 10 refills amoxicillin(amoxicillin 500 mg oral capsule), 2000 mg= 4 cap, PO, As indicated, 3 refills anastrozole(anastrozole 1 mg oral tablet), 1 mg= 1 tab, PO, Daily betamethasone topical(betamethasone dipropionate 0.05% topical cream), 1 appl, topical, bid, 3 refills calcium-vitamin D(Calcium 600+D), 1 tab, PO, bid chondroitin-glucosamine(glucosamine-chondroitin 600 mg-750 mg oral tablet), See Instructions diclofenac(diclofenac sodium 75 mg oral delayed release tablet), See Instructions, 3 refills diclofenac topical(diclofenac 1% topical gel), See Instructions, 2 refills erythromycin ophthalmic(erythromycin 0.5% ophthalmic ointment), 0.5 inch, both eyes, qid, 1 refills famotidine(Pepcid 20 mg oral tablet), 10 mg= 0.5 tab, PO, Daily, 2 refills fluorouracil topical(Efudex 5% topical cream), 1 appl, topical, bid hydroCHLOROthiazide(hydroCHLOROthiazide 25 mg oral tablet), 25 mg= 1 tab, PO, Daily, 4 refills ketoconazole topical(ketoconazole 2% topical cream), 1 appl, topical, qhs, 2 refills mometasone topical(mometasone 0.1% topical cream), 1 appl, topical, bid, 1 refills multivitamin naproxen(Aleve), See Instructions nystatin topical(nystatin 100,000 units/g topical powder), See Instructions, 3 refills omega-3 polyunsaturated fatty acids(omega-3 polyunsaturated fatty acids 1100 mg oral delayed release capsule) pantoprazole(pantoprazole 40 mg oral delayed release tablet), 1 tab, PO, Daily rosuvastatin(rosuvastatin 10 mg oral tablet), See Instructions, 3 refills tetanus/diphth/pertuss (Tdap) adult/adol(Boostrix (Tdap) intramuscular suspension), 0.5 mL, IM, ONCE ubiquinone(Coenzyme Q10), 100 mg, PO, Daily Allergies Allergy Not found in Searchnasal congestion Macrobidnausea lisinoprilCOUGH Social History Smoking Status Never smoked cigarettes Alcohol Use:Current Type:Beer, Wine Frequency:Daily Average drinks per episode in last year:2 Employment/School Status:Retired Description:School Nurse Highest education:Post graduate degree(s) Exercise Duration (average number of minutes):120 Times per week:5-6 times/week Exercise type:Walking, Aerobics Home/Environment Lives with:Spouse Living situation:Home/Independent Nutrition/Health Type of diet:Regular Sexual Sexually active:No Substance Abuse - Denies Substance Abuse Tobacco - Denies Tobacco Use Use:Former smoker Type:Cigarettes Number of years:15 Stopped at age:[age]Years - Comments: 4 cig per day x 15 years Family History Arthritis: Mother. Cancer: Sister and Brother. Cardiovascular disease: Mother and Brother. Diabetes: Father and Brother. Heart disease: Mother. High Blood Pressure: Sister. Hyperlipidemia..: Sister. Stroke: Father and Unknown. Stroke: Father. Health Status Family Member(s) Family Member(s) Relationship: Mother, Age: 73 Years, Cause: CO Relationship: Father, Age: 86 Years, Cause: CVA Immunizations Vaccine Date Status influenza virus vaccine, inactivated 12/14/2021 Given Comments : Early/Late Reason: Other : on time. SARS-CoV-2 (COVID-19) mRNA-1273 vaccine 02/02/2021 Recorded Comments : 2021-06-12: Historical information-source unspecified SARS-CoV-2 (COVID-19) mRNA-1273 vaccine 05/03/2020 Given zoster vaccine, inactivated 03/22/2020 Recorded influenza virus vaccine, inactivated 02/16/2020 Recorded zoster vaccine, inactivated 09/29/2019 Recorded Comments : Given at [facility] influenza virus vaccine, inactivated 02/26/2019 Given influenza virus vaccine, inactivated 01/07/2018 Given influenza virus vaccine, inactivated 01/01/2017 Given influenza virus vaccine, inactivated 12/27/2015 Given influenza virus vaccine, inactivated 01/24/2015 Recorded pneumococcal 13-valent vaccine 12/14/2014 Given influenza virus vaccine, inactivated 01/12/2014 Given influenza virus vaccine, inactivated 01/15/2013 Given tetanus/diphtheria/pertuss, acel (Tdap) 09/30/2012 Given influenza virus vaccine, inactivated 01/24/2012 Given diphther/haemophil/pertuss,acel/tetanus 12/20/2009 Recorded Comments : 2020-03-23: Historical information-source unspecified zoster vaccine live 01/06/2009 Recorded pneumococcal 23-valent vaccine 10/08/2008 Recorded diphtheria/pertussis, acellular/tetanus 12/21/1999 Recorded tetanus toxoids-diphtheria, Td (Adult) 07/25/1989 Recorded Comments : 2020-03-23: Historical information-source unspecified Recommendations Health Maintenance Pending(in the next year) OverDue Adult Influenza Vaccine due09/14/22and every 1year Due Adult COVID-19 Vaccination due04/25/23Unknown Frequency Adult Social Determinants of Health Screening due04/25/23Unknown Frequency Adult Tdap/Td Vaccine due04/25/23Unknown Frequency Due In Future Medicare Annual Wellness Visit not due until06/26/23and every 1year Satisfied(in the past 1 year) Satisfied Body Mass Index on04/25/23.Satisfied by JUANJO Danielle Kyla Breast Cancer Screening on11/07/22.Satisfied by Cassidy Fernandez Diabetes Management A1c on01/08/23.Satisfied by Contributor_system, [id number] Lipid Screening on06/12/22.Satisfied by Contributor_system, [id number] Medicare Annual Wellness Visit on06/25/22.Satisfied by SYSTEM Electronic Signature on File Electronically Reviewed/Signed by: Luis Farrell MD Author Signature Dt/Tm:04/25/2023 10:43 AM Department of Family Medicine [facility] Patient Care team information Care Team Personnel Name: MD Jami, Luis Shirley Position: Physician - Family Med Member Role: Primary Care Provider Address: Address: [address] [place] [address] [place] Care Team Related Persons Name: BERNICE KELLY Address: [address] [place] [phone]
--- OUTSIDE RECORDS SUMMARY | 2023-08-05 00:32 | External Medical Summary | Continuity of Care Document ---
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 Name Role Phone Luis Farrell Primary Care Physician [phone] Encounter [facility] [id number] Date(s): 07/02/23 - 07/02/23 [facility] [address] [facility] [address] [facility], [facility] 1 [place], [phone] Encounter Diagnosis Gastro-esophageal reflux disease without esophagitis(Final) - Essential (primary) hypertension(Final) - Encounter for general adult medical examination without abnormal findings(Final) - Hyperlipidemia, unspecified(Final) - Prediabetes(Final) - Impaired glucose tolerance (oral)(Final) - Discharge Disposition: Home or Self Care Attending Physician: MD Farrell Michael P Referring Physician: MD Farrell Michael P Allergies, Adverse Reactions, Alerts Substance Reaction Severity Status lisinopril COUGH Active Keflex vaginitis Resolved Allergy Not found in Search 1 nasal congestion Active Macrobid nausea Active 1Seasonal allergies- vice principal jv Immunizations Given and Recorded Vaccine Date Status [...] Historical information-source unspecified 3Result Comment: Given at [facility] 4Result Comment: [07/20/2011 Uncharted] error 5Result Comment: [07/20/2011 Uncharted] error 6Result Comment: 2020-03-23: Historical information-source unspecified 7Result Comment: 2020-03-23: Historical information-source unspecified Medications Aleve Start: 07/04/12 8:44:00, See Instructions, prn Start Date: 07/04/12 Status: Ordered amLODIPine 5 mg oral tablet Start: 07/04/23 11:36:00 EDT, 1 tab, PO, Daily, Disp# 90 tab, Refills: 4, Pharmacy: [id number] Start Date: 07/04/23 Stop Date: 09/26/24 Status: Ordered anastrozole 1 mg oral tablet Start: 07/17/19 12:51:00 EDT, 1 tab, PO, Daily Start Date: 07/17/19 Status: Ordered betamethasone dipropionate 0.05% topical cream Start: 12/25/22 11:29:00 EDT, 1 appl, topical, bid, Disp# 50 g, Refills: 3, apply to chest lesion until clear, Pharmacy: [id number] Start Date: 12/25/22 Status: Ordered Boostrix (Tdap) intramuscular suspension Start: 01/10/23 10:23:00 EDT, 0.5 mL, IM, ONCE, Disp# 0.5 mL, Pharmacy: [id number] Start Date: 01/10/23 Status: [...] 16 GRAMS/DAY/SINGLE JOINT OF LOWER EXTREMITIES, Pharmacy: [address] Start Date: 08/09/20 Status: Ordered diclofenac sodium 75 mg oral delayed release tablet Start: 08/08/21 8:23:00 EDT, See Instructions, Disp# 60 tab, Refills: 3, take 1 tablet by mouth twice a day with food if needed for pain, Pharmacy: [address] Start Date: 08/08/21 Status: Ordered Efudex 5% topical cream Start: 12/07/20 10:56:00 EDT, 1 appl, topical, bid, Disp# 40 g, Refills: 0, apply to forehead,nose,and lip for 3 weeks, Pharmacy: [address] Start Date: 12/07/20 Status: Ordered erythromycin 0.5% ophthalmic ointment Start: 06/01/20 12:28:00 EDT, 0.5 inch, both eyes, qid, Disp# 3.5 g, Refills: 1, Pharmacy: [address] Start Date: 06/01/20 Stop Date: 06/21/20 Status: Ordered glucosamine-chondroitin 600 mg-750 mg oral tablet Start: 08/19/12 10:35:00, See Instructions, PO BID Start Date: 08/19/12 Status: Ordered hydroCHLOROthiazide 25 mg oral tablet Start: 04/25/23 10:38:00 EST, 1 tab, PO, Daily, Disp# 90 tab, Refills: 4, Pharmacy: [id number] Start Date: 04/25/23 Status: Ordered ketoconazole 2% topical cream Start: 06/21/22 11:25:00 EDT, 1 appl, topical, qhs, Disp# 60 g, Refills: 2, apply to abdomen until rash is clear, Pharmacy: [id number] Start Date: 06/21/22 Status: Ordered mometasone 0.1% topical cream Start: 10/16/18 9:21:00 EDT, 1 appl, topical, bid, Disp# 30 g, Refills: 1, apply to forehead dermatitis until clear and then as needed, Pharmacy: [facility] [place] [address] Start Date: 10/16/18 Status: Ordered multivitamin Start: 01/10/10 10:23:38, Refills: 0, current medication from another provider Start Date: 01/10/10 Status: Ordered nystatin 100,000 units/g topical powder Start: 06/21/22 11:25:00 EDT, See Instructions, Disp# 120 g, Refills: 3, apply to abdomen after shower and meticulous drying each am, Pharmacy: [facility] #[id number] Start Date: 06/21/22 Status: Ordered omega-3 polyunsaturated fatty acids 1100 mg oral delayed release capsule Start: 01/10/10 10:22:10, Refills: 0, current medication from another provider Start Date: 01/10/10 Status: Ordered pantoprazole 40 mg oral delayed release tablet Start: 04/09/23 12:24:00 EST, 1 tab, PO, Daily, Disp# 90 tab, Refills: 0, Pharmacy: [id number] Start Date: 04/09/23 Status: Ordered Pepcid 20 mg oral tablet Start: 02/09/19 13:19:00 EST, 0.5 tab, PO, Daily, Disp# 15 tab, Refills: 2, avoid eating and drinking for 10 minutes after each dose & use prn, Note to Pharmacy: replace zantac, [facility]: [id number] Start Date: 02/09/19 Stop Date: 05/10/19 Status: Ordered rosuvastatin 10 mg oral tablet Start: 07/04/23 11:34:00 EDT, See Instructions, Disp# 90 tab, Refills: 4, take 1 tablet by mouth atbedtime, Pharmacy: [id number] Start Date: 07/04/23 Status: Ordered Problem List Condition Confirmation Course Effective Dates Status H ealth Status Informant Allergic rhinitis due to allergen Confirmed Active Degenerative joint disease (DJD) of hip Confirmed Active Total bilirubin, elevated Confirmed Active Family history of cardiovascular disease Confirmed Active GERD Confirmed Active Hx of basal cell carcinoma [...] knee Confirmed Active Seasonal allergies Confirmed Active Cervical strain Confirmed Active Strain of rotator cuff capsule Confirmed Active Biswas's cyst Confirmed Active Trochanteric bursitis Confirmed Active 1left 2S/P lumpectomy LEFT on SEPTEMBER 26, 2018, Chemo started NOV 04, 2018 x 4 treatments Q 3 weeks. RTX x 20treatments ending MAR 04 2019. Esther understands that treatments are expected to be curative. 3left thumb Procedures Procedure Date Related Diagnosis Body Site [...] in 5 yearas rec : OCT 2015 Results Laboratory List Name Date Comprehensive Metabolic Panel (COMP META B PANEL) 07/02/23 Hemoglobin A1C (HEMOGLOBIN, A1C) 07/02/23 Lipid Profile (LIPOPROTEINS) 07/02/23 Most recent to oldest [Reference Range]: 1 eGFR CKD-EPI [>60 mL/min/1.73 m2] 70 mL/ min/1.73 m2 (07/02/23 8:11 AM) Estimated Average Glucose 117 mg/dL (07/02/23 8:11 AM) Non-HDL 100 mg/dL (07/02/23 8:11 AM) Estimated CrCl 51.51 mL/min (07/02/23 3:52 PM) Anion Gap [5-14 mmol/L] 11 mmol/L (07/02/23 8:11 AM) Alb [3.5-5.2 g/dL] 4.3 g/dL (07/02/23 8:11 AM) Alk Phos [35-115 unit/L] 76 unit/L 1 (07/02/23 8:11 AM) ALT [0-33 unit/L] 23 unit/L (07/02/23 8:11 AM) AST [0-32 unit/L] 24 unit/L (07/02/23 8:11 AM) BUN [6-23 mg/dL] 11 mg/dL (07/02/23 8:11 AM) Ca [8.4-10.2 mg/dL] 9.4 mg/dL (07/02/23 8:11 AM) Chol/HDL 2 (07/02/23 8:11 AM) Chol [<200 mg/dL] 181 mg/dL (07/02/23 8:11 AM) Cl- [98-107 mmol/L] 96 mmol/L *LOW* (07/02/23 8:11 AM) HCO3 [22-29 mmol/L] 27 mmol/L (07/02/23 8:11 AM) Cret [0.60-1.00 mg/dL] 0.84 mg/dL (07/02/23 8:11 AM) HbA1c [<5.7 %] 5.7 % 2 *HI* (07/02/23 8:11 AM) Glu [74-109 mg/dL] 106 mg/dL 3 (07/02/23 8:11 AM) HDL [>40 mg/dL] 81 mg/dL (07/02/23 8:11 AM) K [3.5-5.1 mmol/L] 4.1 mmol/L (07/02/23 8:11 AM) LDL Chol, Calculated [50-130 mg/dL] 90 m g/dL (07/02/23 8:11 AM) Na [136-145 mmol/L] 134 mmol/L *LOW* (07/02/23 8:11 AM) T Bili [0.0-1.2 mg/dL] 1.1 mg/dL (07/02/23 8:11 AM) Prot [6.4-8.3 g/dL] 7.1 g/dL (07/02/23 8:11 AM) TG [<150 mg/dL] 50 mg/dL (07/02/23 8:11 AM) 1Result Comment: Low levels of ALKP may indicate a deficiency in zinc, magnesium, or malnutritionbutcan also be an indicator of a rare genetic disease hypophosphatasia (HPP). 2Result Comment: ADA Recommended [place] Reference Range: Normal: <5.7% Prediabetes: 5.7-6.4% Diabetes: >6.4% 3Result Comment: ADA recommendation for FASTING Serum/Plasma Glucose: Normal: 70-100 mg/dL Prediabetes: 100-125 mg/dL Diabetes: 126 mg/dL or higher Social History Social History Type Response Tobacco Former smoker, Cigar ettes, 13 year(s). Stopped age [age] Years. 1 Smoking Status Never smoked cigaret kristan Sex Female 14 cig per day x 15 years Patient Care team information Care Team Personnel Name: MD Jami, Luis Shirley Position: Physician - Family Med Member Role: Primary Care Provider Address: Address: [address] [place] [id number] Care Team Related Persons Name: BERNICE KELLY Address: [address] [place] [id number]
--- OUTSIDE RECORDS SUMMARY | 2023-08-05 00:32 | External Medical Summary | Continuity of Care Document ---
Author Name Unknown Organization [place] [address] [place] [phone] Care Team Providers Care Communications Billing Analyst Name Role Phone Luis Farrell Primary Care Physician [phone] [facility] [id number] Date(s): 02/21/23 - 02/21/23 [facility] [address] [facility] [address] [place] [address] [phone] Encounter Diagnosis HTN - Hypertension(Discharge Diagnosis) - 02/20/23 Health care maintenance(Discharge Diagnosis) - 02/20/23 Hyperlipidemia(Discharge Diagnosis) - 02/20/23 Prediabetic, prediabetes(Discharge Diagnosis) - 02/20/23 Body mass index [BMI] 25.0-25.9, adult(Discharge Diagnosis) - 02/21/23 GERD(Discharge Diagnosis) - 02/21/23 Discharge Disposition: Home or Self Care Attending Physician: MD Farrell Michael P Allergies, Adverse Reactions, Alerts Substance Reaction Severity Status lisinopril COUGH Active Keflex vaginitis Resolved Allergy Not found in Search 1 nasal congestion Active Macrobid nausea Active 1Seasonal allergies- inpatient services rn jv Assessment and Plan Extracted from: Title:Office Visit Note Author:MD Jami, Anthony Shirley Date:02/21/23 1.HTN - Hypertension STATUS:Chronic UNstable. Last visit: Rec to stop Losartan and start Olmesartan 20 mg daily. Then next visit consider increase Olmsartan prn and stop HCTZ--may help BP control and hyponatremia. Do this 1 week after surgery. She si running high at home. DATA:Labs reviewed. At home 118-158/ 70s today for us = 124/70 . She is using a 2 year old cuff at home. Husbands BP is ok. GOAL:Maintain stability. PLAN:Cont current monitoring. . 2.Health care maintenance FLU- Done COVID rec first Tdap get maynor RSV Recommended after COVID 3.Hyperlipidemia STATUS:Chronic stable. DATA:Labs reviewed. GOAL:Maintain stability. PLAN:Cont current monitoring. FLP At goal MAY 2022---then repeat MAY 2023 . 4.Prediabetic, prediabetes STATUS:Chronic stable. DATA:Labs reviewed. A1C is due GOAL:Maintain stability. PLAN:Cont current monitoring. Ordered A1C for FU. . 5.GERD STATUS:Chronic Flairing recently and on protonix x 4 weeks now with some imprvement DATA:Labs reviewed. GOAL:Maintain stability. PLAN:Cont current monitoring. . Summary: Medications: reviewed/changed/refilled _ Completed Results:_Reviewed Labs:_6 mos: FLP, A1C, CMP Follow up visit: Return to clinic: _6 months Other activities completed this visit: Education provided (discussion, questions, etc) _ Discussed: _ side effects of Olmesartan Coordinate care: Primary care and _ Time spent: Pre-visit planning: _10 Mkco-[id number]-dwhe visit: _25 Total visit time: _ 35 *does not include time for AWV or [...] Give n influenza virus vaccine, inactivated 01/24/15 Ezoi rded influenza virus vaccine, inactivated 01/12/14 Give [...] Historical information-source unspecified 3Result Comment: Given at [facility] 4Result Comment: [07/20/2011 Uncharted] error 5Result Comment: [07/20/2011 Uncharted] error 6Result Comment: 2020-03-23: Historical information-source unspecified 7Result Comment: 2020-03-23: Historical information-source unspecified Medications Aleve Start: 07/04/12 8:44:00, See Instructions, prn Start Date: 07/04/12 Status: Ordered amLODIPine 5 mg oral tablet Start: 02/21/23 10:34:00 EST, 1 tab, PO, Daily, Disp# 30 tab, Refills: 10, Note to Pharmacy: stop Olmesartan, Pharmacy: [facility] #[id number] Start Date: 02/21/23 Stop Date: 01/17/24 Status: Ordered amoxicillin 500 mg oral capsule Start: 01/16/22 9:35:00 EDT, 4 cap, PO, As indicated, Disp# 12 cap, Refills: 3, one hour before dental and other procedures as directed, Pharmacy: [facility] #[id number] Start Date: 01/16/22 Status: Ordered anastrozole 1 mg oral tablet Start: 07/17/19 12:51:00 EDT, 1 tab, PO, Daily Start Date: 07/17/19 Status: Ordered betamethasone dipropionate 0.05% topical cream Start: 12/25/22 11:29:00 EDT, 1 appl, topical, bid, Disp# 50 g, Refills: 3, apply to chest lesion until clear, Pharmacy: [facility] #[id number] Start Date: 12/25/22 Status: Ordered Boostrix (Tdap) intramuscular suspension Start: 01/10/23 10:23:00 EDT, 0.5 mL, IM, ONCE, Disp# 0.5 mL, Pharmacy: [facility] #[id number] Start Date: 01/10/23 Status: [...] 16 GRAMS/DAY/SINGLE JOINT OF LOWER EXTREMITIES, Pharmacy: [address] Start Date: 08/09/20 Status: Ordered diclofenac sodium 75 mg oral delayed release tablet Start: 08/08/21 8:23:00 EDT, See Instructions, Disp# 60 tab, Refills: 3, take 1 tablet by mouth twice a day with food if needed for pain, Pharmacy: [address] Start Date: 08/08/21 Status: Ordered Efudex 5% topical cream Start: 12/07/20 10:56:00 EDT, 1 appl, topical, bid, Disp# 40 g, Refills: 0, apply to forehead,nose,and lip for 3 weeks, Pharmacy: [address] Start Date: 12/07/20 Status: Ordered erythromycin 0.5% ophthalmic ointment Start: 06/01/20 12:28:00 EDT, 0.5 inch, both eyes, qid, Disp# 3.5 g, Refills: 1, Pharmacy: [address] Start Date: 06/01/20 Stop Date: 06/21/20 Status: Ordered glucosamine-chondroitin 600 mg-750 mg oral tablet Start: 08/19/12 10:35:00, See Instructions, PO BID Start Date: 08/19/12 Status: Ordered hydroCHLOROthiazide 12.5 mg oral tablet Start: 06/25/22 16:04:00 EDT, See Instructions, Disp# 90 tab, Refills: 3, take 1 tablet by mouth every morning, Pharmacy: [facility] #[id number] Start Date: 06/25/22 Status: Ordered ketoconazole 2% topical cream Start: 06/21/22 11:25:00 EDT, 1 appl, topical, qhs, Disp# 60 g, Refills: 2, apply to abdomen until rash is clear, Pharmacy: [facility] #[id number] Start Date: 06/21/22 Status: Ordered mometasone 0.1% topical cream Start: 10/16/18 9:21:00 EDT, 1 appl, topical, bid, Disp# 30 g, Refills: 1, apply to forehead dermatitis until clear and then as needed, Pharmacy: [facility] Start Date: 10/16/18 Status: Ordered multivitamin Start: 01/10/10 10:23:38, Refills: 0, current medication from another provider Start Date: 01/10/10 Status: Ordered nystatin 100,000 units/g topical powder Start: 06/21/22 11:25:00 EDT, See Instructions, Disp# 120 g, Refills: 3, apply to abdomen after shower and meticulous drying each am, Pharmacy: [facility] #[id number] Start Date: 06/21/22 Status: Ordered omega-3 polyunsaturated fatty acids 1100 mg oral delayed release capsule Start: 01/10/10 10:22:10, Refills: 0, current medication from another provider Start Date: 01/10/10 Status: Ordered pantoprazole 40 mg oral delayed release tablet Start: 01/10/23 10:24:00 EDT, See Instructions, Disp# 90 tab, Refills: 0, take 1 tablet by mouth once daily, Pharmacy: [facility] #[id number] Start Date: 01/10/23 Status: Ordered Pepcid 20 mg oral tablet Start: 02/09/19 13:19:00 EST, 0.5 tab, PO, Daily, Disp# 15 tab, Refills: 2, avoid eating and drinking for 10 minutes after each dose & use prn, Note to Pharmacy: replace zantac, Pharmacy: [facility] Start Date: 02/09/19 Stop Date: 05/10/19 Status: Ordered rosuvastatin 10 mg oral tablet Start: 06/25/22 16:04:00 EDT, See Instructions, Disp# 90 tab, Refills: 3, take 1 tablet by mouth atbedtime, Pharmacy: [facility] #[id number] Start Date: 06/25/22 Status: Ordered Mental Status 02/21/23 Barriers to Learning one year None evide nt Mandatory Health Literacy Documentation Yes Health Literacy Communication Barriers N ever Primary Language Mauritanian Problem List Condition Confirmation Course Effective Dates [...] Effective Dates Health Status Clinical Service Informant Health care maintenance Discharge Diagnosis 02/20/23 Hyperlipidemia Discharge Diagnosis 02/20/23 HTN - Hypertension Discharge Diagnosis 02/20/23 Prediabetic, prediabetes Discharge Diagnosis 02/20/23 Body mass index [BMI] 25.0-25.9, adult Discharge Diagnosis 02/21/23 Non-Specified GERD Discharge Diagnosis 02/21/23 Procedures Procedure Date Related Diagnosis Body Site [...] RIGHT foot 03/18/97 Completed Right foot surgery 1996 Comple kayla BRANNON-BSO 03/18/93 Completed Dermabrasion to [...] recent to oldest [Reference Range]: 1 Height 165 cm (02/21/23 9:59 AM) Patient Weight 68.5 kg (02/21/23 9:59 AM) Body Mass Index 25.16 kg/m2 (02/21/23 9:59 AM) Heart Rate 102 bpm (02/21/23 9:59 AM) Respiratory Rate 18 br/min (02/21/23 9:59 AM) Blood Pressure 124/70mmHg (02/21/23 9:59 AM) Cuff Pulse Pressure 54 mmHg (02/21/23 9:59 AM) Social History Social History Type Response Tobacco Former smoker, Cigar ettes, 15 year(s). Stopped age [age] Years. 1 Smoking Status Former Smoker, quit > 1 yr Sex Female 14 cig per day x 15 years FCM Outpt Note * MD Jami, Luis Shirley: PERFORM Event Display: FCM Outpt Note Authored Date: [id number] Chief Complaint 4 week f/u for BP. BP running higher at home. Cough since around time starting new Rx- did have cold around same time so unsure if due to Rx or still from cold. History of Present Illness Most recent visitwith Dr. Farrell: 01/10/23 CC: FU on established problems (status = chronic): Breast CA Left, HTN, HLD, Low Na, Pre Dm Address new problems (status = acute): She started a cough after starting olmesartan and also had vomiting for a day and resolved day after TG. She would like to change Olmesartan. Review of Systems Constitutional: No fever, No chills, No fatigue. Respiratory: No shortness of breath, No cough, No wheezing. Cardiovascular: No chest pain, No palpitations. Gastrointestinal: No nausea, No vomiting, No diarrhea, No abdominal pain. Neurologic:No numbness, No tingling, No headache. Physical Exam Vitals & Measurements HR:102(Monitored) RR:18 BP:124/70 SpO2:98% HT:165cm WT:68.5kg WT:68.500kg(Dosing) BMI:25.16 PHQ2 Data(Data Documented on:02/21/2023 09:57) Emotional health assessment NEGATIVE General: Alert and [...] Psychiatric: Cooperative, Appropriate mood & affect. Assessment/Plan 1.HTN - Hypertension STATUS:Chronic UNstable. Last visit: Rec to stop Losartan and start Olmesartan 20 mg daily. Then next visit consider increase Olmsartan prn and stop HCTZ--may help BP control and hyponatremia. Do this 1 week after surgery. She si running high at home. DATA:Labs reviewed. At home 118-158/ 70s today for us = 124/70 . She is using a 2 year old cuff at home. Husbands BP is ok. GOAL:Maintain stability. PLAN:Cont current monitoring. . 2.Health care maintenance FLU- Done COVID rec first Tdap get maynor RSV Recommended after COVID 3.Hyperlipidemia STATUS:Chronic stable. DATA:Labs reviewed. GOAL:Maintain stability. PLAN:Cont current monitoring. FLP At goal MAY 2022---then repeat MAY 2023 . 4.Prediabetic, prediabetes STATUS:Chronic stable. DATA:Labs reviewed. A1C is due GOAL:Maintain stability. PLAN:Cont current monitoring. Ordered A1C for FU. . 5.GERD STATUS:Chronic Flairing recently and on protonix x 4 weeks now with some imprvement DATA:Labs reviewed. GOAL:Maintain stability. PLAN:Cont current monitoring. . Summary: Medications: reviewed/changed/refilled _Completed Results:_Reviewed Labs:_6 mos: FLP, A1C, CMP Follow up visit: Return to clinic: _6 months Other activities completed this visit: Education provided (discussion, questions, etc) _ Discussed: _ side effects of Olmesartan Coordinate care: Primary care and _ Time spent: Pre-visit planning: _10 Zljw-sg-prao visit: _25 Total visit time: _ 35 *does not include time for AWV or [...] topical cream), 1 appl, topical, bid hydroCHLOROthiazide(hydroCHLOROthiazide 12.5 mg oral tablet), See Instructions, 3 refills ketoconazole topical(ketoconazole 2% topical cream), 1 appl, topical, qhs, 2 refills mometasone topical(mometasone 0.1% topical cream), 1 appl, topical, bid, 1 refills multivitamin naproxen(Aleve), See Instructions nystatin topical(nystatin 100,000 units/g topical powder), See Instructions, 3 refills omega-3 polyunsaturated fatty acids(omega-3 polyunsaturated fatty acids 1100 mg oral delayed release capsule) pantoprazole(pantoprazole 40 mg oral delayed release tablet), See Instructions rosuvastatin(rosuvastatin 10 mg oral tablet), See Instructions, 3 refills tetanus/diphth/pertuss (Tdap) adult/adol(Boostrix (Tdap) intramuscular suspension), 0.5 mL, IM, ONCE ubiquinone(Coenzyme Q10), 100 mg, PO, Daily Allergies Allergy Not found in Searchnasal congestion Macrobidnausea lisinoprilCOUGH Social History Smoking Status Former Smoker, quit > 1 yr Alcohol Use:Current Type:Beer, Wine Frequency:Daily Average drinks [...] High Blood Pressure: Sister. Hyperlipidemia..: Sister. Stroke: Father. Stroke: Father and Unknown. Health Status Family Member(s) Family Member(s) Relationship: Mother, Age: 73 Years, Cause: [place] Relationship: Father, Age: 86 Years, Cause: CVA Immunizations Vaccine Date Status influenza virus vaccine, inactivated 12/14/2021 Given Comments : Early/Late Reason: Other : on time. SARS-CoV-2 (COVID-19) mRNA-1273 vaccine 02/02/2021 Recorded Comments : 2021-06-12: Historical information-source unspecified SARS-CoV-2 (COVID-19) mRNA-1273 vaccine 05/03/2020 Given zoster vaccine, inactivated 03/22/2020 Recorded influenza virus vaccine, inactivated 02/16/2020 Recorded zoster vaccine, inactivated 09/29/2019 Recorded Comments : Given at [facility] influenza virus vaccine, inactivated 02/26/2019 Given [...] the next year) OverDue Adult Influenza Vaccine due09/15/22and every 1year Due Adult COVID-19 Vaccination due02/21/23Unknown Frequency Adult Tdap/Td Vaccine due02/21/23Unknown Frequency Due In Future Medicare Annual Wellness Visit not due until06/26/23and every 1year Satisfied(in the past 1 year) Satisfied Body Mass Index on02/21/23.Satisfied by JUANJO Vincent Vanessa T Breast Cancer Screening on11/07/22.Satisfied by Cassidy Fernandez Diabetes Management A1c on01/08/23.Satisfied by Contributor_system, [email or web address] Lipid Screening on06/12/22.Satisfied by Contributor_system, [email or web address] Medicare Annual Wellness Visit on06/25/22.Satisfied by SYSTEM Electronic Signature on File Electronically Reviewed/Signed by: Luis Farrell MD Author Signature Dt/Tm:02/21/2023 10:58 AM Department of Family Medicine [facility] Patient Care team information Care Team Personnel Name: MD Jami, Luis Shirley Position: Physician - Family Med Member Role: Primary Care Provider Address: Address: [facility] [address] [address] Care Team Related Persons Name: BERNICE KELLY Address: home [address] [place] [address] SUDHIR SAUCEDO [phone]
--- OUTSIDE RECORDS SUMMARY | 2023-08-05 00:32 | External Medical Summary | Continuity of Care Document ---
Author Name Unknown Organization [facility] [address] [facility] [address] [id number] Care Team Providers Care Management Supervisor Name Role Phone Luis Farrell Primary Care Physician [phone] Encounter [facility] [id number] Date(s): 07/11/23 - 07/11/23 [facility] [address] [place] [address] [phone] Encounter Diagnosis AK (actinic keratosis)(Discharge Diagnosis) - 07/11/23 History of squamous cell carcinoma of skin(Discharge Diagnosis) - 07/11/23 Seborrheic keratoses(Discharge Diagnosis) - 07/11/23 Discharge Disposition: Home or Self Care Attending Physician: MD Wallace Thomas A Allergies, Adverse Reactions, Alerts Substance Reaction Severity Status lisinopril COUGH Active Keflex vaginitis Resolved Allergy Not found in Search 1 nasal congestion Active Macrobid nausea Active 1Seasonal allergies- tnt line supervisor jv Assessment and Plan Extracted from: Title:Clinical Document Author:MD Rodrigo, Giancarlo Schwarz Date:07/11/23 OUTPATIENT NOTE Name: ESTHER DAVIDSON Patient Number:1 [id number] : 1945 Date of Service: 07/11/2023 _ Esther Davidson returns for reevaluation. 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 Keratotic papules were treated on the left lateral supraorbital area and 2 on the right forehead as actinic keratoses with cryotherapy with patient consent. Side effects were discussed. Irritated seborrheic keratosis 10 mm in diameter left lateral neck was treated with cryotherapy with patient consent. Review of systems medications allergies as noted on the chart. The patient is in good health. She is looking forward to gardening. Examination reveals pleasant well-nourished white female with type II skin who is alert and oriented x 3 with normal mood and affect. Examination of the head, neck, back, chest, arms, hands, fingers, legs, feet, toes reveals numerous lentigines in sun exposed areas particularly on the arms and legs, multiple seborrheic keratoses particularly on the back and the findings noted above. No sign of recurrent squamous cell carcinoma. Examination is otherwise unremarkable. The patient will return in 6 months for reevaluation. Immunizations Given and Recorded Vaccine Date Status [...] Historical information-source unspecified 3Result Comment: Given at [facility] 4Result Comment: [07/20/2011 Uncharted] error 5Result Comment: [07/20/2011 Uncharted] error 6Result Comment: 2020-03-23: Historical information-source unspecified 7Result Comment: 2020-03-23: Historical information-source unspecified Medications Aleve Start: 07/04/12 8:44:00, See Instructions, prn Start Date: 07/04/12 Status: Ordered amLODIPine 5 mg oral tablet Start: 07/04/23 11:36:00 EDT, 1 tab, PO, Daily, Disp# 90 tab, Refills: 4, Pharmacy: [facility] #[id number] Start Date: 07/04/23 Stop Date: 09/26/24 Status: Ordered anastrozole 1 mg oral tablet Start: 07/17/19 12:51:00 EDT, 1 tab, PO, Daily Start Date: 07/17/19 Status: Ordered betamethasone dipropionate 0.05% topical cream Start: 12/25/22 11:29:00 EDT, 1 appl, topical, bid, Disp# 50 g, Refills: 3, apply to chest lesion until clear, Pharmacy: [facility][id number] Start Date: 12/25/22 Status: Ordered Boostrix (Tdap) intramuscular suspension Start: 01/10/23 10:23:00 EDT, 0.5 mL, IM, ONCE, Disp# 0.5 mL, Pharmacy: [facility][id number] Start Date: 01/10/23 Status: Ordered [...] 16 GRAMS/DAY/SINGLE JOINT OF LOWER EXTREMITIES, Pharmacy: [address] Start Date: 08/09/20 Status: Ordered diclofenac sodium 75 mg oral delayed release tablet Start: 08/08/21 8:23:00 EDT, See Instructions, Disp# 60 tab, Refills: 3, take 1 tablet by mouth twice a day with food if needed for pain, Pharmacy: [address] Start Date: 08/08/21 Status: Ordered Efudex 5% topical cream Start: 12/07/20 10:56:00 EDT, 1 appl, topical, bid, Disp# 40 g, Refills: 0, apply to forehead,nose,and lip for 3 weeks, Pharmacy: [address] Start Date: 12/07/20 Status: Ordered erythromycin 0.5% ophthalmic ointment Start: 06/01/20 12:28:00 EDT, 0.5 inch, both eyes, qid, Disp# 3.5 g, Refills: 1, Pharmacy: [address] Start Date: 06/01/20 Stop Date: 06/21/20 Status: Ordered glucosamine-chondroitin 600 mg-750 mg oral tablet Start: 08/19/12 10:35:00, See Instructions, PO BID Start Date: 08/19/12 Status: Ordered hydroCHLOROthiazide 25 mg oral tablet Start: 04/25/23 10:38:00 EST, 1 tab, PO, Daily, Disp# 90 tab, Refills: 4, Pharmacy: [id number] Start Date: 04/25/23 Status: Ordered ketoconazole 2% topical cream Start: 06/21/22 11:25:00 EDT, 1 appl, topical, qhs, Disp# 60 g, Refills: 2, apply to abdomen until rash is clear, Pharmacy: [facility] #[id number] Start Date: 06/21/22 Status: Ordered mometasone 0.1% topical cream Start: 10/16/18 9:21:00 EDT, 1 appl, topical, bid, Disp# 30 g, Refills: 1, apply to forehead dermatitis until clear and then as needed, Pharmacy: [address] Start Date: 10/16/18 Status: Ordered multivitamin Start: 01/10/10 10:23:38, Refills: 0, current medication from another provider Start Date: 01/10/10 Status: Ordered nystatin 100,000 units/g topical powder Start: 06/21/22 11:25:00 EDT, See Instructions, Disp# 120 g, Refills: 3, apply to abdomen after shower and meticulous drying each am, Pharmacy: [facility] #[id number] Start Date: 06/21/22 Status: Ordered omega-3 polyunsaturated fatty acids 1100 mg oral delayed release capsule Start: 01/10/10 10:22:10, Refills: 0, current medication from another provider Start Date: 01/10/10 Status: Ordered pantoprazole 40 mg oral delayed release tablet Start: 07/12/23 12:08:00 EDT, 1 tab, PO, Daily, Disp# 90 tab, Refills: 0, Pharmacy: [id number] Start Date: 07/12/23 Status: Ordered Pepcid 20 mg oral tablet Start: 02/09/19 13:19:00 EST, 0.5 tab, PO, Daily, Disp# 15 tab, Refills: 2, avoid eating and drinking for 10 minutes after each dose & use prn, Note to Pharmacy: replace zantac, Pharmacy: [id number] Start Date: 02/09/19 Stop Date: 05/10/19 Status: Ordered rosuvastatin 10 mg oral tablet Start: 07/04/23 11:34:00 EDT, See Instructions, Disp# 90 tab, Refills: 4, take 1 tablet by mouth atbedtime, Pharmacy: [id number] Start Date: 07/04/23 Status: Ordered [...] Effective Dates Health Status Clinical Service Informant AK (actinic keratosis) Discharge Diagnosis 07/11/23 History of squamous cell carcinoma of skin Discharge Diagnosis 07/11/23 Seborrheic keratoses Discharge Diagnosis 07/11/23 Procedures Procedure Date Related Diagnosis Body Site [...] in 5 yearas rec : OCT 2015 Social History Social History Type Response Tobacco Former smoker, Cigar ettes, 15 year(s). Stopped age [age] Years. 1 Smoking Status Never smoked cigaret kristan Sex Female 14 cig per day x 15 years Outpatient Note * MD Rodrigo, Jaiden Schwarz: PERFORM Event Display: .Outpt Note Authored Date: OUTPATIENT NOTE Name: ESTHER DAVIDSON Patient Number:1 [id number] : 1945 Date of Service: 07/11/2023 _ Esther Davidson returns for reevaluation. 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 Keratotic papules were treated on the left lateral supraorbital area and 2 on the right forehead as actinic keratoses with cryotherapy with patient consent. Side effects were discussed. Irritated seborrheic keratosis 10 mm in diameter left lateral neck was treated with cryotherapy with patient consent. Review of systems medications allergies as noted on the chart. The patient is in good health. She is looking forward to gardening. Examination reveals pleasant well-nourished white female with type II skin who is alert and oriented x 3 with normal mood and affect. Examination of the head, neck, back, chest, arms, hands, fingers,legs, feet, toes reveals numerous lentigines in sun exposed areas particularly on the arms and legs, multiple seborrheic keratoses particularly on the back and the findings noted above. No sign of recurrent squamous cell carcinoma. Examination is otherwise unremarkable. The patient will return in 6 months for reevaluation. Electronic Signature on File Electronically Reviewed/Signed by: Jaiden Wallace MD Author Signature Dt/Tm:07/11/2023 01:35 PM Department of Dermatology [facility] Patient Care team information Care Team Personnel Name: MD Farrell Michael P Position: Physician - Family Med Member Role: Primary Care Provider Address: Address: [address] [place] [id number] Care Team Related Persons Name: BERNICE DAVIDSON Address: home [address] [place] [address] SUDHIR SAUCEDO [phone]
--- OUTSIDE RECORDS SUMMARY | 2023-08-05 00:32 | External Medical Summary | Continuity of Care Document ---
Author Name Unknown Organization [address] [place] [phone] Care Team Providers Care Layout Man Name Role Phone Luis Farrell Primary Care Physician [phone] [phone] Date(s): 07/04/23 - 07/04/[address] [facility] 0 [facility] 207 [facility] [address] [facility] [address] [place] [address] [phone] Encounter Diagnosis Breast cancer, left(Discharge Diagnosis) - 07/03/23 HTN - Hypertension(Discharge Diagnosis) - 07/03/23 Hyperlipidemia(Discharge Diagnosis) - 07/03/23 Prediabetic, prediabetes(Discharge Diagnosis) - 07/03/23 Body mass index [BMI] 24.0-24.9, adult(Discharge Diagnosis) - 07/04/23 Discharge Disposition: Home or Self Care Attending Physician: MD Farrell Michael P Allergies, Adverse Reactions, Alerts Substance Reaction Severity Status lisinopril COUGH Active Keflex vaginitis Resolved Macrobid nausea Active Allergy Not found in Search 1 nasal congestion Active 1Seasonal allergies- overlock waistline joiner jv Assessment and Plan Extracted from: Title:Office Visit Note Author:MD Jami, Anthony Shirley Date:07/04/23 1.Breast cancer, left STATUS:Chronic stable. 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 GOAL:Maintain/improve stability. PLAN:Continue current monitoring. FU with Dr Gould annually in NOV. Cont Anastrozole x 5 years total ( 2024). Barbara LÓPEZ with Maribel Warner at [facility]. . 2.HTN - Hypertension STATUS:Chronic stable. Previous visit: Hold steady for now and see what BP runs after stress with Bro is reduced. Increase K+.Rec to stop Losartan and start Olmesartan 20 mg daily. Then next visit consider increase Olmsartan prn and stop HCTZ--may help BP control and hyponatremia. Currently on HCTZ 25 mg. DATA:Labs/Tests reviewed. BP= 120/70- 130s/ 70 GOAL:Maintain/improve stability. PLAN:Continue current monitoring.Cont same . . 3.Hyperlipidemia STATUS:Chronic stable. Previous visit: FLP At goal MAY 2022---then repeat MAY 2023 DATA:Labs/Tests reviewed. LDL= 90 GOAL:Maintain/improve stability. PLAN:Continue current monitoring.LIPID 1 year . 4.Prediabetic, prediabetes STATUS:Chronic stable. Previous visit: A1C for JUN visit DATA:Labs/Tests reviewed. A1C= 5.7 in JUL 09 GOAL:Maintain/improve stability. PLAN:Continue current monitoring.A1C in 6 mos . Summary: Medications: reviewed/changed/refilled _ Completed Results:_Reviewed Labs:_6 mos:BMP, A1C Follow up visit: Return to clinic: _ 6 months Other activities completed this visit: Education provided (discussion, questions, etc) _ Discussed: BP meds and also she will get Tdap in next week ---RX already in pharmacy Coordinate care: Primary care and _ Time spent: Pre-visit planning: _ 9 Bugb-ul-[id number] visit: _ 33 Total visit time: _ 42 *does not include time for AWV or [...] Historical information-source unspecified 3Result Comment: Given at [facility] 4Result Comment: [07/20/2011 Uncharted] error 5Result Comment: [07/20/2011 Uncharted] error 6Result Comment: 2020-03-23: Historical information-source unspecified 7Result Comment: 2020-03-23: Historical information-source unspecified Medications Aleve Start: 07/04/12 8:44:00, See Instructions, prn Start Date: 07/04/12 Status: Ordered amLODIPine 5 mg oral tablet Start: 07/04/23 11:36:00 EDT, 1 tab, PO, Daily, Disp# 90 tab, Refills: 4, Pharmacy: [id number] Start Date: 07/04/23 Stop Date: 09/26/24 Status: Ordered anastrozole 1 mg oral tablet Start: 07/17/19 12:51:00 EDT, 1 tab, PO, Daily Start Date: 07/17/19 Status: Ordered betamethasone dipropionate 0.05% topical cream Start: 12/25/22 11:29:00 EDT, 1 appl, topical, bid, Disp# 50 g, Refills: 3, apply to chest lesion until clear, Pharmacy: [id number] Start Date: 12/25/22 Status: Ordered Boostrix (Tdap) intramuscular suspension Start: 01/10/23 10:23:00 EDT, 0.5 mL, IM, ONCE, Disp# 0.5 mL, Pharmacy: [id number] Start Date: 01/10/23 [...] 16 GRAMS/DAY/SINGLE JOINT OF LOWER EXTREMITIES, Pharmacy: [address] Start Date: 08/09/20 Status: Ordered diclofenac sodium 75 mg oral delayed release tablet Start: 08/08/21 8:23:00 EDT, See Instructions, Disp# 60 tab, Refills: 3, take 1 tablet by mouth twice a day with food if needed for pain, Pharmacy: [address] Start Date: 08/08/21 Status: Ordered Efudex 5% topical cream Start: 12/07/20 10:56:00 EDT, 1 appl, topical, bid, Disp# 40 g, Refills: 0, apply to forehead,nose,and lip for 3 weeks, Pharmacy: [address] Start Date: 12/07/20 Status: Ordered erythromycin 0.5% ophthalmic ointment Start: 06/01/20 12:28:00 EDT, 0.5 inch, both eyes, qid, Disp# 3.5 g, Refills: 1, Pharmacy: [address] Start Date: 06/01/20 Stop Date: 06/21/20 Status: Ordered glucosamine-chondroitin 600 mg-750 mg oral tablet Start: 08/19/12 10:35:00, See Instructions, PO BID Start Date: 6/4/13 Status: Ordered hydroCHLOROthiazide 25 mg oral tablet Start: 04/25/23 10:38:00 EST, 1 tab, PO, Daily, Disp# 90 tab, Refills: 4, Pharmacy: [id number] Start Date: 04/25/23 Status: Ordered ketoconazole 2% topical cream Start: 06/21/22 11:25:00 EDT, 1 appl, topical, qhs, Disp# 60 g, Refills: 2, apply to abdomen until rash is clear, Pharmacy: [facility] #[id number] Start Date: 06/21/22 Status: Ordered mometasone 0.1% topical cream Start: 10/16/18 9:21:00 EDT, 1 appl, topical, bid, Disp# 30 g, Refills: 1, apply to forehead dermatitis until clear and then as needed, [facility]acy: [facility] Start Date: 10/16/18 Status: Ordered multivitamin Start: 01/10/10 10:23:38, Refills: 0, current medication from another provider Start Date: 01/10/10 Status: Ordered nystatin 100,000 units/g topical powder Start: 06/21/22 11:25:00 EDT, See Instructions, Disp# 120 g, Refills: 3, apply to abdomen after shower and meticulous drying each am, Pharmacy: [id number] Start Date: 06/21/22 Status: Ordered omega-3 polyunsaturated fatty acids 1100 mg oral delayed release capsule Start: 01/10/10 10:22:10, Refills: 0, current medication from another provider Start Date: 01/10/10 Status: Ordered pantoprazole 40 mg oral delayed release tablet Start: 04/09/23 12:24:00 EST, 1 tab, PO, Daily, Disp# 90 tab, Refills: 0, Pharmacy: [id number] Start Date: 04/09/23 Status: Ordered Pepcid 20 mg oral tablet Start: 02/09/19 13:19:00 EST, 0.5 tab, PO, Daily, Disp# 15 tab, Refills: 2, avoid eating and drinking for 10 minutes after each dose & use prn, Note to Pharmacy: replace zantac, Pharmacy: [facility] Start Date: 02/09/19 Stop Date: 05/10/19 Status: Ordered rosuvastatin 10 mg oral tablet Start: 07/04/23 11:34:00 EDT, See Instructions, Disp# 90 tab, Refills: 4, take 1 tablet by mouth atbedtime, Pharmacy: [id number] Start Date: 07/04/23 Status: Ordered Mental Status 07/04/23 Barriers to Learning one year None evide nt Mandatory Health Literacy Documentation Yes Health Literacy Communication Barriers N ever Primary Language [place]de[place] Problem List Condition Confirmation Course Effective Dates [...] Effective Dates Health Status Clinical Service Informant Breast cancer, left Discharge Diagnosis 07/03/23 HTN - Hypertension Discharge Diagnosis 07/03/23 Hyperlipidemia Discharge Diagnosis 07/03/23 Prediabetic, prediabetes Discharge Diagnosis 07/03/23 Body mass index [BMI] 24.0-24.9, adult Discharge Diagnosis 07/04/23 Non-Specified Procedures Procedure Date Related Diagnosis Body [...] recent to oldest [Reference Range]: 1 Height 167 cm (07/04/23 11:05 AM) Patient Weight 69.5 kg (07/04/23 11:05 AM) Body Mass Index 24.92 kg/m2 (07/04/23 11:05 AM) Heart Rate 80 bpm (07/04/23 11:05 AM) Respiratory Rate 18 br/min (07/04/23 11:05 AM) Blood Pressure 120/80mmHg (07/04/23 11:05 AM) Cuff Pulse Pressure 40 mmHg (07/04/23 11:05 AM) Social History Social History Type Response Tobacco Former smoker, Cigar ettes, 15 year(s). Stopped age [age] Years. 1 Smoking Status Never smoked cigaret kristan Sex Female 14 cig per day x 15 years FCM Outpt Note * MD Jami, Luis Shirley: PERFORM Event Display: FCM Outpt Note Authored Date: [id number] Chief Complaint 6 month f/u. blood work results. History of Present Illness Most recent visitwith Dr. Farrell: 04/25/23 * This patient is followed longitudinally for chronic serious medical problems by Dr. Lor Farrell. CC: FU on established problems (status = chronic): Breast CA Left, HTN, HLD, Low Na, Pre DM Address new problems (status = acute): Needs RX Review of Systems Constitutional: No fever, No chills, No fatigue. Respiratory: No shortness of breath, No cough, No wheezing. Cardiovascular: No chest pain, No palpitations. Gastrointestinal: No nausea, No vomiting, No diarrhea, No abdominal pain. Neurologic:No numbness, No tingling, No headache. Physical Exam Vitals & Measurements HR:80(Monitored) RR:18 BP:120/80 SpO2:98% HT:167cm WT:69.5kg WT:69.500kg(Dosing) BMI:24.92 PHQ2 Data(Data Documented on:07/04/2023 11:05) Emotional health assessment NEGATIVE General: Alert and [...] Psychiatric: Cooperative, Appropriate mood & affect. Assessment/Plan 1.Breast cancer, left STATUS:Chronic stable. 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 GOAL:Maintain/improve stability. PLAN:Continue current monitoring.FU with Dr Gould annually in NOV. Cont Anastrozole x 5 years total ( 2024). Barbara FU with Maribel Warner at [facility]. . 2.HTN - Hypertension STATUS:Chronic stable. Previous visit: Hold steady for now and see what BP runs after stress withBro is reduced. Increase K+.Rec to stop Losartan and start Olmesartan 20 mg daily. Then next visit consider increase Olmsartan prn and stop HCTZ--may help BP control and hyponatremia. Currentlyon HCTZ 25 mg. DATA:Labs/Tests reviewed. BP= 120/70- 130s/ 70 GOAL:Maintain/improve stability. PLAN:Continue current monitoring.Cont same . . 3.Hyperlipidemia STATUS:Chronic stable. Previous visit: FLP At goal MAY 2022---then repeat MAY 2023 DATA:Labs/Tests reviewed. LDL= 90 GOAL:Maintain/improve stability. PLAN:Continue current monitoring.LIPID 1 year . 4.Prediabetic, prediabetes STATUS:Chronic stable. Previous visit: A1C for JUN visit DATA:Labs/Tests reviewed. A1C= 5.7 in JUN 24 GOAL:Maintain/improve stability. PLAN:Continue current monitoring.A1C in 6 mos . Summary: Medications: reviewed/changed/refilled _Completed Results:_Reviewed Labs:_6 mos:BMP, A1C Follow up visit: Return to clinic: _6 months Other activities completed this visit: Education provided (discussion, questions, etc) _ Discussed: BP meds and also she will get Tdap in next week ---RX already in pharmacy Coordinate care: Primary care and _ Time spent: Pre-visit planning: _ 9 Mdtl-gg-iqvy visit: _ 33 Total visit time: _ 42 *does not include time for AWV or procedure if applicable Problem List/Past Medical History Ongoing Allergic rhinitis due to allergen Biswas's cyst Breast cancer, left Cervical strain Degenerative arthritis of knee Degenerative joint disease (DJD) of hip Family history of cardiovascular disease GERD Health care maintenance History of squamous cell carcinoma Hordeolum eyelid HTN - Hypertension Hx of basal cell carcinoma Hyperlipidemia Hyponatremia Impingement syndrome of shoulder region Index finger IT band syndrome Knee pain, left Neuropathy OA - Osteoarthritis of joint of finger Osteoarthritis Osteoarthrosis of the carpometacarpal joint of the thumb Polyneuropathy Prediabetic, prediabetes Seasonal allergies Status post total hip replacement, right Strain of rotator cuff capsule Total bilirubin, elevated Trochanteric bursitis Historical Fatigue - symptom Hand pain, left Procedure/Surgical History Shave biopsy of skin| Service Date: 3DEXA (dual energy X-ray absorptiometry) of lateral spine| Service Date: 2Colonoscopy| Service Date: 1Colonoscopy| Service Date: 1Prosthetic arthroplasty of left hip| Service Date: 12/31/2019Date of last mammogram| Service Date: 08/2019Total replacement of right hip joint| Service Date: 06/04/2019Hip replacement| Service Date: 06/02/2019Insertion of A-port right subclavian vein| Service Date: 11/20/2018Surgery| Service Date: 09/26/2018Lumpectomy of left breast| Service Date: 09/26/2018Ultrasound Guided Biopsy Left Breast| Service Date: 08/27/2018Biopsy of breast| Service Date: 08/27/2018Diagnostic mammogram| Service Date: 08/27/2018Unilateral Left Digital Diagnostic Mammogram Tomosynthesis and targeted left ultrasound| Service Date: 08/26/2018Mammogram| Service Date: 08/21/2018Mammogram - screening| Service Date: 08/19/2017Epidural steroid injection| Service Date: 08/08/2017MRI of lumbar spine| Service Date: 05/08/2017Lower leg X-ray-right| Service Date: 05/02/2017X-ray of right ankle| Service Date: 05/02/2017EMG - Electromyography| Service Date: 02/19/2017Femoral neck DEXA scan| Service Date: 01/29/2017Mammogram| Service Date: 08/29/2016 unilateral left mammogram| Service Date: 08/22/2016Mammogram - screening| Service Date: 08/15/2016Skeletal X-ray of pelvis and hip| Service Date: 08/09/2016Baker's cyst| Service Date: 07/16/2016Mammogram - screening| Service Date: 08/16/2015X-ray of left knee| Service Date: 016Cataract extraction| Service Date: 03/02/2015Cataract extraction| Service Date: 02/16/2015Mammogram abnormal| Service Date: 01/27/2015PAP test date| Service Date: 10/01/2014Mammogram - screening| Service Date: 07/27/2014Mammogram| Service Date: 01/27/2014bnormal mammogram| Service Date: 01/11/2014Mammogram| Service Date: 01/05/2013Right shoulder /SAD/biceps Tenotomy| Service Date: 10/21/2012EKG-preop| Service Date: 09/29/2012R shoulder x-ray-PSSM| Service Date: 07/21/2012DEXA-Normal| Service Date: 10/16/2010COLONOSCOPY| Service Date: 03/18/2008Cardiac Cath--WNL| Service Date: 03/18/2004Dermabrasion to face| Service Date: 03/18/2002Stress ECHO-False Positive| Service Date: 05/16/2001FNA RIGHT BREAST| Service Date: 03/18/2001Fusion Fifth Metatarsal RIGHT foot| Service Date: 03/18/1997Right foot surgery| Service Date: 1995TAH-BSO| Service Date: 03/18/1993Dermabrasion to face| Service Date: 03/18/1991RIGHT Axillary growth removed-BENIGN| Service Date: 03/18/1952Mohs surgery Medications amLODIPine(amLODIPine 5 mg oral tablet), 5 mg= 1 tab, PO, Daily, 4 refills anastrozole(anastrozole 1 mg oral tablet), 1 [...] rosuvastatin(rosuvastatin 10 mg oral tablet), See Instructions, 4 refills tetanus/diphth/pertuss (Tdap) adult/adol(Boostrix (Tdap) intramuscular suspension), [...] Member(s) Relationship: Mother, Age: 73 Years, Cause: [place] Relationship: Father, Age: 86 Years, Cause: CVA Immunizations Vaccine Date Status influenza virus vaccine, inactivated 12/14/2021 Given Comments : Early/Late Reason: Other : on time. SARS-CoV-2 (COVID-19) mRNA-1273 vaccine 02/02/2021 Recorded Comments : 2021-06-12: Historical information-source unspecified SARS-CoV-2 (COVID-19) mRNA-1273 vaccine 05/03/2020 Given zoster vaccine, inactivated 03/22/2020 Recorded influenza virus vaccine, inactivated 02/16/2020 Recorded zoster vaccine, inactivated 09/29/2019 Recorded Comments : Given at [facility] influenza virus vaccine, inactivated 02/26/2019 Given [...] OverDue Adult Influenza Vaccine due09/14/22and every 1year Medicare Annual Wellness Visit due06/26/23and every 1year Due Adult COVID-19 Vaccination due07/04/23Unknown Frequency Adult Social Determinants of Health Screening due07/04/23Unknown Frequency Adult Tdap/Td Vaccine due07/04/23Unknown Frequency Satisfied(in the past 1 year) Satisfied Body Mass Index on07/04/23.Satisfied by JUANJO Danielle Kyla Breast Cancer Screening on11/07/22.Satisfied by Cassidy Fernandez Diabetes Management A1c on07/02/23.Satisfied by Contributor_system, [email or web address] Lipid Screening on07/02/23.Satisfied by Contributor_system, [email or web address] Electronic Signature on File Electronically Reviewed/Signed by: Luis Farrell MD Author Signature Dt/Tm:07/04/2023 11:52 AM Department of Family Medicine MP Patient Care team information Care Team Personnel Name: MD Farrell Michael P Position: Physician - Family Med Member Role: Primary Care Provider Address: Address: [facility] [place] [address] [place] Care Team Related Persons Name: BERNICE KELLY Address: [address] [place] [phone]"
[2023-08-05 01:09] LABS: Appearance Urine Clear (Clear); Bilirubin Urine Negative (Negative); Blood Urine Negative (Negative); Color Urine Yellow; Glucose Urine UA Negative (Negative); Ketones Urine 1+ (Negative); Leukocyte Esterase Urine Negative (Negative); Nitrite Urine Negative (Negative); Protein Urine Negative (Negative); Specific Gravity Urine 1.007 (1.000-1.030); Urobilinogen Urine Negative (Negative)
[2023-08-05] MEDS: SODIUM CHLORIDE 0.9% 1,000 ML IV STA (01:10)
[2023-08-05] MEDS: ONDANSETRON INJ 2 MG/ML 2 ML VIAL IV STA (01:10)
[2023-08-05] MEDS: ACETAMINOPHEN 1,000 MG/100 ML VIAL IV STA (01:10)
[2023-08-05 01:11] LABS: Basophils # (auto) 0.02 K/uL (0.00-0.20); Basophils % (auto) 0.4 %; Eosinophils # (auto) 0.02 K/uL (0.00-0.50); Eosinophils % (auto) 0.4 %; Hematocrit (blood only) 36.6 % (37.0-47.0); Hemoglobin 12.9 g/dl (12.0-16.0); Immature Granulocytes # (auto) 0.01 K/uL (0.01-0.20); Immature Granulocytes % (auto) 0.2 %; Lymphocytes # (auto) 1.21 K/uL (1.20-3.40); Lymphocytes % (auto) 27.1 %; Mean Corpuscular Hemoglobin 28.8 pg (25.0-34.0); Mean Corpuscular Hgb Conc 35.2 g/dL (32.0-36.0); Mean Corpuscular Volume 81.7 fL (80.0-100.0); Mean Platelet Volume 10.5 fL (9.4-12.4); Monocytes # (auto) 0.45 K/uL (0.11-0.59); Monocytes % (auto) 10.1 %; Neutrophils # (auto) 2.76 K/uL (1.40-6.50); Neutrophils % (auto) 61.8 %; Platelet Count 159 K/uL (130-400); RDW Standard Deviation 38.6 fL (36.4-46.3); Red Blood Count 4.48 M/uL (4.20-5.40); White Blood Count 4.47 K/ul (4.8-10.8)
[2023-08-05 01:28] LABS: Albumin Globulin Ratio 1.4 (0.9-2); Albumin Level 4.1 gm/dl (3.4-5.0); BUN Creatinine Ratio 11.7 (10-20); Bilirubin,Total 1.3 mg/dl (0.2-1.0); Calcium 9.3 mg/dl (8.6-10.3); Est GFR (African American) 99.8 ml/min; Est GFR (Non-African American) 86.1 ml/min; Potassium 3.4 mmol/L (3.5-5.1); Total Protein 7.1 gm/dl (6.0-8.3)
[2023-08-05] MEDS: MoRPHine SULFATE 4 MG/ML 1 ML CARP\\VIAL IV STA (02:23)
--- NOTE | 2023-08-05 02:23 | Emergency Department Note ---
Impression & Plan Acute hyponatremia, Right upper quadrant abdominal pain ED Provider Note CHIEF COMPLAINT: Right-sided abdominal pain HISTORY OF PRESENT ILLNESS: This 78-year-old female patient presents to the emergency department via private vehicle for evaluation of right-sided abdominal pain. Patient states that symptoms began 1 day ago. She awoke suddenly on Saturday morning at about 2 AM with the pain. The patient states this pain is in the right upper side of the abdomen. She also reports bloating and indigestion. The patient states that for the pain started, she ate baked chicken and potatoes for dinner. She denies any fried or fatty foods. The patient has not had a fever. She reports nausea but no vomiting. No dysuria, urinary frequency, urinary hesitancy, hematuria. She took Pepcid with minimal improvement in her symptoms, but no resolution. The patient has never had symptoms similar to this in the past. She is concerned for her gallbladder given the location of the pain. She denies any chest pain or shortness of breath. No cough, congestion, runny nose, sore throat REVIEW OF SYSTEMS: A 10 system review of systems was performed with positives and pertinent negatives listed in the history of present illness. All other systems were reviewed and are negative. ALLERGIES: Adhesive tape, Keflex, lisinopril PHYSICAL EXAM: VITALS: Vitals are noted on the nurse's note and reviewed by myself. Vital signs stable. GENERAL: This is an 78 year old female, in no acute distress, nondiaphoretic, well-developed well-nourished. SKIN: The skin was without rashes, erythema, edema, or bruising. There is no tenting of the skin. Capillary refill less than 2 seconds. HEAD: Normocephalic atraumatic. EARS: External auditory canals clear, tympanic membranes pearly govea without erythema or effusion bilaterally. No hemotympanum. Negative mayer sign EYES: Pupils equal round and reactive to light and accommodation. Conjunctivae without injection, sclerae without icterus. Extraocular movements intact. NOSE: Patent, turbinates without inflammation or discharge. No sinus tenderness. MOUTH: Mucous membranes moist. Tonsils are not enlarged. Pharynx without erythema or exudate. Uvula midline. Airway patent. Tongue does not deviate. NECK: Supple without nuchal rigidity. No lymphadenopathy. Cervical spine is nontender. No JVD. HEART: Regular rate and rhythm without murmurs gallops or rubs. LUNGS: Clear to auscultation bilaterally without wheezes, rales or rhonchi. No retractions or accessory muscle use. ABDOMEN: Positive bowel sounds x 4. Right upper quadrant tenderness to palpation. The abdomen is otherwise soft, nontender, without masses or organomegaly. Kirby sign positive. No guarding or rebound tenderness. MUSCULOSKELETAL: No muscle atrophy, erythema, or edema noted. Full range of motion without joint tenderness in all extremities. No tenderness to palpation. Normal gait. Strength 5/5 throughout. NEURO: Patient was alert and oriented to person place and time. No focal neurological deficits. An order was placed for continuous lunchroom monitor. The monitor showed a normal sinus rhythm at a ventricular rate of 71 bpm, per my interpretation. Imaging as interpreted by myself and the radiologist revealed mildly dilated appendix, low suspicion for acute appendicitis, with radiologist interpretation as above. I agree with the radiologist's findings as based upon my independent interpretation. EMERGENCY DEPARTMENT COURSE: The patient was seen and evaluated as above. The patient presents for right upper quadrant pain radiating to the right flank. This began 2 days ago IV access obtained, labs are drawn. Patient was hydrated with IV fluids, medicated with Zofran and acetaminophen. Labs reviewed. Per my interpretation, no leukocytosis, anemia, thrombocytopenia. Renal, hepatic function without significant abnormality. Patient was hyponatremic with a sodium of 126. Potassium was 3.4. Lipase was 12. Urinalysis negative for blood or evidence of infection. CT imaging completed and reviewed by myself and radiologist as noted. This showed a mildly dilated appendix, but no surrounding inflammatory changes and radiologist suggests low suspicion for acute appendicitis. The patient does not have a leukocytosis and is not experiencing right lower quadrant tenderness, low suspicion for acute appendicitis in this patient I discussed case with Dr. Lundy. He did agree to evaluate the patient for admission due to the hyponatremia. Will continue to workup the right upper quadrant abdominal pain. Unclear cause for her pain at this time. Low suspicion for infection given reassuring labs. No evidence of ureteral stone. No evidence of hydronephrosis. Please see hospitalist dictation regarding ongoing management care of this patient Case was discussed with the attending physician. I attest that I have personally reviewed the patient medication list. I attest that I have reviewed the patient's blood pressure and it was found to be elevated. Further management by hospitalist. GCS: 15 In the evaluation and treatment of this patient the following differential diagnoses were entertained: appendicitis, diverticulitis, obstruction, inflammatory bowel disease, renal colic, PUD, biliary pathology, pancreatitis, mesenteric ischemia, aortic pathology, infections, genitourinary, UTI, perforated viscus, as well as others were entertained. The chart was completed utilizing [employer] Speech voice recognition software. Grammatical errors, random word insertions, pronoun errors, and incomplete sentences are an occasional consequence of this system due to software limitations, ambient noise, and hardware issues. Any formal questions or concerns about the content, text, or information contained within the body of this dictation should be directly addressed to the provider for clarification. Past Med/Surg History Problem List (Updated 08/05/23 @ 05:04 by Emily Lyons PA-C) Right upper quadrant abdominal pain (Acute) Acute hyponatremia (Acute) Dyslipidemia Gastroesophageal reflux History of arthroscopy of right shoulder History of hysterectomy Hypertension Osteoarthritis Encounter for pre-operative examination Primary localized osteoarthrosis of right hip Malignant neoplasm of upper-inner quadrant of left breast in female, estrogen receptor positive (Chronic) Lumbar radiculopathy (Chronic) S/P total hip arthroplasty Vulvitis (Acute) Superficial peroneal nerve neuropathy (Acute) Squamous cell carcinoma of skin of trunk (Acute) Seborrheic keratosis (Acute) S/P breast biopsy (Acute) Osteopenia (Acute) Neoplasm of uncertain behavior of skin (Acute) Leg pain, lateral (Acute) Intertrigo (Acute) Inconclusive mammogram (Acute) Hypercholesterolemia (Acute) History of breast biopsy (Acute) History of basal cell carcinoma (Acute) Dermatitis (Acute) Arthritis (Acute) Actinic keratosis (Acute) Abnormal finding on mammography (Acute) Port-A-Cath in place Medical History History of neuropathy Legs "Resolved" with steroid injections by pain management Hx of squamous cell carcinoma of skin Hx of skin cancer, basal cell History of breast cancer Left breast 2018 C, chemo completed 12/2018, finished radiation 02/2019 Osteoarthritis GERD (gastroesophageal reflux disease) Hx of rosacea Hx of migraines History of palpitations 2003- s/p unremarkable cardiac cath No issues since Hypertension Hyperlipidemia Surgical History (Updated 01/17/23 @ 10:39 by Susan Dove RN) History of removal of Port-a-Cath (01/17/23) Access Port Removal(Not Applicable) - Blu Payne MD, FACS History of left hip replacement History of right hip replacement Hx of bilateral cataract extraction Port-A-Cath in place Insertion of A-Port Right Subclavian Vein Dr. Payne 11-20-18 H/O excision of mass SCC ("skin between breasts") H/O partial mastectomy Left (09/2018) + LNB Status post epidural steroid injection done 06/2017 and 07/2017 Hx of total hysterectomy Hx of rotator cuff surgery right Hx of foot surgery right History of colonoscopy History of Mohs micrographic surgery for skin cancer nose History of cardiac cath 2003 (abnormal stress test)- no stents/abnormal findings Family History Father , age 80 stroke Family history of diabetes mellitus Brother Age: 83 Family history of diabetes mellitus Hypertension Heart disease Grandmother (Paternal) , in her seventies perhaps cause unknown Family history of diabetes mellitus Sister Age: 63 Hypertension Breast cancer Mother , of heart disease Heart disease Denies family history of Ovarian cancer Colorectal cancer Social History Smoking Status: Former smoker Tobacco Type: Cigarettes Second Hand Exposure: No; Do You Dip or Chew Tobacco: No; Hx Alcohol Use: Yes (1 glass wine daily) Alcohol type: wine Hx Substance Use: No Preferred Language: Montenegrin Communication Ability: Effective Visual Impairment: No Limitations Experimental [employer] Required: No Beliefs That Will Affect Care: None marital status: Current Living Situation: Spouse Feels Safe at Home: Yes Assistive Devices: Denture - Upper Allergies Allergies Allergy/AdvReac Type Severity Reaction Status Date / Time adhesive tape AdvReac Mild Skin Verified 08/05/23 02:59 irritation ("some tapes") cephalexin AdvReac Mild Vaginitis Verified 08/05/23 02:59 lisinopril AdvReac Mild Cough Verified 08/05/23 02:59 Home Meds Home Medications Medication Instructions Recorded Confirmed [id number] acid 0.4 1 tab PO QAM 08/15/18 08/05/23 mg-lycopene 300 mcg-lutein 250 mcg tablet (Centrum Silver) rosuvastatin 10 mg tablet 10 mg PO QPM 08/15/18 08/05/23 pantoprazole 40 mg tablet,delayed 40 mg PO DAILY PRN GERD 12/31/18 08/05/23 release (Protonix) calcium carbonate 600 mg-vitamin 1 tab PO BID 05/25/19 08/05/23 D3 5 mcg (200 unit) tablet (Calcium 600 + D(3)) anastrozole 1 mg tablet 1 mg PO QAM 08/06/19 08/05/23 amlodipine 5 mg tablet 5 mg PO HS 08/05/23 08/05/23 coenzyme Q10 50 mg capsule (Co 50 mg PO QPM 08/05/23 08/05/23 Q-10) glucosamine sulfate 1,000 mg 1,000 mg PO BID 08/05/23 08/05/23 capsule hydrochlorothiazide 25 mg tablet 25 mg PO QAM 08/05/23 08/05/23 omega-3 fatty acids 1,000 mg 1,000 mg PO QAM 08/05/23 08/05/23 capsule Previous Rx's Medication Instructions Recorded nystatin-triamcinolone 100,000 1 applic topical BID PRN rash #15 12/17/22 unit/g-0.1 % topical cream grams Results & Data (ED) Vital Signs Vital Signs - 24 hr 08/05/23 00:30 08/05/23 02:25 Temperature 37 C Temperature Source Temporal Artery Scan Pulse Rate 93 H Pulse Rate [Apical] 71 Pulse Rhythm Regular Pulse Rhythm [Apical] Regular Pulse Strength Normal Pulse Strength [Apical] Normal Respiratory Rate 18 17 Respiratory Effort / Characteristics Non-Labored Spontaneous Non-Labored Spontaneous Respiratory Depth Normal Normal Respiratory Pattern Regular Regular Blood Pressure 170/76 H Blood Pressure [Right Arm] 144/66 H Blood Pressure Mean 107 Blood Pressure Mean [Right Arm] 92 Blood Pressure Position Sitting Blood Pressure Position [Right Arm] Sitting Pulse Oximetry 97 Oxygen Delivery Method Room Air Sepsis Recent Fever Within 48 Hours No Sepsis New/Unexplained Change in Mental Status N/A Sepsis Action Taken by Nursing No Action Required Laboratory Data 08/05/23 00:56 08/05/23 00:56 Lab Results 08/05/23 Range/Units 00:56 WBC 4.47 L (4.8-10.8) K/ul RBC 4.48 (4.20-5.40) M/uL Hgb 12.9 (12.0-16.0) g/dl Hct 36.6 L (37.0-47.0) % MCV 81.7 (80.0-100.0) fL MCH 28.8 (25.0-34.0) pg MCHC 35.2 (32.0-36.0) g/dL RDW Std Deviation 38.6 (36.4-46.3) fL RDW Coeff of Scott 13.0 (11.5-14.5) % Plt Count 159 (130-400) K/uL MPV 10.5 (9.4-12.4) fL Immature Gran % (Auto) 0.2 % Neut % (Auto) 61.8 % Lymph % (Auto) 27.1 % Kay % (Auto) 10.1 % Eos % (Auto) 0.4 % Baso % (Auto) 0.4 % Neut # (Auto) 2.76 (1.40-6.50) K/uL Lymph # (Auto) 1.21 (1.20-3.40) K/uL Kay # (Auto) 0.45 (0.11-0.59) K/uL Eos # (Auto) 0.02 (0.00-0.50) K/uL Baso # (Auto) 0.02 (0.00-0.20) K/uL Immature Gran # (Auto) 0.01 (0.01-0.20) K/uL Sodium 126 L (136-145) mmol/L Potassium 3.4 L (3.5-5.1) mmol/L Chloride 90 L (98-107) mmol/L Carbon Dioxide 27 (21-32) mmol/L Anion Gap 9 (3-11) BUN 7 (6-23) mg/dl Creatinine 0.60 (0.6-1.2) mg/dl Est Cr Clr Drug Dosing 70.0 ml/min Est GFR ( Amer) 99.8 ml/min Est GFR (Non-Af Amer) 86.1 ml/min BUN/Creatinine Ratio 11.7 (10-20) Glucose 125 H (70-99(Fasting)) mg/dl Calcium 9.3 (8.6-10.3) mg/dl Total Bilirubin 1.3 H (0.2-1.0) mg/dl AST 42 H (13-39) U/L ALT 47 (7-52) U/L Alkaline Phosphatase 98 (34-104) U/L Total Protein 7.1 (6.0-8.3) gm/dl Albumin 4.1 (3.4-5.0) gm/dl Globulin 3.0 (2.5-4.0) gm/dl Albumin/Globulin Ratio 1.4 (0.9-2) Lipase 12 (11-82) U/L Urine Color Yellow Urine Appearance Clear (Clear) Urine pH 8.0 H (4.5-7.5) Ur Specific [place] 1.007 (1.000-1.030) Urine Protein Negative (Negative) Urine Glucose (UA) Negative (Negative) Urine Ketones 1+ H (Negative) Urine Blood Negative (Negative) Urine Nitrite Negative (Negative) Urine Bilirubin Negative (Negative) Urine Urobilinogen Negative (Negative) Ur Leukocyte Esterase Negative (Negative) Administered Medications Discontinued Medications Sodium Chloride (Nss) 1,000 mls @ 999 mls/hr IV .Q1H1M STA Stop: 08/05/23 01:36 Last Infusion: 08/05/23 02:19 Dose: Infused Documented By: Admin: 08/05/23 01:10 Dose: 999 mls/hr Documented By: JAYLIN Acetaminophen (Ofirmev) 1,000 mg in 100 mls @ 400 mls/hr IV NOW STA Stop: 08/05/23 00:50 Last Infusion: 08/05/23 01:27 Dose: Infused Documented By: Admin: 08/05/23 01:10 Dose: 400 mls/hr Documented By: JAYLIN Morphine Sulfate (Morphine Sulfate 4 Mg/Ml 1 Ml Carp\\Vial) 4 mg IV NOW STA Stop: 08/05/23 02:16 Last Admin: 08/05/23 02:23 Dose: 4 mg Documented By: JAYLIN Ondansetron HCl (Ondansetron Inj 2 Mg/Ml 2 Ml Vial) 4 mg IV NOW STA Stop: 08/05/23 00:37 Last Admin: 08/05/23 01:10 Dose: 4 mg Documented By: JAYLIN Imaging Data Radiologist's Impression: Abdomen/Pelvis CT 08/05/23 00:36 Exam(s): CT ABDOMEN + PELVIS Without Contrast EXAM: CT Abdomen and Pelvis Without Intravenous Contrast CLINICAL HISTORY: Reason for exam: right flank pain. TECHNIQUE: Axial computed tomography images of the abdomen and pelvis without intravenous contrast. Automated exposure control was utilized for the study. A dose lowering technique was utilized adhering to the principles of ALARA. COMPARISON: No relevant prior studies available. FINDINGS: Limitations: Limited evaluation in the absence of contrast. Lung bases: Unremarkable. No mass. No consolidation. Mediastinum: Small hiatal hernia. ABDOMEN: Liver: Unremarkable. Gallbladder and bile ducts: Unremarkable. No calcified stones. No ductal dilation. Pancreas: Unremarkable. No ductal dilation. Spleen: Unremarkable. No splenomegaly. Adrenals: Unremarkable. No mass. Kidneys and ureters: Unremarkable. No obstructing stones. No hydronephrosis. Stomach and bowel: Unremarkable. No obstruction. No mucosal thickening. PELVIS: Appendix: The appendix is mildly dilated measuring 9 mm in diameter. No evidence of significant adjacent inflammatory change. Findings less likely relate to appendicitis. Bladder: Unremarkable. No stones. Reproductive: Unremarkable as visualized. ABDOMEN and PELVIS: Intraperitoneal space: Unremarkable. No free air. No significant fluid collection. Bones/joints: Please note that evaluation for obstructive calculi is limited by bilateral total hip arthroplasties. Bilateral total hip arthroplasties. Degenerative changes in the spine. No acute fracture. No dislocation. Soft tissues: Unremarkable. Vasculature: Calcifications noted in the pelvis which are favored to be phleboliths. Atherosclerotic disease. No abdominal aortic aneurysm. Lymph nodes: Unremarkable. No enlarged lymph nodes. Other findings: No evidence of collecting system dilatation. IMPRESSION: 1. Please note that evaluation for obstructive calculi is limited by bilateral total hip arthroplasties. 2. No evidence of collecting system dilatation. 3. Calcifications noted in the pelvis which are favored to be phleboliths. 4. The appendix is mildly dilated measuring 9 mm in diameter. No evidence of significant adjacent inflammatory change. Findings less likely relate to appendicitis. 5. Other incidental findings as described. Electronically signed by: Cortez Murrell MD 08/05/23 04:02 AM Discharge Plan Visit Data Chief Complaint: Flank Pain Stated Complaint: PAIN RIGHT SIDE UNDER RIBS, GALLBLADDER? ED Provider: Dai Duran ED Midlevel Provider: Emily Lyons Discharge Problem: Acute hyponatremia, Right upper quadrant abdominal pain Patient Disposition: Admitted As Inpatient Forms Stand Alone Forms: [facility], Important Visit Information Prescriptions Prescriptions: No Action anastrozole 1 mg tablet 1 mg PO QAM nystatin-triamcinolone 100,000-0.1 unit/g-% cream 1 applic topical BID PRN (Reason: rash) Qty: 15 5RF rosuvastatin 10 mg Tablet 10 mg PO QPM Centrum Silver 0.4-300-250 mg-mcg-mcg Tablet 1 tab PO QAM pantoprazole [Protonix] 40 mg tablet,delayed release (DR/EC) 40 mg PO DAILY PRN (Reason: GERD) calcium carbonate-vitamin D3 [Calcium 600 + D(3)] 600 mg(1,500mg) -200 unit Tablet 1 tab PO BID hydrochlorothiazide 25 mg tablet 25 mg PO QAM amlodipine 5 mg tablet 5 mg PO HS omega-3 fatty acids 1,000 mg Capsule 1,000 mg PO QAM coenzyme Q10 [Co Q-10] 50 mg Capsule 50 mg PO QPM glucosamine sulfate 1,000 mg Capsule 1,000 mg PO BID Rx Instructions: administer with meals Referrals Referrals: Luis Farrell [Primary Care Provider] -
--- NOTE | 2023-08-05 04:03 | CT Scan Report ---
Exam(s): CT ABDOMEN + PELVIS Without Contrast EXAM: CT Abdomen and Pelvis Without Intravenous Contrast CLINICAL HISTORY: Reason for exam: right flank pain. TECHNIQUE: Axial computed tomography images of the abdomen and pelvis without intravenous contrast. Automated exposure control was utilized for the study. A dose lowering technique was utilized adhering to the principles of ALARA. COMPARISON: No relevant prior studies available. FINDINGS: Limitations: Limited evaluation in the absence of contrast. Lung bases: Unremarkable. No mass. No consolidation. Mediastinum: Small hiatal hernia. ABDOMEN: Liver: Unremarkable. Gallbladder and bile ducts: Unremarkable. No calcified stones. No ductal dilation. Pancreas: Unremarkable. No ductal dilation. Spleen: Unremarkable. No splenomegaly. Adrenals: Unremarkable. No mass. Kidneys and ureters: Unremarkable. No obstructing stones. No hydronephrosis. Stomach and bowel: Unremarkable. No obstruction. No mucosal thickening. PELVIS: Appendix: The appendix is mildly dilated measuring 9 mm in diameter. No evidence of significant adjacent inflammatory change. Findings less likely relate to appendicitis. Bladder: Unremarkable. No stones. Reproductive: Unremarkable as visualized. ABDOMEN and PELVIS: Intraperitoneal space: Unremarkable. No free air. No significant fluid collection. Bones/joints: Please note that evaluation for obstructive calculi is limited by bilateral total hip arthroplasties. Bilateral total hip arthroplasties. Degenerative changes in the spine. No acute fracture. No dislocation. Soft tissues: Unremarkable. Vasculature: Calcifications noted in the pelvis which are favored to be phleboliths. Atherosclerotic disease. No abdominal aortic aneurysm. Lymph nodes: Unremarkable. No enlarged lymph nodes. Other findings: No evidence of collecting system dilatation. IMPRESSION: 1. Please note that evaluation for obstructive calculi is limited by bilateral total hip arthroplasties. 2. No evidence of collecting system dilatation. 3. Calcifications noted in the pelvis which are favored to be phleboliths. 4. The appendix is mildly dilated measuring 9 mm in diameter. No evidence of significant adjacent inflammatory change. Findings less likely relate to appendicitis. 5. Other incidental findings as described. Electronically signed by: Cortez Murrell MD 08/05/23 04:02 AM
--- NOTE | 2023-08-05 04:16 | History & Physical Report ---
Date of Service August 05, 2023 Assessment & Plan (1) Right upper quadrant abdominal pain: (2) Acute hyponatremia: (3) Dyslipidemia: (4) Gastroesophageal reflux: (5) Hypertension: Plan Right upper quadrant abdominal pain- Radiating around right side toward the back Total bilirubin 1.[address] scan of abdomen and pelvis without contrast without acute findings N.p.o. Order HIDA scan IV fluids Acetaminophen 1 g IV every 8 hours as needed for mild pain or fever Morphine sulfate 2 mg IV every 3 hours as needed for moderate pain Morphine sulfate 4 mg IV every 3 hours as needed for severe pain Zofran 4 mg IV every 6 hours as needed Pantoprazole 40 mg IV daily Hyponatremia- Patient recently had her hydrochlorothiazide increased from 12.5 to 25 mg daily Her sodium is typically been in the 134 range on HCTZ 12.5 mg daily Holding all medications including HCTZ Status post 1 L normal saline from the ED NSS + KCl 20 mEq at 100 mL/h x 2 L Daily CBC with differential, chemistry profile and magnesium level Breast cancer- Continue anastrozole 1 mg every morning History of Present Illness Chief Complaint: The patient presents to the emergency department with acute onset of pain in right upper quadrant radiating around toward her back on the right side about 24 hours ago around 2 AM. The pain is accompanied by bloating and indigestion, which she periodically gets. She typically eats a bland diet, and for dinner tonight she had baked chicken and potatoes. Pepcid minimally helped her symptoms. She presents to the ED with concerns regarding her gallbladder. Primary Care Provider: Luis Farrell Patient is a 78-year-old female with a past medical history including left breast cancer, GERD, dyslipidemia, chronic mild hyponatremia around 134, hypertension, osteoarthritis, lumbar radiculopathy, superficial peroneal neuropathy, hypercholesterolemia, and basal cell skin cancer. She presents with symptoms as noted above. Allergies Allergy/AdvReac Type Severity Reaction Status Date / Time adhesive tape AdvReac Mild Skin Verified 08/05/23 02:59 irritation ("some tapes") cephalexin AdvReac Mild Vaginitis Verified 08/05/23 02:59 lisinopril AdvReac Mild Cough Verified 08/05/23 02:59 Home Medications Medication Instructions Recorded Confirmed Type lbppgzli-nvu-jzuyy acid 0.4 1 tab PO QAM 08/15/18 08/05/23 History mg-lycopene 300 mcg-lutein 250 mcg tablet (Centrum Silver) rosuvastatin 10 mg tablet 10 mg PO QPM 08/15/18 08/05/23 History pantoprazole 40 mg tablet,delayed 40 mg PO DAILY PRN GERD 12/31/18 08/05/23 History release (Protonix) calcium carbonate 600 mg-vitamin 1 tab PO BID 05/25/19 08/05/23 History D3 5 mcg (200 unit) tablet (Calcium 600 + D(3)) anastrozole 1 mg tablet 1 mg PO QAM 08/06/19 08/05/23 History nystatin-triamcinolone 100,000 1 applic topical BID PRN rash #15 12/17/22 08/05/23 Rx unit/g-0.1 % topical cream grams amlodipine 5 mg tablet 5 mg PO HS 08/05/23 08/05/23 History coenzyme Q10 50 mg capsule (Co 50 mg PO QPM 08/05/23 08/05/23 History Q-10) glucosamine sulfate 1,000 mg 1,000 mg PO BID 08/05/23 08/05/23 History capsule hydrochlorothiazide 25 mg tablet 25 mg PO QAM 08/05/23 08/05/23 History omega-3 fatty acids 1,000 mg 1,000 mg PO QAM 08/05/23 08/05/23 History capsule Past Med/Surg History Problem List (Updated 08/05/23 @ 05:35 by David Lundy MD) Right upper quadrant abdominal pain (Acute) Acute hyponatremia (Acute) Dyslipidemia Gastroesophageal reflux History of arthroscopy of right shoulder History of hysterectomy Hypertension Osteoarthritis Encounter for pre-operative examination Primary localized osteoarthrosis of right hip Malignant neoplasm of upper-inner quadrant of left breast in female, estrogen receptor positive (Chronic) Lumbar radiculopathy (Chronic) S/P total hip arthroplasty Vulvitis (Acute) Superficial peroneal nerve neuropathy (Acute) Squamous cell carcinoma of skin of trunk (Acute) Seborrheic keratosis (Acute) S/P breast biopsy (Acute) Osteopenia (Acute) Neoplasm of uncertain behavior of skin (Acute) Leg pain, lateral (Acute) Intertrigo (Acute) Inconclusive mammogram (Acute) Hypercholesterolemia (Acute) History of breast biopsy (Acute) History of basal cell carcinoma (Acute) Dermatitis (Acute) Arthritis (Acute) Actinic keratosis (Acute) Abnormal finding on mammography (Acute) Medical History (Updated 08/05/23 @ 05:35 by David Lundy MD) Port-A-Cath in place History of neuropathy Legs "Resolved" with steroid injections by pain management Hx of squamous cell carcinoma of skin Hx of skin cancer, basal cell History of breast cancer Left breast 2018 [facility], chemo completed 12/2018, finished radiation 02/2019 Osteoarthritis GERD (gastroesophageal reflux disease) Hx of rosacea Hx of migraines History of palpitations 2003- s/p unremarkable cardiac cath No issues since Hypertension Hyperlipidemia Surgical History (Updated 01/17/23 @ 10:39 by Susan Dove RN) History of removal of Port-a-Cath (01/17/23) Access Port Removal(Not Applicable) - Blu Payne MD, FACS History of left hip replacement History of right hip replacement Hx of bilateral cataract extraction Port-A-Cath in place Insertion of A-Port Right Subclavian Vein Dr. Payne 11-20-18 H/O excision of mass SCC ("skin between breasts") H/O partial mastectomy Left (09/2018) + LNB Status post epidural steroid injection done 06/2017 and 07/2017 Hx of total hysterectomy Hx of rotator cuff surgery right Hx of foot surgery right History of colonoscopy History of Mohs micrographic surgery for skin cancer nose History of cardiac cath 2003 (abnormal stress test)- no stents/abnormal findings Family History Father , age 80 stroke Family history of diabetes mellitus Brother Age: 83 Family history of diabetes mellitus Hypertension Heart disease Grandmother (Paternal) , in her seventies perhaps cause unknown Family history of diabetes mellitus Sister Age: 63 Hypertension Breast cancer Mother , of heart disease Heart disease Denies family history of Ovarian cancer Colorectal cancer Social History Smoking Status: Former smoker Tobacco Type: Cigarettes Second Hand Exposure: No; Do You Dip or Chew Tobacco: No; Hx Alcohol Use: Yes (1 glass wine daily) Alcohol type: wine Hx Substance Use: No Preferred Language: Divehi Communication Ability: Effective Visual Impairment: No Limitations Party Host Required: No Beliefs That Will Affect Care: None marital status: Current Living Situation: Spouse Feels Safe at Home: Yes Assistive Devices: Denture - Upper Review of Systems Review of Systems: The patient denies chest pain, palpitations, shortness of breath, dyspnea on exertion, cough, lower extremity swelling, sore throat, fevers, chills, sweats, vomiting, diarrhea , constipation, pelvic pain, blood in urine or stool, dysuria, urinary frequency or urgency, lightheadedness, dizziness, headache, memory loss, loss of consciousness, rash, abnormal bruising or bleeding, imbalance, focal or generalized weakness, numbness or tingling in arms or legs, generalized arthralgias or myalgias, back or neck pain, or night sweats. The review of systems is otherwise negative other than for that already noted above, and at least 10 systems have been reviewed. Physical Exam Physical Exam: The patient is awake, alert and oriented 3, well developed and well nourished, normocephalic and atraumatic, sitting upright in bed and in no acute distress. HEENT--PERRL, EOMI, mucous membranes and oropharynx dry. Neck--supple. No JVD. No bruits. Thyroid normal, trachea midline, no adenopathy. Heart--normal S1 and S2. No murmurs, rubs or gallops. Lungs--clear bilaterally, no respiratory distress, no accessory muscle use. Abdomen--normal bowel sounds and soft. Nontender after administration of IV morphine. Nondistended, no hernias or masses, no organomegaly. Extremities--no cyanosis or clubbing. No edema. There are good distal pulses b/ l. Dermatologic--normal skin turgor, normal color, no abnormal lymph nodes, no rash. Neurologic--cranial nerves II through XII grossly intact. Rheumatologic--normal range of motion. Psychiatric--normal affect. Results & Data Results & Data Vital Signs (Past 12 Hours) Vital Signs Temp Pulse Pulse Resp BP BP Pulse Ox 08/05/23 02:25 71 17 144/66 H 97 08/05/23 00:30 37 C 93 H 18 170/76 H O2 Del Method 08/05/23 02:25 Room Air 08/05/23 00:30 Laboratory Results Laboratory Results WBC 4.47 K/ul (4.8-10.8) L 08/05/23 00:56 RBC 4.48 M/uL (4.20-5.40) 08/05/23 00:56 Hgb 12.9 g/dl (12.0-16.0) 08/05/23 00:56 Hct 36.6 % (37.0-47.0) L 08/05/23 00:56 MCV 81.7 fL (80.0-100.0) 08/05/23 00:56 MCH 28.8 pg (25.0-34.0) 08/05/23 00:56 MCHC 35.2 g/dL (32.0-36.0) 08/05/23 00:56 RDW Std Deviation 38.6 fL (36.4-46.3) 08/05/23 00:56 RDW Coeff of Scott 13.0 % (11.5-14.5) 08/05/23 00:56 Plt Count 159 K/uL (130-400) 08/05/23 00:56 MPV 10.5 fL (9.4-12.4) 08/05/23 00:56 Immature Gran % (Auto) 0.2 % 08/05/23 00:56 Neut % (Auto) 61.8 % 08/05/23 00:56 Lymph % (Auto) 27.1 % 08/05/23 00:56 [place] % (Auto) 10.1 % 08/05/23 00:56 Eos % (Auto) 0.4 % 08/05/23 00:56 Baso % (Auto) 0.4 % 08/05/23 00:56 Neut # (Auto) 2.76 K/uL (1.40-6.50) 08/05/23 00:56 Lymph # (Auto) 1.21 K/uL (1.20-3.40) 08/05/23 00:56 [place] # (Auto) 0.45 K/uL (0.11-0.59) 08/05/23 00:56 Eos # (Auto) 0.02 K/uL (0.00-0.50) 08/05/23 00:56 Baso # (Auto) 0.02 K/uL (0.00-0.20) 08/05/23 00:56 Immature Gran # (Auto) 0.01 K/uL (0.01-0.20) 08/05/23 00:56 Sodium 126 mmol/L (136-145) L 08/05/23 00:56 Potassium 3.4 mmol/L (3.5-5.1) L 08/05/23 00:56 Chloride 90 mmol/L (98-107) L 08/05/23 00:56 Carbon Dioxide 27 mmol/L (21-32) 08/05/23 00:56 Anion Gap 9 (3-11) 08/05/23 00:56 BUN 7 mg/dl (6-23) 08/05/23 00:56 Creatinine 0.60 mg/dl (0.6-1.2) 08/05/23 00:56 Est Cr Clr Drug Dosing 70.0 ml/min 08/05/23 00:56 Est GFR ( Amer) 99.8 ml/min 08/05/23 00:56 Est GFR (Non-Af Amer) 86.1 ml/min 08/05/23 00:56 BUN/Creatinine Ratio 11.7 (10-20) 08/05/23 00:56 Glucose 125 mg/dl (70-99(Fasting)) H 08/05/23 00:56 Calcium 9.3 mg/dl (8.6-10.3) 08/05/23 00:56 Total Bilirubin 1.3 mg/dl (0.2-1.0) H 08/05/23 00:56 AST 42 U/L (13-39) H 08/05/23 00:56 ALT 47 U/L (7-52) 08/05/23 00:56 Alkaline Phosphatase 98 U/L (34-104) 08/05/23 00:56 Total Protein 7.1 gm/dl (6.0-8.3) 08/05/23 00:56 Albumin 4.1 gm/dl (3.4-5.0) 08/05/23 00:56 Globulin 3.0 gm/dl (2.5-4.0) 08/05/23 00:56 Albumin/Globulin Ratio 1.4 (0.9-2) 08/05/23 00:56 Lipase 12 U/L (11-82) 08/05/23 00:56 Urine Color Yellow 08/05/23 00:56 Urine Appearance Clear (Clear) 08/05/23 00:56 Urine pH 8.0 (4.5-7.5) H 08/05/23 00:56 Ur Specific [place] 1.007 (1.000-1.030) 08/05/23 00:56 Urine Protein Negative (Negative) 08/05/23 00:56 Urine Glucose (UA) Negative (Negative) 08/05/23 00:56 Urine Ketones 1+ (Negative) H 08/05/23 00:56 Urine Blood Negative (Negative) 08/05/23 00:56 Urine Nitrite Negative (Negative) 08/05/23 00:56 Urine Bilirubin Negative (Negative) 08/05/23 00:56 Urine Urobilinogen Negative (Negative) 08/05/23 00:56 Ur Leukocyte Esterase Negative (Negative) 08/05/23 00:56 Impressions Abdomen/Pelvis CT 08/05/23 00:36 Exam(s): CT ABDOMEN + PELVIS Without Contrast EXAM: CT Abdomen and Pelvis Without Intravenous Contrast CLINICAL HISTORY: Reason for exam: right flank pain. TECHNIQUE: Axial computed tomography images of the abdomen and pelvis without intravenous contrast. Automated exposure control was utilized for the study. A dose lowering technique was utilized adhering to the principles of ALARA. COMPARISON: No relevant prior studies available. FINDINGS: Limitations: Limited evaluation in the absence of contrast. Lung bases: Unremarkable. No mass. No consolidation. Mediastinum: Small hiatal hernia. ABDOMEN: Liver: Unremarkable. Gallbladder and bile ducts: Unremarkable. No calcified stones. No ductal dilation. Pancreas: Unremarkable. No ductal dilation. Spleen: Unremarkable. No splenomegaly. Adrenals: Unremarkable. No mass. Kidneys and ureters: Unremarkable. No obstructing stones. No hydronephrosis. Stomach and bowel: Unremarkable. No obstruction. No mucosal thickening. PELVIS: Appendix: The appendix is mildly dilated measuring 9 mm in diameter. No evidence of significant adjacent inflammatory change. Findings less likely relate to appendicitis. Bladder: Unremarkable. No stones. Reproductive: Unremarkable as visualized. ABDOMEN and PELVIS: Intraperitoneal space: Unremarkable. No free air. No significant fluid collection. Bones/joints: Please note that evaluation for obstructive calculi is limited by bilateral total hip arthroplasties. Bilateral total hip arthroplasties. Degenerative changes in the spine. No acute fracture. No dislocation. Soft tissues: Unremarkable. Vasculature: Calcifications noted in the pelvis which are favored to be phleboliths. Atherosclerotic disease. No abdominal aortic aneurysm. Lymph nodes: Unremarkable. No enlarged lymph nodes. Other findings: No evidence of collecting system dilatation. IMPRESSION: 1. Please note that evaluation for obstructive calculi is limited by bilateral total hip arthroplasties. 2. No evidence of collecting system dilatation. 3. Calcifications noted in the pelvis which are favored to be phleboliths. 4. The appendix is mildly dilated measuring 9 mm in diameter. No evidence of significant adjacent inflammatory change. Findings less likely relate to appendicitis. 5. Other incidental findings as described. Electronically signed by: Cortez Murrell MD 08/05/23 04:02 AM Code Status & VTE Plan Code Status Full code VTE Prophylaxis Plan VTE Prophylaxis will be ordered: Yes PG Care Time/CCT Total # of Minutes Spent Total Time Spent with Patient: Total time spent is greater than 50% in coordination of care (as documented) at patient's floor/unit and/or counseling patient: Coding Level of Care Code 49096 INT INP/OBS CARE 3/75MIN Diagnoses Right upper quadrant abdominal pain R10.11 Acute hyponatremia E87.1 Dyslipidemia E78.5 Gastroesophageal reflux K21.9 Hypertension I10
--- NOTE | 2023-08-05 04:39 | Emergency Department Note ---
ED Visit Note I was consulted by the Advanced Practice Provider. I personally made/approved the management plan and take responsibility for the patient management. I performed a substantive portion of the visit. This includes the aspects of: -Personally seeing the patient -MDM .
[2023-08-05] MEDS ORDERED: MoRPHine SULFATE 4 MG/ML 1 ML CARP\\VIAL IV PRN (05:34)
[2023-08-05] MEDS: MoRPHine SULFATE 2 MG/ML CARP IV PRN (06:17)
[2023-08-05] MEDS: NSS + 20MEQ KCL 20 MEQ/1,000 ML BAG IV SCH (06:18)
[2023-08-05] MEDS: ANASTROZOLE 1 MG TAB PO SCH (07:20)
--- NOTE | 2023-08-05 07:47 | Communication Note ---
Date of Service: August 05, 2023 78 y/o with HTN and recent increase in HCTZ admitted observation for hyponatremia, RUQ pain and bloating RUQ pain - Non-con CT notable only for mildly dilated appendix, LFT unremarkable minimal elevation of bili to 1.3 (has been 1.1-1.2 in past), lipase normal, UA neg. No fever/leukocytosis. HIDA ordered by admitting team -considered acute cholecystitis, cholangitis, symptomatic cholelithiasis, pancreatitis, hepatitis, diverticulitis/appendicitis, nephrolithiasis - all unlikely based on vitals, labs, imaging -R abdominal wall, radicular pain or chest? obtained CXR and tspine xray which are negative. Could be early shingles but no rash at this point. -follow up HIDA, ordered repeat CMP for this AM - HIDA notable for low EF of 28%. Xrays negative. -dicussed with Dr. Grant, recommended ultrasound. If no gallstones or abnormality would be outpatient follow up. Arm erythema overlying R bicep - very round erythematous, warm and itchy area apx 15 cm diameter no central clearing but with punctate lesion in center. Recalls no insect bite or tick exposure. Had been using steroid cream but has progressed. -oral keflex in case mild cellulitis -TAC ointment bid -check tickborne labs Hyponatremia - likely related to HCTZ and hypovolemia with poor po intake. Na 126. -on IV NS, improved to 132 -HCTZ stopped Minimal hypokalemia K 3.4 - has K in IVF Hypertension - replace HCTZ with alternative agent
[2023-08-05 09:35] LABS: BUN Creatinine Ratio 9.3 (10-20); Calcium 8.9 mg/dl (8.6-10.3); Creatinine Clr Calc Pharmacy 77.8 ml/min; Est GFR (African American) 103.3; Est GFR (Non-African American) 89.1; Total Protein 6.5 gm/dl (6.0-8.3)
[2023-08-05 09:36] LABS: Albumin Globulin Ratio 1.4 (0.9-2); Albumin Level 3.8 gm/dl (3.4-5.0); Globulin 2.7 gm/dl (2.5-4.0)
[2023-08-05] MEDS: PANTOprazole 40 MG in SYRINGE 0 ML IV SCH (09:41)
[2023-08-05] MEDS: ACETAMINOPHEN 1,000 MG/100 ML VIAL IV PRN (09:43)
[2023-08-05] MEDS: SINCALIDE 1.4 MCG in 0.9 % SODIUM CHLORIDE 100 ML IV ONE (13:45)
--- NOTE | 2023-08-05 14:50 | Nuclear Medicine Report ---
NUCLEAR MEDICINE HEPATOBILIARY SCAN WITH EJECTION FRACTION HISTORY: RUQ pain COMPARISON: Abdomen and pelvis CT 08/05/2023.. TECHNIQUE: Immediately following the intravenous administration of 5.1 mCi Tc-99m Choletec, dynamic a nterior abdominal imaging pre/post 1.4 mcg of Kinevac was performed. FINDINGS: Uniform hepatic tracer accumulation is shown. Prompt intrahepatic biliary excretion is seen. The gall bladder and common bile duct are visualized at 15 minutes. Slight delayed visualization of small lion l at 64 minutes. However, this could represent a normal variant.. This appearance represents the norm al sequence of biliary excretion. The gall bladder ejection fraction following administration of Kinevac was 28% (normal >35%). IMPRESSION: 1. No evidence for cystic duct obstruction. 2. Abnormally low gallbladder ejection fraction calculated to be 28 %. ACT 112: Negative or not required by law. Electronically signed by: Alexei Braga M.D. 08/05/2023 2:48 PM
--- NOTE | 2023-08-05 15:04 | XRay Report ---
XR chest 2V PA/lateral CLINICAL HISTORY: RUQ or R lower chest pain TECHNIQUE: 2 views of the chest were obtained. Comparison: Comparison is made to chest radiograph 11/20/2018 FINDINGS: Previously noted port catheter has been removed. Calcified aortic knob is seen. The lungs are clear. No evidence of pleural effusion or pneumothorax. IMPRESSION: No acute chest disease. ACT 112: Negative or not required by law. Electronically signed by: Christofer Prakash M.D. 08/05/2023 3:02 PM
--- NOTE | 2023-08-05 15:06 | XRay Report ---
THORACIC SPINE 3 VIEWS HISTORY: Right-sided back pain. COMPARISON: None. FINDINGS: There is no fracture. No subluxation. Minimal S-shaped scoliosis of the thoracic spine. Pa ravertebral soft tissues are unremarkable. Mild degenerative disc disease throughout the majority of the thoracic spine. There is moderate degenerative disc disease at T12-L1. IMPRESSION: No fracture or subluxation within the thoracic spine. Degenerative changes as described above. ACT 112: Negative or not required by law. Electronically signed by: Alexei Braga M.D. 08/05/2023 3:04 PM
[2023-08-05] MEDS: TRIAMCINOLONE ACET 0.1% OINT 80 GM TUBE EXT SCH (15:13)
[2023-08-05] MEDS: cephALEXin 500 MG CAP PO SCH (15:13)
[2023-08-05 15:43] LABS: Lyme Screen Rflx Confirmation Positive (Negative)
--- NOTE | 2023-08-05 18:00 | Communication Note ---
Date of Service: August 05, 2023 Lyme IgG+ and IgM- Discussed with Tata - no known history of Lyme. Could be evidence of old infection, however, Given appearance of R arm lesion will treat with doxycycline. Ordered 14d in case the RUQ pain is radiculitis, however, that would not explain the associated GI symptoms. Updated her at bedside this afternoon.
[2023-08-05] MEDS: ADVANCED PROBIOTIC 625 MG CAPSULE PO SCH (18:12)
[2023-08-05] MEDS: DOXYCYCLINE HYCLATE 100 MG CAP PO SCH (18:12)
[2023-08-05] MEDS: ONDANSETRON INJ 2 MG/ML 2 ML VIAL IV PRN (19:39)
[2023-08-06 06:21] LABS: Hematocrit (blood only) 33.8 % (37.0-47.0); Hemoglobin 11.5 g/dl (12.0-16.0); Immature Granulocytes # (auto) 0.01 K/uL (0.01-0.20); Immature Granulocytes % (auto) 0.2 %; Lymphocytes # (auto) 0.85 K/uL (1.20-3.40); Lymphocytes % (auto) 15.3 %; Mean Corpuscular Hemoglobin 28.3 pg (25.0-34.0); Mean Corpuscular Volume 83.3 fL (80.0-100.0); Mean Platelet Volume 10.6 fL (9.4-12.4); Monocytes # (auto) 0.36 K/uL (0.11-0.59); Monocytes % (auto) 6.5 %; Neutrophils # (auto) 4.33 K/uL (1.40-6.50); Platelet Count 166 K/uL (130-400); RDW Coefficient of Variation 13.2 % (11.5-14.5); Red Blood Count 4.06 M/uL (4.20-5.40); White Blood Count 5.55 K/ul (4.8-10.8)
[2023-08-06 06:34] LABS: Albumin Globulin Ratio 1.4 (0.9-2); Albumin Level 3.9 gm/dl (3.4-5.0); BUN Creatinine Ratio 12.5 (10-20); Bilirubin,Total 1.1 mg/dl (0.2-1.0); Calcium 8.9 mg/dl (8.6-10.3); Creatinine Clr Calc Pharmacy 87.5 ml/min; Est GFR (African American) 107.4 ml/min; Est GFR (Non-African American) 92.6 ml/min; Globulin 2.8 gm/dl (2.5-4.0); Magnesium 1.7 mg/dl (1.7-2.4); Potassium 3.7 mmol/L (3.5-5.1); Total Protein 6.7 gm/dl (6.0-8.3)
--- NOTE | 2023-08-06 06:46 | Ultrasound Report ---
ABDOMINAL ULTRASOUND, RIGHT UPPER QUADRANT HISTORY: Right upper quadrant pain. COMPARISON: CT of the abdomen and pelvis August 05, 2023. FINDINGS: A 7 mm left hepatic lobe cyst is noted. There are no additional hepatic lesions. There is n o biliary ductal dilatation. Common bile duct measures 3 mm in caliber. No gallbladder wall thickenin g is present. No gallstones are identified. The gallbladder is mildly distended. There is sludge with in the gallbladder. Sonographic Kirby sign could not be assessed for given pain medication administr ation. Pancreatic body is normal. Head and tail are obscured. There is no right hydronephrosis. IMPRESSION: 1. No gallstones. No gallbladder wall thickening. Distended gallbladder which contains sludge. No con vincing evidence for acute cholecystitis. 2. No biliary ductal dilatation. ACT 112: Negative or not required by law. Electronically signed by: Pancho Lema M.D. 08/06/2023 6:44 AM
--- NOTE | 2023-08-06 14:57 | Hospitalist Progress Note ---
Date of Service August 06, 2023 Assessment & Plan (1) Right upper quadrant abdominal pain: Plan: biliary? abd u/s with GB sludge no acute cholecystitis, but HIDA is abnormal with low EF suggesting biliary dyskinesia at minimum did have minimally elevated t.bili and AST at presentation; latter already resolved t.bili elevation somewhat chronic other w/u to date negative could be gastric/esophageal in etiology given known h/o GERD cont PPI; add carafate will obtain gen surg consultation consider GI consultation if pain recurs/does not improve with respect to bloating will check KUB x-ray -- assess fecal load; assess for ileus clears for now (2) Sludge in gallbladder: Plan: abd u/s with such see #1 above (3) Abnormal biliary HIDA scan: Plan: no cystic duct obstruction but EF is low suggesting biliary dyskinesia does have chronic, episodic dyspepsia with pain at times see above (4) Rash: Plan: RUE localized inflammation from insect bite? tick-bite? cellulitis? other? doesn't have classic bulls-eye appearance and IgM on Lyme testing is negative which would argue against Lyme is on keflex/doxy - both will cover cellulitis latter will cover Lyme serial exams (5) Positive Lyme disease serology: Plan: lyme screen is positive - IgG only this would suggest either early disseminated Lyme or chronic doxy for now await western blot (6) Acute hyponatremia: Plan: likely 2nd to chronic HCTZ use hold such isotonic fluids overnight urine osm, urine Na noted (7) Gastroesophageal reflux: Plan: see above add PPI - take daily add carafate QID (8) Dyslipidemia: (9) Hypertension: Plan: BPs only mildly elevated despite holding HCTZ follow amlodipine was also placed on hold at time of admission but, again, BPs are only mildly high likely resume amlodipine at d/c Plan care d/w gen surg via [place] correspondence Admission and Anticipated Discharge Date Admission Date: August 05, 2023 Subjective tele overnight wnl patient reports that the severe RUQ pain she had had prior to admission is much better not 100% resolved, but much better retrospectively she has had prior episodes of dyspepsia and mild upper abd discomfort in the past post-prandially no vomiting today but did have emesis yesterday nausea improved denies chest pain or dyspnea or BURNETT does have h/o GERD and uses PPI on prn basis if she has to use PPI she often takes it for about 2 weeks and symptoms improve with such Review of Systems Review of Systems: gen - no fevers or chills skin - rash right upper arm is pruritic; does not remember an obvious tick bite pulm - no cough GI - feels bloated today Physical Exam Physical Exam: gen - sitting in chair, NAD, pleasant eyes - no icterus mouth - MM slightly dry neck - no JVD heart - RRR, s1 s2, no murmur lungs - CTA b/l abd - soft, minimal distension, tender RUQ to deep palpation; no epigastric tenderness; BS+ ext - no edema, pulses 2+ b/l skin - right upper arm ventral aspect with about 4 inch circular area of erythematous skin, warm to touch, punctate bite addie in middle of patch? Results & Data Results & Data Vital Signs (Past 12 Hours) Vital Signs Temp Pulse Resp BP Pulse Ox O2 Del Method 08/06/23 11:26 36.9 C 80 18 143/69 H 98 Room Air 08/06/23 08:01 36.3 C L 83 18 159/67 H 96 Room Air 08/06/23 04:00 36.7 C 68 18 129/84 99 Room Air Laboratory Results Laboratory Results - last 24 hr 08/06/23 08/06/23 05:41 11:53 WBC 5.55 RBC 4.06 L Hgb 11.5 L Hct 33.8 L MCV 83.3 MCH 28.3 MCHC 34.0 RDW Std Deviation 40.0 RDW Coeff of [place] 13.2 Plt Count 166 MPV 10.6 Immature Gran % (Auto) 0.2 Neut % (Auto) 78.0 Lymph % (Auto) 15.3 [place] % (Auto) 6.5 Eos % (Auto) 0.0 Baso % (Auto) 0.0 Neut # (Auto) 4.33 Lymph # (Auto) 0.85 L [place] # (Auto) 0.36 Eos # (Auto) 0.00 Baso # (Auto) 0.00 Immature Gran # (Auto) 0.01 Sodium 131 L Potassium 3.7 Chloride 98 Carbon Dioxide 26 Anion Gap 7 BUN 6 Creatinine 0.48 L Est Cr Clr Drug Dosing 87.5 Est GFR ( Amer) 107.4 Est GFR (Non-Af Amer) 92.6 BUN/Creatinine Ratio 12.5 Glucose 144 H Calcium 8.9 Magnesium 1.7 Total Bilirubin 1.1 H AST 25 ALT 33 Alkaline Phosphatase 101 Total Protein 6.7 Albumin 3.9 Globulin 2.8 Albumin/Globulin Ratio 1.4 Urine Osmolality 543 Ur Random Sodium 65 Babesia microti DNA PCR Pending PG Care Time/CCT Total # of Minutes Spent Total Time Spent with Patient: Total time spent is greater than 50% in coordination of care (as documented) at patient's floor/unit and/or counseling patient: Coding Level of Care Code 28155 SUB INP/OBS CARE 3/50MIN Diagnoses Right upper quadrant abdominal pain R10.11 Sludge in gallbladder K82.8 Abnormal biliary HIDA scan R94.8 Rash R21 Positive Lyme disease serology R76.8 Acute hyponatremia E87.1 Gastroesophageal reflux K21.9 Dyslipidemia E78.5 Hypertension I10
[2023-08-06] MEDS: SIMETHICONE 80 MG CHEW PO PRN (16:14)
[2023-08-06] MEDS: SUCRALFATE 1 GM/10 ML UDC PO SCH (16:15)
--- NOTE | 2023-08-06 17:00 | Surgery Consultation ---
Date of Consultation August 06, 2023 Assessment & Plan (1) Right upper quadrant abdominal pain: 78 yo female with RUQ abdominal pain with gallbladder sludge however no acute cholecystitis. HIDA scan with reduced EF. No leukocytosis. Abdominal exam with mid right abdominal tenderness. No acute indication for surgery at this time. Given symptoms , would recommend outpatient GI work-up and outpatient surgical follow. May need cholecystectomy for biliary dyskinesia pending GI work-up. Recommend advancing diet to low fat diet . Dr. Grant has seen and examined pt, see addendum for further recommendations/plan. Supervising Physician Co-Signing Physician Notes I have seen and examined the patient personally and agree with the above assessment and plan. In brief this is an 78-year-old female with right upper quadrant abdominal pain and nausea. Abdominal ultrasound demonstrates a small amount of gallbladder sludge. HIDA scan was negative for acute cholecystitis. No leukocytosis. Abdomen is soft, with mild right upper abdominal tenderness. There is no indication for urgent surgical intervention. She will require a GI workup, however this should be able to be done as an outpatient. Recommend advance diet as tolerated. History of Present Illness Reason for Consultation: RUQ pain Requesting Physician: Everardo Downing MD Attending Physician: Everardo Downing MD History of Present Illness Tata is a 78 year-old female with history of GERD, HTN, Osteoarthritis, dyslipidemia, breast cancer, who presented to ED with sudden onset of RUQ abdominal pain that started Saturday morning. This is associated with abdominal bloating. She states she has had this intermittently for some time. She has had ct scan of abdomen and pelvis , HIDA scan, and ultrasound showing gallbladder with sludge and no evidence of acute cholecystitis. She currently states her nausea is improved today and has not needed anything for pain today. Tolerated clear liquids today. Allergies Allergy/AdvReac Type Severity Reaction Status Date / Time adhesive tape AdvReac Mild Skin Verified 08/05/23 02:59 irritation ("some tapes") cephalexin AdvReac Mild Vaginitis Verified 08/05/23 02:59 lisinopril AdvReac Mild Cough Verified 08/05/23 02:59 Home Medications Medication Instructions Recorded Confirmed Type walirapo-oxg-jwdae acid 0.4 1 tab PO QAM 08/15/18 08/05/23 History mg-lycopene 300 mcg-lutein 250 mcg tablet (Centrum Silver) rosuvastatin 10 mg tablet 10 mg PO QPM 08/15/18 08/05/23 History pantoprazole 40 mg tablet,delayed 40 mg PO DAILY PRN GERD 12/31/18 08/05/23 History release (Protonix) calcium carbonate 600 mg-vitamin 1 tab PO BID 05/25/19 08/05/23 History D3 5 mcg (200 unit) tablet (Calcium 600 + D(3)) anastrozole 1 mg tablet 1 mg PO QAM 08/06/19 08/05/23 History amlodipine 5 mg tablet 5 mg PO HS 08/05/23 08/05/23 History amoxicillin 500 mg capsule 500 mg PO ONCE PRN prior to dental 08/05/23 08/05/23 History procedures coenzyme Q10 50 mg capsule (Co 100 mg PO QPM 08/05/23 08/05/23 History Q-10) famotidine 20 mg tablet 20 mg PO HS PRN GERD 08/05/23 08/05/23 History glucosamine sulfate 1,000 mg 1,000 mg PO BID 08/05/23 08/05/23 History capsule hydrochlorothiazide 25 mg tablet 25 mg PO QAM 08/05/23 08/05/23 History nystatin 100,000 unit/gram topical 1 applic topical BID PRN Rash 08/05/23 08/05/23 History powder omega-3 fatty acids 1,000 mg 1,000 mg PO HS 08/05/23 08/05/23 History capsule Patient History Medical History (Updated 08/05/23 @ 05:35 by David Lundy MD) Port-A-Cath in place History of neuropathy Legs "Resolved" with steroid injections by pain management Hx of squamous cell carcinoma of skin Hx of skin cancer, basal cell History of breast cancer Left breast 2018 [facility] [place], chemo completed 12/2018, finished radiation 02/2019 Osteoarthritis GERD (gastroesophageal reflux disease) Hx of rosacea Hx of migraines History of palpitations 2004- s/p unremarkable cardiac cath No issues since Hypertension Hyperlipidemia Surgical History (Updated 01/17/23 @ 10:39 by Susan Dove RN) History of removal of Port-a-Cath (01/17/23) Access Port Removal(Not Applicable) - Blu Payne MD, FACS History of left hip replacement History of right hip replacement Hx of bilateral cataract extraction Port-A-Cath in place Insertion of A-Port Right Subclavian Vein Dr. Payne -5 H/O excision of mass SCC ("skin between breasts") H/O partial mastectomy Left (09/2018) + LNB Status post epidural steroid injection done 06/2017 and 07/2017 Hx of total hysterectomy Hx of rotator cuff surgery right Hx of foot surgery right History of colonoscopy History of Mohs micrographic surgery for skin cancer nose History of cardiac cath 2003 (abnormal stress test)- no stents/abnormal findings Family History Father , age 80 stroke Family history of diabetes mellitus Brother Age: 83 Family history of diabetes mellitus Hypertension Heart disease Grandmother (Paternal) , in her seventies perhaps cause unknown Family history of diabetes mellitus Sister Age: 63 Hypertension Breast cancer Mother , of heart disease Heart disease Denies family history of Ovarian cancer Colorectal cancer Social History Smoking Status: Former smoker Tobacco Type: Cigarettes Second Hand Exposure: No; Do You Dip or Chew Tobacco: No; Hx Alcohol Use: Yes Alcohol type: wine Hx Substance Use: No Preferred Language: [place] Communication Ability: Effective Visual Impairment: No Limitations [employer] Learning Support Teacher Required: No Beliefs That Will Affect Care: None marital status: Current Living Situation: Spouse Other Information That Helps Us Care for You: No Feels Safe at Home: Yes Safety Concerns: Feels Safe At This Time Assistive Devices: Denture - Upper Physical Exam Constitutional: WD/WN, vitals as above cooperative and comfortable; no acute distress and not ill appearing Respiratory: normal respiratory effort; no respiratory distress Gastrointestinal (Abdomen): Inspection/Auscultation: abdomen normal to inspection and + abdomen distended (mild) Percussion/Palpation: + abdomen tender (right mid abdomen) and abdomen soft; no guarding, abdomen not rigid and abdomen not firm Skin: no rashes, warm and dry Psychiatric: A+Ox3, euthymic affect Results & Data Vital Signs (Past 12 Hours) Vital Signs Temp Pulse Resp BP Pulse Ox O2 Del Method 08/06/23 16:00 37.2 C 81 18 143/71 H 97 Room Air 08/06/23 11:26 36.9 C 80 18 143/69 H 98 Room Air 08/06/23 08:01 36.3 C L 83 18 159/67 H 96 Room Air Laboratory Results 08/06/23 08/06/23 Range/Units 11:53 05:41 WBC 5.55 (4.8-10.8) K/ul RBC 4.06 L (4.20-5.40) M/uL Hgb 11.5 L (12.0-16.0) g/dl Hct 33.8 L (37.0-47.0) % MCV 83.3 (80.0-100.0) fL MCH 28.3 (25.0-34.0) pg MCHC 34.0 (32.0-36.0) g/dL RDW Std Deviation 40.0 (36.4-46.3) fL RDW Coeff of Scott 13.2 (11.5-14.5) % Plt Count 166 (130-400) K/uL MPV 10.6 (9.4-12.4) fL Immature Gran % (Auto) 0.2 % Neut % (Auto) 78.0 % Lymph % (Auto) 15.3 % [place] % (Auto) 6.5 % Eos % (Auto) 0.0 % Baso % (Auto) 0.0 % Neut # (Auto) 4.33 (1.40-6.50) K/uL Lymph # (Auto) 0.85 L (1.20-3.40) K/uL [place] # (Auto) 0.36 (0.11-0.59) K/uL Eos # (Auto) 0.00 (0.00-0.50) K/uL Baso # (Auto) 0.00 (0.00-0.20) K/uL Immature Gran # (Auto) 0.01 (0.01-0.20) K/uL Sodium 131 L (136-145) mmol/L Potassium 3.7 (3.5-5.1) mmol/L Chloride 98 (98-107) mmol/L Carbon Dioxide 26 (21-32) mmol/L Anion Gap 7 (3-11) BUN 6 (6-23) mg/dl Creatinine 0.48 L (0.6-1.2) mg/dl Est Cr Clr Drug Dosing 87.5 ml/min Est GFR ( Amer) 107.4 ml/min Est GFR (Non-Af Amer) 92.6 ml/min BUN/Creatinine Ratio 12.5 (10-20) Glucose 144 H (70-99(Fasting)) mg/dl Calcium 8.9 (8.6-10.3) mg/dl Magnesium 1.7 (1.7-2.4) mg/dl Total Bilirubin 1.1 H (0.2-1.0) mg/dl AST 25 (13-39) U/L ALT 33 (7-52) U/L Alkaline Phosphatase 101 (34-104) U/L Total Protein 6.7 (6.0-8.3) gm/dl Albumin 3.9 (3.4-5.0) gm/dl Globulin 2.8 (2.5-4.0) gm/dl Albumin/Globulin Ratio 1.4 (0.9-2) Urine Osmolality 543 (500-800) mOsm/kg Ur Random Sodium 65 mmol/L Babesia microti DNA PCR Pending
--- NOTE | 2023-08-06 17:16 | XRay Report ---
KUB HISTORY: bloating; eval stool load/gas pattern COMPARISON: Abdomen and pelvis CT 08/05/2023. FINDINGS: Mildly distended gas-filled large and small bowel seen throughout the abdomen. This suggest s a mild ileus. There is moderate fecal retention. Bilateral total hip arthroplasties are noted. The lung bases are clear. No renal calculi. No ureteral calculi. No pneumoperitoneum or pneumatosis. IMPRESSION: Mildly distended gas-filled large and small bowel seen throughout the abdomen. This suggests an ileus . ACT 112: Negative or not required by law. Electronically signed by: Alexei Braga M.D. 08/06/2023 5:15 PM
[2023-08-06] MEDS: SODIUM CHLORIDE 0.9% 1,000 ML IV SCH (17:58)
[2023-08-06] MEDS: POLYETHYLENE (MIRALAX) 17 GM PACK PO PRN (21:08)
[2023-08-07 08:10] LABS: Basophils # (auto) 0.01 K/uL (0.00-0.20); Basophils % (auto) 0.1 %; Eosinophils # (auto) 0.02 K/uL (0.00-0.50); Eosinophils % (auto) 0.3 %; Hematocrit (blood only) 33.6 % (37.0-47.0); Hemoglobin 11.9 g/dl (12.0-16.0); Immature Granulocytes # (auto) 0.03 K/uL (0.01-0.20); Immature Granulocytes % (auto) 0.4 %; Lymphocytes % (auto) 23.4 %; Mean Corpuscular Hemoglobin 28.7 pg (25.0-34.0); Mean Corpuscular Hgb Conc 35.4 g/dL (32.0-36.0); Mean Platelet Volume 10.4 fL (9.4-12.4); Monocytes # (auto) 0.64 K/uL (0.11-0.59); Monocytes % (auto) 8.3 %; Neutrophils # (auto) 5.19 K/uL (1.40-6.50); Neutrophils % (auto) 67.5 %; Platelet Count 221 K/uL (130-400); RDW Standard Deviation 38.4 fL (36.4-46.3); Red Blood Count 4.15 M/uL (4.20-5.40); White Blood Count 7.69 K/ul (4.8-10.8)
[2023-08-07 08:44] LABS: Albumin Globulin Ratio 1.3 (0.9-2); Albumin Level 3.6 gm/dl (3.4-5.0); BUN Creatinine Ratio 11.4 (10-20); Creatinine Clr Calc Pharmacy 95.5 ml/min; Est GFR (African American) 110.5 ml/min; Est GFR (Non-African American) 95.3 ml/min; Globulin 2.8 gm/dl (2.5-4.0); Magnesium 1.7 mg/dl (1.7-2.4); Potassium 3.6 mmol/L (3.5-5.1); Total Protein 6.4 gm/dl (6.0-8.3)
[2023-08-07] MEDS: OPTIRAY 320 100ml IV ONE (13:39)
--- NOTE | 2023-08-07 14:00 | CT Scan Report ---
CT OF THE ABDOMEN AND PELVIS WITH CONTRAST CLINICAL HISTORY: abnl appendix, ileus, bloating, pain COMPARISON STUDY: CT of the abdomen and pelvis August 05, 2023. Upper quadrant ultrasound and KUB July [id number]. TECHNIQUE: Following IV administration of 94 mL of Optiray, axial images of the abdomen and pelvis we re obtained from the lung bases to the proximal femurs. Images were reviewed in the axial, sagittal, and coronal planes. IV contrast was administered without complication. Automated exposure control wa s utilized for the study. A dose lowering technique was utilized adhering to the principles of ALARA . Oral contrast was administered. CT DOSE: 1018.46 mGy.cm FINDINGS: Lung bases are unremarkable. No pneumatosis, free air or portal venous gas is present. A fe w tiny hepatic lesions favor cysts. There is no biliary or pancreatic ductal dilatation. Spleen, adre nal glands and kidneys are unremarkable. Is no hydronephrosis. No peripancreatic or pericholecystic i nfiltration is present. No abdominal or pelvic lymphadenopathy is present. The caliber and wall thick ness of small and large bowel are normal. There is a moderate amount of poorly formed stool within th e right colon. The appendix is normal. Images of the pelvis are degraded by streak artifact from bila teral hip arthroplasties. No acute fractures are identified within visualized skeletal structures. IMPRESSION: 1. Normal appendix. No bowel obstruction. No bowel wall thickening. 2. Moderate amount of poorly formed stool within the right colon. ACT 112: Negative or not required by law. Electronically signed by: Pancho Lema M.D. 08/07/2023 1:58 PM
--- NOTE | 2023-08-07 14:46 | Hospitalist Progress Note ---
Date of Service August 07, 2023 Assessment & Plan (1) Right upper quadrant abdominal pain: Plan: extensive work-up for this pain has revealed gall bladder sludge but no signs of acute cholecystitis. HIDA scan without cystic duct obstruction but low EF suggesting biliary dyskinesia. has h/o GERD and this has been aggressively treated with PPI/carafate. I repeated CT abd/pelvis today with both IV/PO contrast. NO appendicitis. NO pancreatitis. NO colitis. NO cholecystitis. Radiology mentions there is moderate amount of right-sided stool - this could be contributing to her GI complaints. Hopefully the PO contrast acts as a cathartic. To evacuate the rectum will give dulcolax suppos x 1. Cont miralax. Gen surg has seen for the abnormal HIDA/RUQ u/s - no lap anna at this time, potentially an elective surgery as outpatient down the line. Repeat LFTs and lipase today wnl; CBC without leukocytosis. (2) Sludge in gallbladder: Plan: see #1 above (3) Abnormal biliary HIDA scan: Plan: no cystic duct obstruction but EF is low suggesting biliary dyskinesia does have chronic, episodic dyspepsia with pain at times see above (4) Rash: Plan: RUE localized inflammation from insect bite? tick-bite? cellulitis? other? doesn't have classic bulls-eye appearance and IgM on Lyme testing is negative which would argue against Lyme is on keflex/doxy - both will cover cellulitis latter will cover Lyme this rash is improving cont current abx (5) Positive Lyme disease serology: Plan: lyme screen is positive - IgG only this would suggest either early disseminated Lyme or chronic doxy for now await western blot (6) Acute hyponatremia: Plan: likely 2nd to chronic HCTZ use +/- vomiting +/- poor PO intake urine osm, urine Na noted Na level today noted will simply follow Na levels; is not symptomatic from the mild hyponatremia (7) Gastroesophageal reflux: Plan: see above cont PPI - take daily cont carafate QID (8) Dyslipidemia: (9) Hypertension: Plan: BPs only mildly elevated despite holding HCTZ and amlodipine follow BPs Plan change observation status to full admission status keep on full liquid diet today; advance to low fat tomorrow Admission and Anticipated Discharge Date Admission Date: August 07, 2023 Subjective no abdominal "pain" - just a mild discomfort central and right side of abdomen passed a tiny "pebble" of firm/hard stool earlier today she has not had a satisfactory bowel movement in several days she typically is very regular - daily BM is her norm drank all the PO contrast for her CT scan today -- no BM following such thinks that amlodipine for her HTN has contributed to constipation denies vomiting walking the hallways Review of Systems Review of Systems: gen - no fevers or chills cv - no chest pain pulm - no dyspnea or BURNETT Physical Exam Physical Exam: gen - sitting in chair, NAD, pleasant; nontoxic mouth - MMM neck - no JVD heart - RRR, s1 s2, no murmur lungs - CTA b/l abd - soft, nol distension today, slightly tender epigastric region; BS+ ext - no edema, pulses 2+ b/l skin - right upper arm ventral aspect with about 4 inch circular area of erythematous skin -- improved Results & Data Results & Data Vital Signs (Past 12 Hours) Vital Signs Temp Pulse Resp BP Pulse Ox O2 Del Method 08/07/23 07:36 36.7 C 88 18 146/77 H 100 Room Air 08/07/23 03:26 37.2 C 72 18 125/74 93 Room Air Laboratory Results Laboratory Results - last 48 hr 08/06/23 08/07/23 11:53 07:42 WBC 7.69 RBC 4.15 L Hgb 11.9 L Hct 33.6 L MCV 81.0 MCH 28.7 MCHC 35.4 RDW Std Deviation 38.4 RDW Coeff of Scott 13.0 Plt Count 221 MPV 10.4 Immature Gran % (Auto) 0.4 Neut % (Auto) 67.5 Lymph % (Auto) 23.4 [place] % (Auto) 8.3 Eos % (Auto) 0.3 Baso % (Auto) 0.1 Neut # (Auto) 5.19 Lymph # (Auto) 1.80 [place] # (Auto) 0.64 H Eos # (Auto) 0.02 Baso # (Auto) 0.01 Immature Gran # (Auto) 0.03 Sodium 129 L Potassium 3.6 Chloride 95 L Carbon Dioxide 27 Anion Gap 7 BUN 5 L Creatinine 0.44 L Est Cr Clr Drug Dosing 95.5 Est GFR ( Amer) 110.5 Est GFR (Non-Af Amer) 95.3 BUN/Creatinine Ratio 11.4 Glucose 136 H Calcium 9.0 Magnesium 1.7 Total Bilirubin 1.0 AST 24 ALT 26 Alkaline Phosphatase 92 Total Protein 6.4 Albumin 3.6 Globulin 2.8 Albumin/Globulin Ratio 1.3 Lipase 9 L Urine Osmolality 543 Ur Random Sodium 65 Diagnostic Findings Abdomen/Pelvis CT 08/07/23 09:14 CT OF THE ABDOMEN AND PELVIS WITH CONTRAST CLINICAL HISTORY: abnl appendix, ileus, bloating, pain COMPARISON STUDY: CT of the abdomen and pelvis August 05, 2023. Upper quadrant ultrasound and KUB August 06, 2023. TECHNIQUE: Following IV administration of 94 mL of Optiray, axial images of the abdomen and pelvis were obtained from the lung bases to the proximal femurs. Images were reviewed in the axial, sagittal, and coronal planes. IV contrast was administered without complication. Automated exposure control was utilized for the study. A dose lowering technique was utilized adhering to the principles of ALARA. Oral contrast was administered. CT DOSE: 1018.46 mGy.cm FINDINGS: Lung bases are unremarkable. No pneumatosis, free air or portal venous gas is present. A few tiny hepatic lesions favor cysts. There is no biliary or pancreatic ductal dilatation. Spleen, adrenal glands and kidneys are unremarkable. Is no hydronephrosis. No peripancreatic or pericholecystic infiltration is present. No abdominal or pelvic lymphadenopathy is present. The caliber and wall thickness of small and large bowel are normal. There is a moderate amount of poorly formed stool within the right colon. The appendix is normal. Images of the pelvis are degraded by streak artifact from bilateral hip arthroplasties. No acute fractures are identified within visualized skeletal structures. IMPRESSION: 1. Normal appendix. No bowel obstruction. No bowel wall thickening. 2. Moderate amount of poorly formed stool within the right colon. ACT 112: Negative or not required by law. Electronically signed by: Pancho Lema M.D. 08/07/2023 1:58 PM PG Care Time/CCT Total # of Minutes Spent Total Time Spent with Patient: Total time spent is greater than 50% in coordination of care (as documented) at patient's floor/unit and/or counseling patient: Coding Level of Care Code 79064 SUB INP/OBS CARE 2/35MIN Diagnoses Right upper quadrant abdominal pain R10.11 Sludge in gallbladder K82.8 Abnormal biliary HIDA scan R94.8 Rash R21 Positive Lyme disease serology R76.8 Acute hyponatremia E87.1 Gastroesophageal reflux K21.9 Dyslipidemia E78.5 Hypertension I10
[2023-08-07] MEDS: bisacodyL 10 MG SUPP PR STA (16:35)
[2023-08-07] MEDS: MELATONIN 3 MG TAB PO SCH (21:19)
[2023-08-07] MEDS: hydrOXYzine HCl 10 MG TAB PO SCH (21:19)
[2023-08-08 08:30] LABS: BUN Creatinine Ratio 9.3 (10-20); Calcium 9.2 mg/dl (8.6-10.3); Creatinine Clr Calc Pharmacy 77.8 ml/min; Est GFR (African American) 103.3 ml/min; Est GFR (Non-African American) 89.1 ml/min; Potassium 3.9 mmol/L (3.5-5.1)
[2023-08-08] MEDS: bisacodyL 5 MG TABEC PO ONE (08:39)
[2023-08-08] MEDS: PANTOprazole 40 MG TAB PO SCH (08:40)
[2023-08-08] MEDS: POLYETHYLENE (MIRALAX) 17 GM PACK PO SCH ×2 (08:43→11:35)
--- NOTE | 2023-08-08 20:38 | Hospitalist Progress Note ---
Date of Service August 08, 2023 Assessment & Plan (1) Right upper quadrant abdominal pain: Plan: resolved extensive work-up for this pain revealed gall bladder sludge but no signs of acute cholecystitis. HIDA scan without cystic duct obstruction but low EF suggesting biliary dyskinesia. has h/o GERD and this has been aggressively treated with PPI/carafate. I repeated CT abd/pelvis 08/07/23 with both IV/PO contrast. NO appendicitis. NO pancreatitis. NO colitis. NO cholecystitis. Radiology mentioned there was moderate amount of right-sided stool - suspect this is the main cause of current GI complaints. Gen surg had seen for the abnormal HIDA/RUQ u/s - no lap anna at this time, potentially an elective surgery as outpatient down the line. Repeat LFTs and lipase yesterday wnl; CBC without leukocytosis. (2) Sludge in gallbladder: Plan: see #1 above (3) Abnormal biliary HIDA scan: Plan: no cystic duct obstruction but EF is low suggesting biliary dyskinesia does have chronic, episodic dyspepsia with pain at times see above (4) Rash: Plan: RUE localized inflammation from insect bite? tick-bite? cellulitis? other? doesn't have classic bulls-eye appearance and IgM on Lyme testing is negative which would argue against Lyme is on keflex/doxy - both will cover cellulitis latter will cover Lyme this rash is improving cont current abx (5) Positive Lyme disease serology: Plan: lyme screen is positive - IgG only this would suggest either early disseminated Lyme or chronic doxy for now await western blot (6) Acute hyponatremia: Plan: likely 2nd to chronic HCTZ use +/- vomiting +/- poor PO intake urine osm, urine Na noted Na level today improved to 130 will simply follow Na levels; is not symptomatic from the mild hyponatremia would not resume HCTZ at discharge (7) Gastroesophageal reflux: Plan: see above cont PPI cont carafate QID (8) Dyslipidemia: (9) Hypertension: Plan: BPs only mildly elevated despite holding HCTZ and amlodipine follow BPs consider not resuming either - the HCTZ is causing low Na, and the amlodipine may have contributed to constipation consider beta topher or RASHIDA/ARB in satya (10) Constipation: Plan: severe will give 5 doses of miralax today for "clean-out" if no success can try lactulose or milk of mag suspect current GI complaints are from the constipation allow low fat diet today - more normal food may help with colonic transit Plan hopefully d/c in am tomorrow Admission and Anticipated Discharge Date Admission Date: August 07, 2023 Subjective tele overnight wnl despite multiple agents for constipation (PO & UT) she has not had a significant bowel movement since the previous Saturday she still has mild stomach upset/ discomfort but the location has shifted from right-sided / RUQ to more central / left-sided she is passing flatus she is tolerating full liquids without nausea or emesis ambulating she is frustrated that the bowels haven't moved is feeling more hungry at this point slept better last night Review of Systems Review of Systems: gen - no fevers skin - rash RUE improved again in her estimation pulm - no dyspnea or BURNETT CV - no chest pain Physical Exam Physical Exam: gen - looks better today, more rested; NAD mouth - MMM neck - no JVD heart - RRR, s1 s2, no murmur lungs - CTA b/l abd - soft, ND, ND, BS+; normal exam today ext - no edema, pulses 2+ b/l skin - right upper arm ventral aspect with about 4 inch circular area of erythematous skin -- erythema continues to fade; warmth also improved; extent of erythema getting smaller Results & Data Results & Data Vital Signs (Past 12 Hours) Vital Signs Temp Pulse Resp BP Pulse Ox O2 Del Method 08/08/23 20:09 36.9 C 80 20 134/73 98 Room Air 08/08/23 15:51 36.9 C 76 18 150/76 H 97 Room Air Laboratory Results Laboratory Results - last 24 hr 08/08/23 07:25 Sodium 130 L Potassium 3.9 Chloride 93 L Carbon Dioxide 33 H Anion Gap 4 BUN 5 L Creatinine 0.54 L Est Cr Clr Drug Dosing 77.8 Est GFR ( Amer) 103.3 Est GFR (Non-Af Amer) 89.1 BUN/Creatinine Ratio 9.3 L Glucose 122 H Calcium 9.2 PG Care Time/CCT Total # of Minutes Spent Total Time Spent with Patient: Total time spent is greater than 50% in coordination of care (as documented) at patient's floor/unit and/or counseling patient: Coding Level of Care Code 01118 SUB INP/OBS CARE 2/35MIN Diagnoses Right upper quadrant abdominal pain R10.11 Sludge in gallbladder K82.8 Abnormal biliary HIDA scan R94.8 Rash R21 Positive Lyme disease serology R76.8 Acute hyponatremia E87.1 Gastroesophageal reflux K21.9 Dyslipidemia E78.5 Hypertension I10 Constipation K59.00
[2023-08-09] MEDS: ACETAMINOPHEN 325 MG TAB PO PRN (03:23)
[2023-08-09 08:14] LABS: BUN Creatinine Ratio 11.5 (10-20); Calcium 8.9 mg/dl (8.6-10.3); Creatinine Clr Calc Pharmacy 68.9 ml/min; Est GFR (African American) 99.2 ml/min; Est GFR (Non-African American) 85.6 ml/min
[2023-08-09 08:29] LABS: Thyroid Stimulating Hormone 1.942 uIu/ml (0.300-4.500)
--- NOTE | 2023-08-09 11:28 | Gastrointestinal Consultation ---
Date of Consultation August 09, 2023 Assessment & Plan (1) Constipation: Plan Patient is an 78 year old female who presented to the hospital for evaluation of RUQ pain. She did have hida scan with EF of 28% but surgery felt no surgery needed at this time and advised GI work up. She had CT showing moderate stool burden. she feels symptoms have improved with several doses of miralax. I discussed with the patient that even though she typically moves her bowels daily that it does seem she has some constipation issues which may stem from her starting a calcium channel topher as an outpatient. she has not had reoccurrence of her pain today. - primary team is ordering a KUB to assesss stool burden, can await results. - continue with miralax 17gm bid. we discussed continuing on this. if she develops diarrhea, recommend she titrate the dose down. - she is not interested in any GI endoscopic procedures, nor do I think she needs one at this time. Supervising Physician Co-Signing Physician Notes Agree with HERMILO Martines as above Interviewed and examined patient and agree with above Abd: Soft, NT, ND, +BS Continue current therapy and supportive care Feeling much better at present Recommend outpatient f/u with GI for further evaluation and recommendations. History of Present Illness Reason for Consultation: ongoing RUQ pain Requesting Physician: Everardo Downing MD Attending Physician: Everardo Downing MD History of Present Illness Patient is an 78 year old female who presented to the ED on 08/04 with complaints of sudden onset RUQ pain. she admits that she also had bloating with this and does admit to some bloating at baseline. During her work up she had HIDA scan showing an EF of 28%. surgery had seen the patient and recommended GI work up prior to any surgical procedures. She did have CT done 08/06 showing moderate stool in the right colon. She was given several doses of miralax which produced several bowel movements. She tells me that she saw resolution of her abdominal pain after this, however later that evening she did have some of the pain return, though not as bad as before. She tells me that after this she did have another bowel movement that was fairly large and that her pain did resolve again. The last time she had pain was last evening. She tolerated her breakfast today and did not have reoccurrence of the pain. She also moved her bowels this morning. She tells me that typically she does move her bowels daily. she did not appreciate any constipation other than when her blood pressure medication was changed earlier this year, but she feels that that resolved. no blood in the stools or melena. she has never had a colonoscopy or an EGD. rest of GI ros are unremarkable. Allergies Allergy/AdvReac Type Severity Reaction Status Date / Time adhesive tape AdvReac Mild Skin Verified 08/05/23 02:59 irritation ("some tapes") cephalexin AdvReac Mild Vaginitis Verified 08/05/23 02:59 lisinopril AdvReac Mild Cough Verified 08/05/23 02:59 Home Medications Medication Instructions Recorded Confirmed Type [id number] acid 0.4 1 tab PO QAM 08/15/18 08/05/23 History mg-lycopene 300 mcg-lutein 250 mcg tablet (Centrum Silver) rosuvastatin 10 mg tablet 10 mg PO QPM 08/15/18 08/05/23 History pantoprazole 40 mg tablet,delayed 40 mg PO DAILY PRN GERD 12/31/18 08/05/23 History release (Protonix) calcium carbonate 600 mg-vitamin 1 tab PO BID 05/25/19 08/05/23 History D3 5 mcg (200 unit) tablet (Calcium 600 + D(3)) anastrozole 1 mg tablet 1 mg PO QAM 08/06/19 08/05/23 History amlodipine 5 mg tablet 5 mg PO HS 08/05/23 08/05/23 History amoxicillin 500 mg capsule 500 mg PO ONCE PRN prior to dental 08/05/23 08/05/23 History procedures coenzyme Q10 50 mg capsule (Co 100 mg PO QPM 08/05/23 08/05/23 History Q-10) famotidine 20 mg tablet 20 mg PO HS PRN GERD 08/05/23 08/05/23 History glucosamine sulfate 1,000 mg 1,000 mg PO BID 08/05/23 08/05/23 History capsule hydrochlorothiazide 25 mg tablet 25 mg PO QAM 08/05/23 08/05/23 History nystatin 100,000 unit/gram topical 1 applic topical BID PRN Rash 08/05/23 08/05/23 History powder omega-3 fatty acids 1,000 mg 1,000 mg PO HS 08/05/23 08/05/23 History capsule Patient History Medical History (Updated 08/09/23 @ 04:33 by Everardo Downing MD) Port-A-Cath in place History of neuropathy Legs "Resolved" with steroid injections by pain management Hx of squamous cell carcinoma of skin Hx of skin cancer, basal cell History of breast cancer Left breast 2018 [facility] [place], chemo completed 12/2018, finished radiation 02/2019 Osteoarthritis GERD (gastroesophageal reflux disease) Hx of rosacea Hx of migraines History of palpitations 2003- s/p unremarkable cardiac cath No issues since Hypertension Hyperlipidemia Surgical History (Updated 01/17/23 @ 10:39 by Susan Dove RN) History of removal of Port-a-Cath (01/17/23) Access Port Removal(Not Applicable) - Blu Payne MD, FACS History of left hip replacement History of right hip replacement Hx of bilateral cataract extraction Port-A-Cath in place Insertion of A-Port Right Subclavian Vein Dr. Payne 11-20-18 H/O excision of mass SCC ("skin between breasts") H/O partial mastectomy Left (09/2018) + LNB Status post epidural steroid injection done 06/2017 and 07/2017 Hx of total hysterectomy Hx of rotator cuff surgery right Hx of foot surgery right History of colonoscopy History of Mohs micrographic surgery for skin cancer nose History of cardiac cath 2003 (abnormal stress test)- no stents/abnormal findings Family History Father , age 80 stroke Family history of diabetes mellitus Brother Age: 83 Family history of diabetes mellitus Hypertension Heart disease Grandmother (Paternal) , in her seventies perhaps cause unknown Family history of diabetes mellitus Sister Age: 63 Hypertension Breast cancer Mother , of heart disease Heart disease Denies family history of Ovarian cancer Colorectal cancer Social History Smoking Status: Former smoker Tobacco Type: Cigarettes Second Hand Exposure: No; Do You Dip or Chew Tobacco: No; Hx Alcohol Use: Yes Alcohol type: wine Hx Substance Use: No Preferred Language: Welsh Communication Ability: Effective Visual Impairment: No Limitations Director Quality Systems Required: No Beliefs That Will Affect Care: None marital status: Current Living Situation: Spouse Other Information That Helps Us Care for You: No Feels Safe at Home: Yes Safety Concerns: Feels Safe At This Time Assistive Devices: Denture - Upper Review of Systems Review of Systems: All systems reviewed & are unremarkable except as noted in HPI & below Physical Exam Constitutional: WD/WN, vitals as above Respiratory: normal respiratory effort, lungs clear to auscultation Cardiovascular: RRR, no murmur, no edema Gastrointestinal (Abdomen): normal bowel sounds, soft, nontender, no hepatosplenomegaly Psychiatric: Orientation: alert and oriented x 3 Affect: euthymic affect Results & Data Vital Signs (Past 12 Hours) Vital Signs Temp Pulse Resp BP Pulse Ox O2 Del Method 08/09/23 08:18 97.5 F L 71 18 148/78 H 97 Room Air 08/08/23 23:30 97.5 F L 96 H 20 152/77 H 98 Room Air Coding Level of Care Code 88551 INT INP/OBS CARE 2/55MIN Diagnoses Constipation K59.00
[2023-08-09 11:40] LABS: Albumin Level 3.7 gm/dl (3.4-5.0); Bilirubin Direct 0.2 mg/dl (0-0.2); Bilirubin,Total 0.9 mg/dl (0.2-1.0)
[2023-08-09 11:41] LABS: Troponin I High Sensitivity 6.6 pg/ml (0-14)
[2023-08-09 11:46] LABS: Total Protein 6.8 gm/dl (6.0-8.3)
--- NOTE | 2023-08-09 12:39 | XRay Report ---
XR abdomen 2V w PA chest HISTORY: 78 years-old Female ongoing upper abd pain with bloating COMPARISON: CT 08/07/2023 TECHNIQUE: PA view of the chest with erect and supine views of the abdomen FINDINGS: Cardiac silhouette is mildly enlarged. No pneumothorax, pleural effusion, airspace consolidation or p ulmonary edema. No free air. Bilateral hip arthroplasties. No acute fracture. Scattered large and small bowel air-flu id levels. No evidence of a high-grade small bowel obstruction. Mild distention of the large and smal l bowel. IMPRESSION: 1. No acute processes of the chest. 2. Mild large and small bowel gaseous distention with scattered air fluid levels, new from the prior CT exam suggestive of ileus. Distal obstruction considered less likely. Follow-up recommended. ACT 112: Negative or not required by law. The above report was generated using voice recognition software. It may contain grammatical, syntax o r spelling errors. Electronically signed by: Wilver Henderson M.D. 08/09/2023 12:37 PM
[2023-08-09 12:47] LABS: Babesia microti DNA Not Detected (Not Detected)
--- NOTE | 2023-08-09 14:08 | Electrocardiogram Report ---
Test Reason : Blood Pressure : / mmHG Vent. Rate : 080 BPM Atrial Rate : 080 BPM P-R Int : 168 ms QRS Dur : 084 ms QT Int : 394 ms P-R-T Axes : 033 017 057 degrees QTc Int : 454 ms Sinus rhythm with Premature atrial complexes Otherwise normal ECG When compared with ECG of 08-JAN-2023 09:27, Premature atrial complexes are now Present Confirmed by Pawel Blair ([id number]) on 08/09/2023 2:07:37 PM Referred By: REFERRED SELF Confirmed By:Pawel Blair
--- NOTE | 2023-08-09 18:44 | Hospitalist Progress Note ---
Date of Service August 09, 2023 Assessment & Plan (1) Right upper quadrant abdominal pain: Plan: had resolved, but then had discomfort again overnight extensive work-up for this pain revealed gall bladder sludge but no signs of acute cholecystitis. HIDA scan without cystic duct obstruction but low EF suggesting biliary dyskinesia. has h/o GERD and this has been aggressively treated with PPI/carafate. I repeated CT abd/pelvis 08/07/23 with both IV/PO contrast. NO appendicitis. NO pancreatitis. NO colitis. NO cholecystitis. Radiology mentioned there was moderate amount of right-sided stool -- she reported NO stools since the previous weekend. Did bowel "prep" yesterday -- took about 7-8 doses of miralax -- NUMEROUS stools (Brown, no blood) since yesterday. Gen surg had seen for the abnormal HIDA/RUQ u/s - no lap anna at this time, potentially an elective surgery as outpatient down the line. Repeat LFTs and lipase again wnl; CBC without leukocytosis. EKG w/o ischemic change. Repeat x-rays of abdomen with some gaseous distension - radiology calling it an ileus - but she is having very frequent stools, thus this is not an ileus. Obtained GI consult - appreciate their assistance. They feel that the discomforts/pains/bloat/etc has been from the severe constipation. Will place the miralax on hold tonight and tomorrow am; allow GI tract to calm down. Watch overnight. (2) Sludge in gallbladder: Plan: see #1 above (3) Abnormal biliary HIDA scan: Plan: no cystic duct obstruction but EF is low suggesting biliary dyskinesia does have chronic, episodic dyspepsia with pain at times see above (4) Rash: Plan: RUE IMPROVING/RESOLVING localized inflammation from insect bite? tick-bite? cellulitis? other? doesn't have classic bulls-eye appearance and IgM on Lyme testing is negative which would argue against Lyme is on keflex/doxy - both will cover cellulitis latter will cover Lyme cont current abx (5) Positive Lyme disease serology: Plan: lyme screen is positive - IgG only this would suggest either early disseminated Lyme or chronic doxy for now await western blot (6) Acute hyponatremia: Plan: likely 2nd to chronic HCTZ use +/- vomiting +/- poor PO intake urine osm, urine Na noted Na level stable at 130 will simply follow Na levels; is not symptomatic from the mild hyponatremia would not resume HCTZ at discharge (7) Gastroesophageal reflux: Plan: see above cont PPI cont carafate QID outpatient EGD?? recommend she stay on PPI and prn carafate until she has outpatient f/u with GI (8) Dyslipidemia: (9) Hypertension: Plan: BPs only mildly elevated despite holding HCTZ and amlodipine follow BPs consider not resuming either - the HCTZ is causing low Na, and the amlodipine may have contributed to constipation consider beta topher in satya, if needed (10) Constipation: Plan: severe but now resolved see above Plan hopefully d/c in am tomorrow if she has a good night Admission and Anticipated Discharge Date Admission Date: August 07, 2023 Subjective no nausea no emesis but still very bloated and gassy despite such she continues to eat well w/o any intolerance, drink well, and is ambulating she did have some pain - not related to eating - in the RUQ that radiated to the back which was similar to her presenting pain at time of admission this is occurring infrequently but [id number] she had the pain last night took tylenol for it with relief of symptoms Review of Systems Review of Systems: gen - still no fevers or chills cv - no chest pain pulm - no dyspnea or [facility] - did have more loose stool overnight Physical Exam Physical Exam: gen - NAD, looks well, nontoxic, pleasant mouth - MMM neck - no JVD heart - RRR, s1 s2, no murmur lungs - CTA b/l abd - soft, slight tenderness junction of RUQ and epigastric region; NO distension; BS+ and very active ext - no edema, pulses 2+ b/l skin - right upper arm cellulitis vs tick-borne rash vs swelling/redness from an insect bite - erythema nearly all resolved Results & Data Results & Data Vital Signs (Past 12 Hours) Vital Signs Temp Pulse Resp BP Pulse Ox O2 Del Method 08/09/23 16:29 36.6 C 79 16 127/76 99 Room Air 08/09/23 12:46 36.6 C 76 18 129/77 99 Room Air 08/09/23 08:18 36.4 C L 71 18 148/78 H 97 Room Air Laboratory Results Laboratory Results - last 24 hr 08/06/23 08/09/23 08/09/23 05:41 07:18 10:47 Sodium 130 L Potassium 4.0 Chloride 93 L Carbon Dioxide 33 H Anion Gap 4 BUN 7 Creatinine 0.61 Est Cr Clr Drug Dosing 68.9 Est GFR ( Amer) 99.2 Est GFR (Non-Af Amer) 85.6 BUN/Creatinine Ratio 11.5 Glucose 113 H Calcium 8.9 Total Bilirubin 0.9 Direct Bilirubin 0.2 AST 25 ALT 27 Alkaline Phosphatase 87 Troponin I High Sens 6.6 Total Protein 6.8 Albumin 3.7 Lipase 23 TSH 1.942 Babesia microti DNA PCR Not Detected Diagnostic Findings Chest/Abdomen X-ray 08/09/23 10:35 XR abdomen 2V w PA chest HISTORY: 78 years-old Female ongoing upper abd pain with bloating COMPARISON: CT 08/07/2023 TECHNIQUE: PA view of the chest with erect and supine views of the abdomen FINDINGS: Cardiac silhouette is mildly enlarged. No pneumothorax, pleural effusion, airspace consolidation or pulmonary edema. No free air. Bilateral hip arthroplasties. No acute fracture. Scattered large and small bowel air-fluid levels. No evidence of a high-grade small bowel obstruction. Mild distention of the large and small bowel. IMPRESSION: 1. No acute processes of the chest. 2. Mild large and small bowel gaseous distention with scattered air fluid levels, new from the prior CT exam suggestive of ileus. Distal obstruction considered less likely. Follow-up recommended. ACT 112: Negative or not required by law. The above report was generated using voice recognition software. It may contain grammatical, syntax or spelling errors. Electronically signed by: Wilver Henderson M.D. 08/09/2023 12:37 PM EKG - my reading - NSR, no ST changes PG Care Time/CCT Total # of Minutes Spent Total Time Spent with Patient: Total time spent is greater than 50% in coordination of care (as documented) at patient's floor/unit and/or counseling patient: Coding Level of Care Code 40813 SUB INP/OBS CARE 3/50MIN Diagnoses Right upper quadrant abdominal pain R10.11 Sludge in gallbladder K82.8 Abnormal biliary HIDA scan R94.8 Rash R21 Positive Lyme disease serology R76.8 Acute hyponatremia E87.1 Gastroesophageal reflux K21.9 Dyslipidemia E78.5 Hypertension I10 Constipation K59.00
[2023-08-10 07:33] VITALS: BP 126/76; RESP 18; TEMP 97.9; O2SAT 100
[2023-08-10 13:49] VITALS: PULSE 71
--- NOTE | 2023-08-10 14:01 | Discharge Summary ---
Date of Service August 10, 2023 Admission HPI Per Admitting Provider Patient is a 78-year-old female with a past medical history including left breast cancer, GERD, dyslipidemia, chronic mild hyponatremia around 134, hypertension, osteoarthritis, lumbar radiculopathy, superficial peroneal neuropathy, hypercholesterolemia, and basal cell skin cancer. She presents with symptoms as noted above. Discharge Exam gen - NAD, looks well, nontoxic, pleasant mouth - MMM neck - no JVD heart - RRR, s1 s2, no murmur lungs - CTA b/l abd - soft, slight tenderness junction of RUQ and epigastric region; NO distension; BS+ and very active ext - no edema, pulses 2+ b/l skin - right upper arm cellulitis vs tick-borne rash vs swelling/redness from an insect bite - erythema nearly all resolved Discharge Data Allergies Allergy/AdvReac Type Severity Reaction Status Date / Time adhesive tape AdvReac Mild Skin Verified 08/05/23 02:59 irritation ("some tapes") cephalexin AdvReac Mild Vaginitis Verified 08/05/23 02:59 lisinopril AdvReac Mild Cough Verified 08/05/23 02:59 Consultations 08/05/23 04:02 ED Decision to Admit Stat 08/06/23 15:35 Consult General Surgery Routine 08/09/23 10:53 Consult Gastroenterology Routine Ordered Studies 08/05/23 00:36 CT abd pelvis wo con Stat 08/06/23 US abdomen limited Urgent 08/07/23 09:14 CT Abd and Pelvis [CT abd pelvis oral and IV con] Stat Hospital Course (1) Right upper quadrant abdominal pain: had resolved, but then had discomfort again overnight extensive work-up for this pain revealed gall bladder sludge but no signs of acute cholecystitis. HIDA scan without cystic duct obstruction but low EF suggesting biliary dyskinesia. has h/o GERD and this has been aggressively treated with PPI/carafate. I repeated CT abd/pelvis 08/07/23 with both IV/PO contrast. NO appendicitis. NO pancreatitis. NO colitis. NO cholecystitis. Radiology mentioned there was moderate amount of right-sided stool -- she reported NO stools since the previous weekend. Did bowel "prep" yesterday -- took about 7-8 doses of miralax -- NUMEROUS stools (Brown, no blood) since yesterday. Gen surg had seen for the abnormal HIDA/RUQ u/s - no lap anna at this time, potentially an elective surgery as outpatient down the line. Repeat LFTs and lipase again wnl; CBC without leukocytosis. EKG w/o ischemic change. Repeat x-rays of abdomen with some gaseous distension - radiology calling it an ileus - but she is having very frequent stools, thus this is not an ileus. Obtained GI consult - appreciate their assistance. They feel that the discomforts/pains/bloat/etc has been from the severe constipation. Will place the miralax on hold tonight and tomorrow am; allow GI tract to calm down. Watch overnight. (2) Sludge in gallbladder: see #1 above (3) Abnormal biliary HIDA scan: no cystic duct obstruction but EF is low suggesting biliary dyskinesia does have chronic, episodic dyspepsia with pain at times see above (4) Rash: RUE IMPROVING/RESOLVING localized inflammation from insect bite? tick-bite? cellulitis? other? doesn't have classic bulls-eye appearance and IgM on Lyme testing is negative which would argue against Lyme is on keflex/doxy - both will cover cellulitis latter will cover Lyme cont current abx (5) Positive Lyme disease serology: lyme screen is positive - IgG only this would suggest either early disseminated Lyme or chronic doxy for now await western blot (6) Acute hyponatremia: likely 2nd to chronic HCTZ use +/- vomiting +/- poor PO intake urine osm, urine Na noted Na level stable at 130 will simply follow Na levels; is not symptomatic from the mild hyponatremia would not resume HCTZ at discharge (7) Gastroesophageal reflux: see above cont PPI cont carafate QID outpatient EGD?? recommend she stay on PPI and prn carafate until she has outpatient f/u with GI (8) Dyslipidemia: (9) Hypertension: BPs only mildly elevated despite holding HCTZ and amlodipine follow BPs consider not resuming either - the HCTZ is causing low Na, and the amlodipine may have contributed to constipation consider beta topher in satya, if needed (10) Constipation: severe but now resolved see above Plan hopefully d/c in am tomorrow if she has a good night Discharge Plan Discharge Items Patient Disposition: Home - Self-Care Reason For Visit: Right-sided abdominal pain Discharge Diagnosis: 1. right-sided abdominal pain - possibly due to gall bladder disease and/or constipation 2. gastroesophageal reflux disease 3. constipation 4. cellulitis (skin infection) of right upper arm - nearly resolved 5. positive lyme disease test - confirmatory testing is pending 6. abnormal "HIDA" gall bladder scan - follow-up with GI & general surgery needed 7. sludge in gall bladder 8. hyponatremia (low sodium level) - chronic; discharge sodium level 130 Activity: Resume your previous activity Non-emergency contact: Primary Care Provider, Surgeon and Restaurant Assistant Call non-emergency contact if: you have any medication questions, your symptoms worsen, your pain is not controlled and your pain is worsening Follow-up/Referrals: Sudhir Wiggins DO [Physician] - (1-2 weeks) Irineo Grant MD [Physician] - (1-2 weeks ) Luis Farrell [Primary Care Provider] - (within 1 week) Diet: Low Fat Addtl Attending Provider Instructions: Mrs Petty, You were hospitalized due to right sided upper abdominal pain. Your sodium level was also low at time of admission (126, now up to 130). Additional issues included right arm redness as well as a positive lyme disease screening test. An extensive work-up was done looking for the cause of your abdominal pain. CT scans, ultrasound, x-rays, and HIDA scan were all performed. We found that your gall bladder contained a small amount of "sludge" which is a thick, fatty substance. The HIDA scan showed that your gall bladder doesn't contract, or function, normally. None of the testing suggested that the gall bladder was acutely sick/ill. Taken all together there is a good chance that your chronic abdominal complaints could be due to gall bladder disease. In addition to the above we treated you for reflux disease as well as severe constipation. [facility] saw you in consult and while they did not advise removing your gall bladder while here, they did state that you may need the gall bladder out in the future. [facility] saw you for your bloating/stomach discomforts and felt that constipation was contributing heavily to your symptoms. Both the surgeons & GI physicians want to see you in clinic for all of the above problems. The area of redness on the right arm is much improved with antibiotics. Finally, we did hold both of your blood pressure medicines. Despite them being on hold the majority of your blood pressure readings were very acceptable. Your sodium level also improved with holding your diuretic medicine called hydrochlorothiazide. Recommendations - 1. low fat diet (see handout) until you see the surgeon and gastroenterology. 2. for bloating/distension/excess gas - pboc-igu-pgsikzn mylicon (simethicone) every 6 hours as needed. 3. for constipation prevention/maintenance - nmth-fgk-mlamyfo miralax 1 serving or packet once daily; may increase to twice daily dosing if needed. Shoot for 1 soft bowel movement every 1-2 days. You can start the miralax back on 08/11/23. 4. for reflux disease - * restart protonix (pantoprazole) and take daily unless general surgery, GI, or Dr Farrell asks you to stop it. * carafate (sucralfate) every 6 hours as needed for reflux symptoms. * pepcid 20mg every 12 hours as needed for reflux symptoms. 5. for possible Lyme disease (and to treat the right arm cellulitis) - doxycycline 100mg twice daily x 9 days, first dose TONIGHT. * this medicine can cause stomach upset/reflux * this medicine rarely can cause a rash if you get too much sun exposure over the next 10 days; thus, cover up and use sunscreen liberally during this period * if your Lyme testing shows active Lyme disease we will contact you 6. blood pressure medicine - * hold your amlodipine * hold your hydrochlorothiazide * check your blood pressure at home once or twice daily; if your top number readings (the "systolic" blood pressure) are consistently less than 140 you can simply continue to monitor your blood pressure * if your systolic readings are consistently OVER 140 please start - * metoprolol succinate 25mg once daily 7. have Dr Farrell recheck your sodium level when you see him in follow-up. 8. we will help you get follow-up appointments with GI & general surgery; we will work on this starting next Saturday. Return to [facility] if - * you have fevers over 100 degrees * you have severe, constant right-sided abdominal pain (or abdominal pains in any other location) * you have significant nausea and/or vomiting * you cannot eat or drink * you have severe bloating or abdominal distension * any other concerns It was our pleasure to care for you! Pending Studies at Discharge: Yes (confirmatory lyme disease testing ) Stand-Alone Forms: [facility], Smoking Cessation Medications and DC Order Prescriptions: New doxycycline hyclate 100 mg Capsule 100 mg PO BID 9 Days Qty: 18 0RF simethicone [Gas Relief (simethicone)] 80 mg Tablet,Chewable 80 mg PO Q6H PRN (Reason: abdominal distention/excess gas) Qty: 10 0RF Rx Instructions: purchase [id number]-[id number] sucralfate [Carafate] 1 gram tablet 1 g PO Q6H PRN (Reason: heartburn/reflux symptoms) Qty: 30 0RF polyethylene glycol 3350 [Miralax] 17 gram/dose powder 17 g PO DAILY Qty: 238 0RF Rx Instructions: may increase to twice daily if needed/desired; purchase [id number]-[id number] metoprolol succinate 25 mg tablet extended release 24 hr 25 mg PO DAILY Qty: 30 2RF Continued anastrozole 1 mg tablet 1 mg PO QAM Centrum Silver 0.4-300-250 mg-mcg-mcg Tablet 1 tab PO QAM calcium carbonate-vitamin D3 [Calcium 600 + D(3)] 600 mg(1,500mg) -200 unit Tablet 1 tab PO BID omega-3 fatty acids 1,000 mg Capsule 1,000 mg PO HS coenzyme Q10 [Co Q-10] 50 mg Capsule 100 mg PO QPM glucosamine sulfate 1,000 mg Capsule 1,000 mg PO BID Rx Instructions: administer with meals amoxicillin 500 mg Capsule 500 mg PO ONCE PRN (Reason: prior to dental procedures) famotidine 20 mg Tablet 20 mg PO HS PRN (Reason: GERD) nystatin 100,000 unit/gram Powder 1 applic TOPICAL BID PRN (Reason: Rash) Changed pantoprazole 40 mg tablet,delayed release (DR/EC) 40 mg PO DAILY Qty: 30 2RF Held rosuvastatin 10 mg Tablet 10 mg PO QPM Hold Instructions: hold until you see Dr Farrell amlodipine 5 mg tablet 5 mg PO HS Hold Instructions: hold unless Dr Farrell asks you to resume Discontinued hydrochlorothiazide 25 mg tablet 25 mg PO QAM Discharge Orders: Discharge Order (Routine); Ordered 08/10/23 Ordered By: Everardo Omalley/Other Patient Handouts: ED Diet, Low Fat Admission Data Admit Date/Time: 08/07/23 09:15 Attending Provider: Everardo Downing Admit Provider: David Lundy Primary Care Provider: Luis Farrell Other Providers: David Lundy; Irineo Grant; Sudhir Wiggins Other Interventions: Discharge Summary Assessment (RN) Last Done: 08/10/23 13:47 Coding Diagnoses Right upper quadrant abdominal pain R10.11 Sludge in gallbladder K82.8 Abnormal biliary HIDA scan R94.8 Rash R21 Positive Lyme disease serology R76.8 Acute hyponatremia E87.1 Gastroesophageal reflux K21.9 Dyslipidemia E78.5 Hypertension I10 Constipation K59.00
[2023-08-10 14:58] LABS: Adenovirus F 40/41 PCR Not Detected (NotDetected); Astrovirus PCR Not Detected (NotDetected); Campylobacter PCR Not Detected (NotDetected); Cryptosporidium PCR Not Detected (NotDetected); Cyclospora cayetanensis PCR Not Detected (NotDetected); Entamoeba histolytica PCR Not Detected (NotDetected); Enteroaggregative E.coli(EAEC) Not Detected (NotDetected); Enteropathogenic E.coli (EPEC) Not Detected (NotDetected); Enterotoxigenic E.coli (ETEC) Not Detected (NotDetected); Giardia lamblia PCR Not Detected (NotDetected); Norovirus GI/GII PCR Not Detected (NotDetected); Plesiomonas shigelloides PCR Not Detected (NotDetected); Rotavirus A PCR Not Detected (NotDetected); Salmonella PCR Not Detected (NotDetected); Sapovirus PCR Not Detected (NotDetected); Shiga-like Toxin E.coli (STEC) Not Detected (NotDetected); Shigella/Enteroinvasive E.coli Not Detected (NotDetected); Vibrio cholerae PCR Not Detected (NotDetected); Vibrio species PCR Not Detected (NotDetected); Yersinia enterocolitica PCR Not Detected (NotDetected)
== END 2023-08-10 14:22 | disposition home or self-care (01) | DRG 392 ==
LOC: 2W 00:26 → ED 00:26 → SUATTDRO 04:16 → 2W 05:09